=== PATIENT | male | born 1955 | race Caucasian/White ===

== ENCOUNTER 2017-10-31 06:10 | Observation (INO) | payer OTHER ==
[2017-10-31] MEDS ORDERED: Iopamidol 755 Mg/ML 100 ML Bottle IVPUSH ONE (07:26)
[2017-10-31] MEDS ORDERED: Iopamidol 755 MG/ML 50 ML Bottle IVPUSH ONE (07:26)
[2017-10-31] MEDS ORDERED: Sodium Chloride 0.9% 10 ML Syringe FLUSH PRN (07:26)
[2017-10-31] MEDS ORDERED: Sodium Chloride 0.9% 100 ML IV SCH (07:30)
--- NOTE | 2017-10-31 08:27 | CT ---
CT chest Technique: Multiple axial sections through the chest were obtained. Intravenous contrast was utilized. Study has been performed as a pulmonary angiogram protocol. Findings: Small bilateral pleural effusions are seen. Slightly prominent mediastinal lymph nodes are noted. Largest lymph node measures approximately 2.0 cm in size. Pulmonary arteries are well opacified. No filling defects are seen to indicate pulmonary embolism. Mild coronary artery calcification is seen. Increased lung markings are seen believed to represent mild pulmonary vascular congestion. Scattered emphysematous changes are seen within both lungs. Heart is mildly enlarged. Small portion of the visualized upper abdominal structures are within normal limits. Scattered degenerative spurring is noted within the spine. Impression: 1. No findings of pulmonary embolism. 2. Small bilateral pleural effusions with suggestion of pulmonary vascular congestion. Findings may represent CHF. 3. Emphysematous changes. 4. Slightly prominent lymph nodes within the mediastinum. No prior chest CT is available to confirm stability. Findings may relate to old inflammatory process. Recommend follow-up contrast-enhanced chest CT in 6 months to confirm stability. Diagnostic code #3
--- NOTE | 2017-10-31 08:35 | EDM.PDOC ---
ED HPI GENERAL MEDICAL PROBLEM - General Chief Complaint: Respiratory Problem Stated Complaint: SOB Time Seen by Provider: 10/31/17 07:07 Source of Information: Reports: Patient History Limitations: Reports: No Limitations - History of Present Illness INITIAL COMMENTS - FREE TEXT/NARRATIVE: The patient states that he has had dyspnea at rest, nasal congestion, and a cough occasionally productive of yellowish sputum for the past 2 days. He developed orthopnea last night. He denies recent chest pain or palpitations. No recent fever, nausea, vomiting, constipation, diarrhea, or urinary symptoms. No prior similar symptoms. The patient's PCP is Dr[facility] - Related Data Allergies Allergy/AdvReac Type Severity Reaction Status Date / Time No Known Allergies Allergy Verified 10/31/17 06:18 Home Meds: Home Meds Carvedilol 25 mg PO BID 10/17/14 [History] Ibuprofen 800 mg PO BID PRN 10/17/14 [History] Insulin Aspart [NovoLOG] 2 - 8 unit SUBCUT TIDMEALS 10/17/14 [History] Insulin Glargine,Hum.Rec.Anlog [Lantus Solostar] 50 units SUBCUT DAILY 10/17/14 [History] Lisinopril 10 mg PO DAILY 10/17/14 [History] amLODIPine Besylate [Amlodipine Besylate] 10 mg PO DAILY 10/17/14 [History] atorvaSTATin Calcium [Atorvastatin Calcium] 20 mg PO BEDTIME 10/17/14 [History] Cyclobenzaprine [Flexeril] 5 - 10 mg PO Q8H PRN 12/26/14 [History] Past Medical History Cardiovascular History: Reports: High Cholesterol, Hypertension Musculoskeletal History: Reports: Arthritis Endocrine/Metabolic History: Reports: Diabetes, Type II, Obesity/BMI 30+ Social & Family History - Tobacco Use Smoking Status *Q: Current Every Day Smoker Years of Tobacco use: 40 Packs/Tins Daily: 0.5 - Alcohol Use Alcohol Use History: Yes Date/Time of Last Drink Comment: Stopped drinking late - Recreational Drug Use Recreational Drug Use: No - Living Situation & Occupation Living situation: Reports: Single, Alone Occupation: Unemployed ED ROS GENERAL - Review of Systems Review Of Systems: ROS reveals no pertinent complaints other than HPI. ED EXAM, GENERAL - Physical Exam Exam: See Below Exam Limited By: No Limitations General Appearance: Alert, WD/WN, Mild Distress (Appears dyspneic, diaphoretic) Eye Exam: Bilateral Eye: Normal Inspection Ears: Normal External Exam, Hearing Grossly Normal Nose: Normal Inspection, No Blood Throat/Mouth: Normal Inspection, Normal Lips, Normal Voice, No Airway Compromise Head: Atraumatic, Normocephalic Neck: Normal Inspection, Full Range of Motion Respiratory/Chest: No Respiratory Distress, No Accessory Muscle Use, Crackles ( fine, bibasilar) Cardiovascular: Normal Peripheral Pulses, Regular Rate, Rhythm, No Gallop, No JVD, No Murmur, No Rub Peripheral Pulses: 3+: Radial (L), Radial (R) GI/Abdominal: Normal Bowel Sounds, Soft, Non-Tender, No Organomegaly, No Distention, No Abnormal Bruit, No Mass, Other (Obese) (Male) Exam: Deferred Rectal (Males) Exam: Deferred Back Exam: Normal Inspection, Full Range of Motion, Other (Lipoma) Extremities: Normal Inspection, Normal Range of Motion, No Pedal Edema, Normal Capillary Refill Neurological: Alert, Oriented, Normal Cognition, No Motor/Sensory Deficits Psychiatric: Normal Affect Skin Exam: Warm, Intact, Normal Color, No Rash, Diaphoretic EKG INTERPRETATION EKG Date: 10/31/17 Time: 06:22 Rhythm: Other (Sinus tachycardia) Rate (Beats/Min): 108 [place]: LAD-Left [place] Deviation P-Wave: Present QRS: RBBB ST-T: Normal QT: Normal Comparison: NA - No Prior EKG Course - Vital Signs Last Recorded V/S: Last Vital Signs Temp 36.6 C 10/31/17 06:19 Pulse 108 H 10/31/17 06:19 Resp 20 10/31/17 06:19 BP 154/101 H 10/31/17 06:19 Pulse Ox - Orders/Labs/Meds Orders: Active Orders 24 hr Category Date Time Status Admission Status [Patient Status] [ADT] Routine ADT 10/31/17 10:12 Active EKG Documentation Completion [RC] ASDIRECTED Care 10/31/17 06:28 Active Chest 1V Frontal [CR] Stat Exams 10/31/17 06:36 Taken Sodium Chloride 0.9% [Normal Saline] 100 ml Med 10/31/17 07:30 Active IV ASDIRECTED Sodium Chloride 0.9% [Saline Flush] Med 10/31/17 07:26 Active 10 ml FLUSH ONETIME PRN EKG 12 Lead [EK] Stat Ther 10/31/17 06:28 Ordered Medication Orders Sodium Chloride (Normal Saline) 100 mls @ 75 mls/hr IV ASDIRECTED RISHI Last Admin: 10/31/17 08:05 Dose: 75 mls/hr Sodium Chloride (Saline Flush) 10 ml FLUSH ONETIME PRN PRN Reason: IV FLUSH Last Admin: 10/31/17 08:05 Dose: 10 ml Labs: Laboratory Tests 10/31/17 10/31/17 10/31/17 Range/Units 06:25 06:25 06:25 WBC 8.56 (4.23-9.07) K/mm3 RBC 5.18 (4.63-6.08) M/mm3 Hgb 14.4 (13.7-17.5) gm/L Hct 44.3 (40.1-51.0) % MCV 85.5 (79.0-92.2) fl MCH 27.8 (25.7-32.2) pg MCHC 32.5 (32.2-35.5) g/dl RDW Std Deviation 42.0 (35.1-43.9) fL Plt Count 267 (163-337) K/mm3 MPV 11.1 (9.4-12.3) fl Neut % (Auto) 61.3 (34.0-67.9) % Lymph % (Auto) 25.5 (21.8-53.1) % [place] % (Auto) 9.1 (5.3-12.2) % Eos % (Auto) 3.5 (0.8-7.0) Baso % (Auto) 0.4 (0.1-1.2) % Neut # (Auto) 5.25 (1.78-5.38) K/mm3 Lymph # (Auto) 2.18 (1.32-3.57) K/mm3 [place] # (Auto) 0.78 (0.30-0.82) K/mm3 Eos # (Auto) 0.30 (0.04-0.54) K/mm3 Baso # (Auto) 0.03 (0.01-0.08) K/mm3 D-Dimer, Quantitative 2.48 H (0.19-0.50) mg/L Sodium 134 L (136-145) mEq/L Potassium 4.4 (3.5-5.1) mEq/L Chloride 102 (98-107) mEq/L Carbon Dioxide 26 (21-32) mEq/L Anion Gap 10.4 (5-15) BUN 11 (7-18) mg/dL Creatinine 1.0 (0.7-1.3) mg/dL Est Cr Clr Drug Dosing TNP Estimated GFR (MDRD) > 60 (>60) mL/min BUN/Creatinine Ratio 11.0 L (14-18) Glucose 287 H (74-106) mg/dL Calcium 9.5 (8.5-10.1) mg/dL Magnesium (1.8-2.4) mg/dl Total Bilirubin 0.5 (0.2-1.0) mg/dL AST 27 (15-37) U/L ALT 68 H (16-63) U/L Alkaline Phosphatase 112 (46-116) U/L Troponin I < 0.017 (0.00-0.056) ng/mL NT-Pro-B Natriuret Pep (0-125) pg/mL Total Protein 7.5 (6.4-8.2) g/dl Albumin 3.2 L (3.4-5.0) g/dl Globulin 4.3 gm/dL Albumin/Globulin Ratio 0.7 L (1-2) 18 10/31/17 Range/Units 06:25 06:25 WBC (4.23-9.07) K/mm3 RBC (4.63-6.08) M/mm3 Hgb (13.7-17.5) gm/L Hct (40.1-51.0) % MCV (79.0-92.2) fl MCH (25.7-32.2) pg MCHC (32.2-35.5) g/dl RDW Std Deviation (35.1-43.9) fL Plt Count (163-337) K/mm3 MPV (9.4-12.3) fl Neut % (Auto) (34.0-67.9) % Lymph % (Auto) (21.8-53.1) % [place] % (Auto) (5.3-12.2) % Eos % (Auto) (0.8-7.0) Baso % (Auto) (0.1-1.2) % Neut # (Auto) (1.78-5.38) K/mm3 Lymph # (Auto) (1.32-3.57) K/mm3 [place] # (Auto) (0.30-0.82) K/mm3 Eos # (Auto) (0.04-0.54) K/mm3 Baso # (Auto) (0.01-0.08) K/mm3 D-Dimer, Quantitative (0.19-0.50) mg/L Sodium (136-145) mEq/L Potassium (3.5-5.1) mEq/L Chloride (98-107) mEq/L Carbon Dioxide (21-32) mEq/L Anion Gap (5-15) BUN (7-18) mg/dL Creatinine (0.7-1.3) mg/dL Est Cr Clr Drug Dosing Estimated GFR (MDRD) (>60) mL/min BUN/Creatinine Ratio (14-18) Glucose (74-106) mg/dL Calcium (8.5-10.1) mg/dL Magnesium 1.9 (1.8-2.4) mg/dl Total Bilirubin (0.2-1.0) mg/dL AST (15-37) U/L ALT (16-63) U/L Alkaline Phosphatase (46-116) U/L Troponin I (0.00-0.056) ng/mL NT-Pro-B Natriuret Pep 1569 H (0-125) pg/mL Total Protein (6.4-8.2) g/dl Albumin (3.4-5.0) g/dl Globulin gm/dL Albumin/Globulin Ratio (1-2) Meds: Medications Generic Name Dose Route Start Last Admin Trade Name Freq PRN Reason Stop Dose Admin Sodium Chloride 100 mls @ 75 mls/hr 10/31/17 07:30 10/31/17 08:05 Normal Saline IV 75 mls/hr ASDIRECTED RISHI Administration Sodium Chloride 10 ml 10/31/17 07:26 10/31/17 08:05 Saline Flush FLUSH 10 ml ONETIME PRN Administration IV FLUSH Discontinued Medications Generic Name Dose Route Start Last Admin Trade Name Freq PRN Reason Stop Dose Admin Furosemide 40 mg 10/31/17 08:36 10/31/17 09:07 Lasix IVPUSH 10/31/17 08:37 40 mg NOW ONE Administration Iopamidol 50 ml 10/31/17 07:26 10/31/17 08:05 Isovue-370 (76%) IVPUSH 10/31/17 07:27 50 ml ONETIME ONE Administration Iopamidol 100 ml 10/31/17 07:26 10/31/17 08:05 Isovue-370 (76%) IVPUSH 10/31/17 07:27 100 ml ONETIME ONE Administration - Re-Assessments/Exams Free Text/Narrative Re-Assessment/Exam: 10/31/17 06:57 Portable chest radiograph reviewed. There is cardiomegaly and mild pulmonary vascular congestion, consistent with decompensated CHF. No pleural effusions seen. No focal infiltrate. No pneumothorax. Formal read per the Radiologist pending. 10/31/17 08:34 CT angiogram of the chest is read by Dr. Cross as: 1. No findings of pulmonary embolism. 2. Small bilateral pleural effusions with suggestion of pulmonary vascular congestion. Findings may represent CHF. 3. Emphysematous changes. 4. Slightly prominent lymph nodes within the mediastinum. No prior chest CT is available to confirm stability. Findings may relate to old inflammatory process. Recommend follow-up and contrast-enhanced chest CT in 6 months to confirm stability. 10/31/17 09:17 Test results discussed with the patient. I recommended admission to the hospital for an echocardiogram and medication modification. He agrees to admission. Case discussed with Dr. Rodriguez at 09:11. He agrees to admit the patient. 10/31/17 10:11 Notified that the patient only qualifies for observation at this time. Departure - Departure Time of Disposition: 09:15 Disposition: Refer to Observation Condition: Fair Clinical Impression: CHF (congestive heart failure), Hyperglycemia due to type 2 diabetes mellitus - Discharge Information Referrals: Hilaria Moreno DO [Primary Care Provider] - - My Orders Last 24 Hours: My Active Orders 10/31/17 06:28 EKG Documentation Completion [RC] ASDIRECTED EKG 12 Lead [EK] Stat 10/31/17 06:36 Chest 1V Frontal [CR] Stat 10/31/17 07:26 Sodium Chloride 0.9% [Saline Flush] 10 ml FLUSH ONETIME PRN 10/31/17 07:30 Sodium Chloride 0.9% [Normal Saline] 100 ml IV ASDIRECTED 10/31/17 10:12 Admission Status [Patient Status] [ADT] Routine - Assessment/Plan Last 24 Hours: My Active Orders 10/31/17 06:28 EKG Documentation Completion [RC] ASDIRECTED EKG 12 Lead [EK] Stat 10/31/17 06:36 Chest 1V Frontal [CR] Stat 10/31/17 07:26 Sodium Chloride 0.9% [Saline Flush] 10 ml FLUSH ONETIME PRN 10/31/17 07:30 Sodium Chloride 0.9% [Normal Saline] 100 ml IV ASDIRECTED 10/31/17 10:12 Admission Status [Patient Status] [ADT] Routine
[2017-10-31] MEDS ORDERED: Furosemide 40 MG/4 ML VIAL IVPUSH ONE (08:36)
--- NOTE | 2017-10-31 09:32 | PCM.HP ---
H&P History of Present Illness - General Date of Service: 10/31/17 Admit Problem/Dx: CHF Source of Information: Patient, Old Records, Provider, RN, RN Notes Reviewed History Limitations: Reports: No Limitations - History of Present Illness Initial Comments - Free Text/Narative: Noman Verduzco is a 62 yo male who presented to our ED today (10/31/17) with dyspnea at rest, nasal congestion, and a cough with occasional yellowish sputum production which has been present for the past 2 days. Reports of apnea which started last night. Denies any recent chest pain or palpitations. No recent fever, nausea, vomiting, constipation, diarrhea, urinary symptoms, or prior similar symptoms. In the ED temp was 36.6 Celsius. Pulse 108. Respirations 20. Blood pressure was elevated at 154/101. 12-lead EKG was obtained which shows sinus tachycardia at 108 bpm. A right bundle branch block is present. There is no prior EKG for comparison. No ST segment or T-wave abnormalities are noted. This is per the ED provider. Labs are obtained: There is no leukocytosis with a white count of 8.56. Hemoglobin 14.4. Hematocrit 44.3. He is normocytic. Platelets are good at 267,000. Neutrophils are good at 61.3%. D-dimer is high at 2.48. Sodium is just slightly low at 134. Potassium good at 4.4. Chloride 102. Carbon dioxide 26. Anion gap 10.4. BUN is 11. Creatinine 1.0. EGFR greater than 60. Glucose is high at 287. Calcium 9.5. Magnesium 1.9. Bilirubin 0.5. AST is 27, ALT 68, alkaline phosphatase 112. Troponin is negative at less than 0.017. Protein is 7.5. Albumin is slightly low at 3.2. ProBNP is 1569. He is given 40 mg IV push Lasix. Her chest x-ray is obtained and interpreted by Dr. Cross as having cardiomegaly with mild pulmonary vascular congestion. Chest CTA is obtained due to the elevated d-dimer. This is interpreted by Dr. Cross as "1. No findings of pulmonary embolism. 2. Small bilateral pleural effusions with suggestion of pulmonary vascular congestion area findings may represent CHF. 3. Emphysematous changes. 4. Slightly prominent lymph nodes within the mediastinum. No prior chest CTs available to confirm stability. Findings may relate to old inflammatory process. Recommend follow-up contrast enhanced chest CT in 6 months to confirm stability." He carries a history of: HLD, HTN, arthritis, type II DM. He is a current every day half pack a day smoker. He subsequently admitted to the medical floor observation status with telemetry. He is a full code. His primary care [facility] - Related Data Allergies/Adverse Reactions: Allergies Allergy/AdvReac Type Severity Reaction Status Date / Time No Known Allergies Allergy Verified 10/31/17 06:18 Home Medications: Home Meds Carvedilol 25 mg PO BID 10/17/14 [History] Ibuprofen 800 mg PO BID PRN 10/17/14 [History] Insulin Aspart [NovoLOG] 2 - 8 unit SUBCUT TIDMEALS 10/17/14 [History] Insulin Glargine,Hum.Rec.Anlog [Lantus Solostar] 50 units SUBCUT DAILY 10/17/14 [History] Lisinopril 10 mg PO DAILY 10/17/14 [History] amLODIPine Besylate [Amlodipine Besylate] 10 mg PO DAILY 10/17/14 [History] atorvaSTATin Calcium [Atorvastatin Calcium] 20 mg PO BEDTIME 10/17/14 [History] Cyclobenzaprine [Flexeril] 5 - 10 mg PO Q8H PRN 12/26/14 [History] Past Medical History Endocrine/Metabolic History: Reports: Diabetes, Type I - Past Surgical History Musculoskeletal Surgical History: Reports: Knee Replacement Social & Family History - Tobacco Use Smoking Status *Q: Current Every Day Smoker Years of Tobacco use: 50 Packs/Tins Daily: 0.5 - Recreational Drug Use Recreational Drug Use: No H&P Review of Systems - Review of Systems: Review Of Systems: See Below General: Reports: No Symptoms. Denies: Fever, Chills, Malaise, Weakness, Fatigue HEENT: Reports: Sinus Congestion. Denies: Ear Pain, Eye Pain, Rhinitis, Post Nasal Drip, Sore Throat, Visual Changes Pulmonary: Reports: Shortness of Breath, Cough. Denies: Wheezing, Pleuritic Chest Pain Cardiovascular: Reports: Dyspnea on Exertion, Orthopnea, Edema ("mild in both legs"), Blood Pressure Problem. Denies: Chest Pain, Palpitations, Lightheadedness Gastrointestinal: Reports: No Symptoms. Denies: Abdominal Pain, Constipation, Diarrhea, Nausea, Vomiting Genitourinary: Reports: No Symptoms. Denies: Dysuria, Burning Musculoskeletal: Reports: Other (leg cramping ) Skin: Reports: No Symptoms Psychiatric: Reports: No Symptoms Neurological: Reports: No Symptoms Hematologic/Lymphatic: Reports: No Symptoms Immunologic: Reports: No Symptoms Exam - Exam Exam: See Below - Vital Signs Vital Signs: Last Vital Signs Temp 97.9 F 10/31/17 06:19 Pulse 108 H 10/31/17 06:19 Resp 20 10/31/17 06:19 BP 154/101 H 10/31/17 06:19 Pulse Ox Weight: 215 lb - Exam Quality Assessment: DVT Prophylaxis General: Alert, Oriented, Cooperative, Other (Obese) HEENT: Conjunctiva Clear, EACs Clear, EOMI, Hearing Intact, Mucosa Moist & North , Nares Patent, PERRLA Neck: Supple, Trachea Midline Lungs: Clear to Auscultation, Normal Respiratory Effort Cardiovascular: Regular Rate, Regular Rhythm GI/Abdominal Exam: Normal Bowel Sounds, Soft, Non-Tender, No Distention (Male) Exam: Deferred Rectal (Males) Exam: Deferred Back Exam: Normal Inspection, Full Range of Motion Extremities: Normal Inspection, Normal Range of Motion, Non-Tender, No Pedal Edema, Normal Capillary Refill Peripheral Pulses: 2+: Posterior Tibial (L), Posterior Tibial (R), Dorsalis Pedis (L), Dorsalis Pedis (R), 3+: Radial (L), Radial (R) Skin: Warm, Dry, Intact Neurological: Cranial Nerves Intact (grossly) Neuro Extensive - Mental Status: Alert, Oriented x3, Normal Mood/Affect, Memory Intact Psychiatric: Alert, Normal Affect, Normal Mood - Patient Data Lab Results Last 24 hrs: Laboratory Results - last 24 hr 10/31/17 10/31/17 10/31/17 Range/Units 06:25 06:25 06:25 WBC 8.56 (4.23-9.07) K/mm3 RBC 5.18 (4.63-6.08) M/mm3 Hgb 14.4 (13.7-17.5) gm/L Hct 44.3 (40.1-51.0) % MCV 85.5 (79.0-92.2) fl MCH 27.8 (25.7-32.2) pg MCHC 32.5 (32.2-35.5) g/dl RDW Std Deviation 42.0 (35.1-43.9) fL Plt Count 267 (163-337) K/mm3 MPV 11.1 (9.4-12.3) fl Neut % (Auto) 61.3 (34.0-67.9) % Lymph % (Auto) 25.5 (21.8-53.1) % Walsh % (Auto) 9.1 (5.3-12.2) % Eos % (Auto) 3.5 (0.8-7.0) Baso % (Auto) 0.4 (0.1-1.2) % Neut # (Auto) 5.25 (1.78-5.38) K/mm3 Lymph # (Auto) 2.18 (1.32-3.57) K/mm3 Walsh # (Auto) 0.78 (0.30-0.82) K/mm3 Eos # (Auto) 0.30 (0.04-0.54) K/mm3 Baso # (Auto) 0.03 (0.01-0.08) K/mm3 D-Dimer, Quantitative 2.48 H (0.19-0.50) mg/L Sodium 134 L (136-145) mEq/L Potassium 4.4 (3.5-5.1) mEq/L Chloride 102 (98-107) mEq/L Carbon Dioxide 26 (21-32) mEq/L Anion Gap 10.4 (5-15) BUN 11 (7-18) mg/dL Creatinine 1.0 (0.7-1.3) mg/dL Est Cr Clr Drug Dosing TNP Estimated GFR (MDRD) > 60 (>60) mL/min BUN/Creatinine Ratio 11.0 L (14-18) Glucose 287 H (74-106) mg/dL Calcium 9.5 (8.5-10.1) mg/dL Magnesium (1.8-2.4) mg/dl Total Bilirubin 0.5 (0.2-1.0) mg/dL AST 27 (15-37) U/L ALT 68 H (16-63) U/L Alkaline Phosphatase 112 (46-116) U/L Troponin I < 0.017 (0.00-0.056) ng/mL NT-Pro-B Natriuret Pep (0-125) pg/mL Total Protein 7.5 (6.4-8.2) g/dl Albumin 3.2 L (3.4-5.0) g/dl Globulin 4.3 gm/dL Albumin/Globulin Ratio 0.7 L (1-2) 10/31/17 10/31/17 Range/Units 06:25 06:25 WBC (4.23-9.07) K/mm3 RBC (4.63-6.08) M/mm3 Hgb (13.7-17.5) gm/L Hct (40.1-51.0) % MCV (79.0-92.2) fl MCH (25.7-32.2) pg MCHC (32.2-35.5) g/dl RDW Std Deviation (35.1-43.9) fL Plt Count (163-337) K/mm3 MPV (9.4-12.3) fl Neut % (Auto) (34.0-67.9) % Lymph % (Auto) (21.8-53.1) % Walsh % (Auto) (5.3-12.2) % Eos % (Auto) (0.8-7.0) Baso % (Auto) (0.1-1.2) % Neut # (Auto) (1.78-5.38) K/mm3 Lymph # (Auto) (1.32-3.57) K/mm3 Walsh # (Auto) (0.30-0.82) K/mm3 Eos # (Auto) (0.04-0.54) K/mm3 Baso # (Auto) (0.01-0.08) K/mm3 D-Dimer, Quantitative (0.19-0.50) mg/L Sodium (136-145) mEq/L Potassium (3.5-5.1) mEq/L Chloride (98-107) mEq/L Carbon Dioxide (21-32) mEq/L Anion Gap (5-15) BUN (7-18) mg/dL Creatinine (0.7-1.3) mg/dL Est Cr Clr Drug Dosing Estimated GFR (MDRD) (>60) mL/min BUN/Creatinine Ratio (14-18) Glucose (74-106) mg/dL Calcium (8.5-10.1) mg/dL Magnesium 1.9 (1.8-2.4) mg/dl Total Bilirubin (0.2-1.0) mg/dL AST (15-37) U/L ALT (16-63) U/L Alkaline Phosphatase (46-116) U/L Troponin I (0.00-0.056) ng/mL NT-Pro-B Natriuret Pep 1569 H (0-125) pg/mL Total Protein (6.4-8.2) g/dl Albumin (3.4-5.0) g/dl Globulin gm/dL Albumin/Globulin Ratio (1-2) Result Diagrams: 10/31/17 06:25 18 06:25 - Problem List (1) CHF (congestive heart failure) SNOMED Code(s): 64249311 ICD Code: I50.9 - HEART FAILURE, UNSPECIFIED Status: Suspected Priority: Medium Current Visit: Yes Qualifiers: Heart failure type: unspecified Heart failure chronicity: unspecified Qualified Code(s): I50.9 - Heart failure, unspecified (2) HLD (hyperlipidemia) SNOMED Code(s): 30999935 ICD Code: E78.5 - HYPERLIPIDEMIA, UNSPECIFIED Status: Chronic Priority: Medium Current Visit: No Qualifiers: Hyperlipidemia type: unspecified Qualified Code(s): E78.5 - Hyperlipidemia , unspecified (3) HTN (hypertension) SNOMED Code(s): 72873156 ICD Code: I10 - ESSENTIAL (PRIMARY) HYPERTENSION Status: Chronic Priority : Medium Current Visit: Yes Qualifiers: Hypertension type: unspecified Qualified Code(s): I10 - Essential (primary ) hypertension (4) Arthritis SNOMED Code(s): 5147335 ICD Code: M19.90 - UNSPECIFIED OSTEOARTHRITIS, UNSPECIFIED SITE Status: Chronic Priority: Medium Current Visit: No (5) Tobacco use disorder SNOMED Code(s): 322389099 ICD Code: F17.200 - NICOTINE DEPENDENCE, UNSPECIFIED, UNCOMPLICATED Status : Chronic Priority: Medium Current Visit: Yes (6) Hyperglycemia due to type 2 diabetes mellitus SNOMED Code(s): 303027168621283, 195029797683945 ICD Code: E11.65 - TYPE 2 DIABETES MELLITUS WITH HYPERGLYCEMIA Status: Acute Priority: High Current Visit: Yes Qualifiers: Diabetes mellitus senior living insulin use: with senior living use Qualified Code( s): E11.65 - Type 2 diabetes mellitus with hyperglycemia; Z79.4 - 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 (7) Elevated brain natriuretic peptide (BNP) level SNOMED Code(s): 800110686, 589606283 ICD Code: R79.89 - OTHER SPECIFIED ABNORMAL FINDINGS OF BLOOD CHEMISTRY Status: Acute Priority: High Current Visit: Yes (8) Elevated d-dimer SNOMED Code(s): 251432309 ICD Code: R79.89 - OTHER SPECIFIED ABNORMAL FINDINGS OF BLOOD CHEMISTRY Status: Acute Priority: High Current Visit: Yes Problem List Initiated/Reviewed/Updated: Yes Orders Last 24hrs: Active Orders 24 hr Category Date Time Status EKG Documentation Completion [RC] ASDIRECTED Care 10/31/17 06:28 Active Chest 1V Frontal [CR] Stat Exams 10/31/17 06:36 Taken Sodium Chloride 0.9% [Normal Saline] 100 ml Med 10/31/17 07:30 Active IV ASDIRECTED Sodium Chloride 0.9% [Saline Flush] Med 10/31/17 07:26 Active 10 ml FLUSH ONETIME PRN EKG 12 Lead [EK] Stat Ther 10/31/17 06:28 Ordered Medication Orders Sodium Chloride (Normal Saline) 100 mls @ 75 mls/hr IV ASDIRECTED RISHI Last Admin: 10/31/17 08:05 Dose: 75 mls/hr Sodium Chloride (Saline Flush) 10 ml FLUSH ONETIME PRN PRN Reason: IV FLUSH Last Admin: 10/31/17 08:05 Dose: 10 ml Assessment/Plan Comment:: I/P: Acute: Suspected CHF -No history of CHF per patient and prior charts -Reports dyspnea at rest, productive cough, orthopnea, mild leg swelling over past few days -Pro BNP 1569 in ED -40mg IVP lasix given in ED with good urine return -CXR in ED (10/31/17) notes cardiomegaly and mild pulmonary congestion -Chest CTA (10/31/17): -No findings of PE -Small bilateral pleural effusions suggesting pulmonary vascular congestion. Findings may represent CHF -Emphysematous changes -Slightly prominent lymph nodes within mediastinum. No prior chest CT available to confirm stability. Findings may be related to old inflammatory process. Recommend follow-up contrast enhanced chest CT in 6 months to confirm stability. -Start Lasix 20mg daily IVP -Echo obtained 10/31/17 - results pending -Monitor I&O along with daily weight Hyperglycemia -Type II DM -On home long acting and sliding scale insulin -Reports he takes blood sugar at every meal with sugars usually 150-160 range -Home long acting and sliding scale per protocol here -Blood sugar check QID AC and Bedtime -Diabetic Ed consult - reports he sees [place] life skills educator but it has been awhile -A1C ordered -Recommend Jardiance or Victoza for cardiac benefit Tobacco use disorder -Reportedly smokes 0.5 pack per day -40 year smoking history -Has "cut down quite a bit" over past few months -Tobacco patch while here -Smoking cessation counseling Elevated D-Dimer -D-dimer 2.48 -Negative CTA for PE Enlarged lymph nodes within mediastinum -Largest is 2 cm in size -No prior CTA for comparison -May be due to old inflammatory process -Dr. 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
--- NOTE | 2017-10-31 10:39 | CR ---
Chest: Frontal view of the chest was obtained. Comparison: No prior chest x-ray. Heart is enlarged. Pulmonary vessels are congested. Lungs otherwise are clear. Bony structures are grossly intact. Impression: 1. Cardiomegaly with mild pulmonary vascular congestion. Diagnostic code #3
[2017-10-31] MEDS ORDERED: Ondansetron 4 MG/2 ML SDV IV PRN (11:53)
[2017-10-31] MEDS ORDERED: Polyethylene Glycol 3350 Powder 17 GM Packet PO PRN (11:53)
[2017-10-31] MEDS ORDERED: Ondansetron 4 MG Tab.DIS PO PRN (11:53)
[2017-10-31] MEDS ORDERED: Bisacodyl 5 MG Tab PO PRN (11:53)
[2017-10-31] MEDS ORDERED: Acetaminophen 325 MG Tab PO PRN (11:53)
[2017-10-31] MEDS ORDERED: Docusate Sodium 100 MG Cap PO PRN (11:53)
[2017-10-31] MEDS ORDERED: Metoprolol Tartrate 5 MG/5 ML SDV IVPUSH PRN (11:57)
[2017-10-31] MEDS ORDERED: hydrALAZINE 20 MG/ML SDV IVPUSH PRN (11:57)
[2017-10-31] MEDS ORDERED: 50% Dextrose in Water 50 ML Syringe IVPUSH PRN (11:59)
[2017-10-31] MEDS ORDERED: Cyclobenzaprine 10 MG Tab PO PRN (13:11)
[2017-10-31] MEDS ORDERED: Magnesium Oxide 400 MG Tab PO ONE (14:03)
[2017-10-31] MEDS: Insulin Aspart 100 Units/ML 3 ML Pen SUBCUT SCH ×3 (16:57→21:31)
[2017-10-31] MEDS ORDERED: Nicotine 21 MG/24 Hr Patch TRDERM ONE ×2 (17:16→18:00)
[2017-10-31] MEDS: Carvedilol 12.5 MG Tab PO SCH (20:41)
[2017-10-31] MEDS ORDERED: Simvastatin 20 MG Tab PO SCH (21:00)
[2017-11-01] MEDS: Albuterol/Ipratropium 3.0-0.5 MG/3 ML Neb Soln NEB PRN ×2 (01:21→12:15)
[2017-11-01] MEDS ORDERED: Furosemide 40 MG/4 ML VIAL IVPUSH ONE (02:21)
[2017-11-01] MEDS ORDERED: Morphine 2 MG/ML Syringe IVPUSH PRN (02:23)
[2017-11-01] MEDS: Acetaminophen/HYDROcodone 325-5 MG Tab PO PRN ×3 (02:44→13:14)
[2017-11-01] MEDS: Insulin Aspart 100 Units/ML 3 ML Pen SUBCUT SCH (08:23)
[2017-11-01] MEDS: Carvedilol 12.5 MG Tab PO SCH (08:25)
[2017-11-01] MEDS ORDERED: amLODIPine 10 MG Tab PO SCH (09:00)
[2017-11-01] MEDS ORDERED: Furosemide 20 MG/2 ML VIAL IVPUSH SCH (09:00)
[2017-11-01] MEDS ORDERED: Insulin Detemir 100 Units/ML 3 ML Pen SUBCUT SCH ×2 (09:00→21:00)
[2017-11-01] MEDS ORDERED: Aspirin 81 MG Tab.Chew PO SCH (09:00)
[2017-11-01] MEDS ORDERED: Nicotine 21 MG/24 Hr Patch TRDERM SCH (09:00)
[2017-11-01] MEDS ORDERED: Magnesium Oxide 400 MG Tab PO ONE (09:00)
--- NOTE | 2017-11-01 09:31 | PCM.PN ---
- General Info Date of Service: 11/01/17 Admission Dx/Problem (Free Text): CHF - Patient Data Vitals - Most Recent: Last Vital Signs Temp 98.1 F 10/31/17 14:54 Pulse 97 11/01/17 08:25 Resp 20 10/31/17 20:38 BP 129/64 11/01/17 08:25 Pulse Ox 96 10/31/17 20:38 Weight - Most Recent: 215 lb I&O - Last 24 Hours: Intake & Output 10/31/17 11/01/17 11/01/17 22:59 06:59 14:59 Intake Total 680 500 Balance 680 500 Lab Results Last 24 Hours: Laboratory Results - last 24 hr 10/31/17 10/31/17 10/31/17 Range/Units 06:25 06:25 16:56 WBC (4.23-9.07) K/mm3 RBC (4.63-6.08) M/mm3 Hgb (13.7-17.5) gm/L Hct (40.1-51.0) % MCV (79.0-92.2) fl MCH (25.7-32.2) pg MCHC (32.2-35.5) g/dl RDW Std Deviation (35.1-43.9) fL Plt Count (163-337) K/mm3 MPV (9.4-12.3) fl Neut % (Auto) (34.0-67.9) % Lymph % (Auto) (21.8-53.1) % [place] % (Auto) (5.3-12.2) % Eos % (Auto) (0.8-7.0) Baso % (Auto) (0.1-1.2) % Neut # (Auto) (1.78-5.38) K/mm3 Lymph # (Auto) (1.32-3.57) K/mm3 [place] # (Auto) (0.30-0.82) K/mm3 Eos # (Auto) (0.04-0.54) K/mm3 Baso # (Auto) (0.01-0.08) K/mm3 Sodium (136-145) mEq/L Potassium (3.5-5.1) mEq/L Chloride (98-107) mEq/L Carbon Dioxide (21-32) mEq/L Anion Gap (5-15) BUN (7-18) mg/dL Creatinine (0.7-1.3) mg/dL Est Cr Clr Drug Dosing mL/min Estimated GFR (MDRD) (>60) mL/min BUN/Creatinine Ratio (14-18) Glucose (74-106) mg/dL POC Glucose 205 H (70-105) mg/dL Hemoglobin A1c 8.90 H (4.50-6.20) % Calcium (8.5-10.1) mg/dL Magnesium 1.9 (1.8-2.4) mg/dl Troponin I (0.00-0.056) ng/mL C-Reactive Protein (<1.0) mg/dL NT-Pro-B Natriuret Pep (0-125) pg/mL Triglycerides (<150) mg/dL Cholesterol (<200) mg/dL LDL Cholesterol Direct (<100) mg/dL HDL Cholesterol (40-59) mg/dL Ur Random Microalbumin (1.3-20.0) mg/L 10/31/17 11/01/17 11/01/17 Range/Units 20:35 02:20 03:00 WBC (4.23-9.07) K/mm3 RBC (4.63-6.08) M/mm3 Hgb (13.7-17.5) gm/L Hct (40.1-51.0) % MCV (79.0-92.2) fl MCH (25.7-32.2) pg MCHC (32.2-35.5) g/dl RDW Std Deviation (35.1-43.9) fL Plt Count (163-337) K/mm3 MPV (9.4-12.3) fl Neut % (Auto) (34.0-67.9) % Lymph % (Auto) (21.8-53.1) % [place] % (Auto) (5.3-12.2) % Eos % (Auto) (0.8-7.0) Baso % (Auto) (0.1-1.2) % Neut # (Auto) (1.78-5.38) K/mm3 Lymph # (Auto) (1.32-3.57) K/mm3 [place] # (Auto) (0.30-0.82) K/mm3 Eos # (Auto) (0.04-0.54) K/mm3 Baso # (Auto) (0.01-0.08) K/mm3 Sodium (136-145) mEq/L Potassium (3.5-5.1) mEq/L Chloride (98-107) mEq/L Carbon Dioxide (21-32) mEq/L Anion Gap (5-15) BUN (7-18) mg/dL Creatinine (0.7-1.3) mg/dL Est Cr Clr Drug Dosing mL/min Estimated GFR (MDRD) (>60) mL/min BUN/Creatinine Ratio (14-18) Glucose (74-106) mg/dL POC Glucose 213 H (70-105) mg/dL Hemoglobin A1c (4.50-6.20) % Calcium (8.5-10.1) mg/dL Magnesium (1.8-2.4) mg/dl Troponin I < 0.017 (0.00-0.056) ng/mL C-Reactive Protein (<1.0) mg/dL NT-Pro-B Natriuret Pep (0-125) pg/mL Triglycerides (<150) mg/dL Cholesterol (<200) mg/dL LDL Cholesterol Direct (<100) mg/dL HDL Cholesterol (40-59) mg/dL Ur Random Microalbumin 41.1 H (1.3-20.0) mg/L 11/01/1718 11/01/17 Range/Units 06:14 06:21 06:21 WBC 6.76 (4.23-9.07) K/mm3 RBC 4.94 (4.63-6.08) M/mm3 Hgb 13.7 (13.7-17.5) gm/L Hct 42.2 (40.1-51.0) % MCV 85.4 (79.0-92.2) fl MCH 27.7 (25.7-32.2) pg MCHC 32.5 (32.2-35.5) g/dl RDW Std Deviation 42.3 (35.1-43.9) fL Plt Count 280 (163-337) K/mm3 MPV 11.2 (9.4-12.3) fl Neut % (Auto) 53.8 (34.0-67.9) % Lymph % (Auto) 31.5 (21.8-53.1) % [place] % (Auto) 8.6 (5.3-12.2) % Eos % (Auto) 5.5 (0.8-7.0) Baso % (Auto) 0.3 (0.1-1.2) % Neut # (Auto) 3.64 (1.78-5.38) K/mm3 Lymph # (Auto) 2.13 (1.32-3.57) K/mm3 [place] # (Auto) 0.58 (0.30-0.82) K/mm3 Eos # (Auto) 0.37 (0.04-0.54) K/mm3 Baso # (Auto) 0.02 (0.01-0.08) K/mm3 Sodium 136 (136-145) mEq/L Potassium 3.9 (3.5-5.1) mEq/L Chloride 102 (98-107) mEq/L Carbon Dioxide 27 (21-32) mEq/L Anion Gap 10.9 (5-15) BUN 17 (7-18) mg/dL Creatinine 0.9 (0.7-1.3) mg/dL Est Cr Clr Drug Dosing 92.96 mL/min Estimated GFR (MDRD) > 60 (>60) mL/min BUN/Creatinine Ratio 18.9 H (14-18) Glucose 184 H (74-106) mg/dL POC Glucose 203 H (70-105) mg/dL Hemoglobin A1c (4.50-6.20) % Calcium 8.9 (8.5-10.1) mg/dL Magnesium 1.6 L (1.8-2.4) mg/dl Troponin I (0.00-0.056) ng/mL C-Reactive Protein 2.2 H* (<1.0) mg/dL NT-Pro-B Natriuret Pep (0-125) pg/mL Triglycerides 148 (<150) mg/dL Cholesterol 160 (<200) mg/dL LDL Cholesterol Direct 117 H* (<100) mg/dL HDL Cholesterol 28.0 L (40-59) mg/dL Ur Random Microalbumin (1.3-20.0) mg/L 11/01/17 Range/Units 06:21 WBC (4.23-9.07) K/mm3 RBC (4.63-6.08) M/mm3 Hgb (13.7-17.5) gm/L Hct (40.1-51.0) % MCV (79.0-92.2) fl MCH (25.7-32.2) pg MCHC (32.2-35.5) g/dl RDW Std Deviation (35.1-43.9) fL Plt Count (163-337) K/mm3 MPV (9.4-12.3) fl Neut % (Auto) (34.0-67.9) % Lymph % (Auto) (21.8-53.1) % [place] % (Auto) (5.3-12.2) % Eos % (Auto) (0.8-7.0) Baso % (Auto) (0.1-1.2) % Neut # (Auto) (1.78-5.38) K/mm3 Lymph # (Auto) (1.32-3.57) K/mm3 [place] # (Auto) (0.30-0.82) K/mm3 Eos # (Auto) (0.04-0.54) K/mm3 Baso # (Auto) (0.01-0.08) K/mm3 Sodium (136-145) mEq/L Potassium (3.5-5.1) mEq/L Chloride (98-107) mEq/L Carbon Dioxide (21-32) mEq/L Anion Gap (5-15) BUN (7-18) mg/dL Creatinine (0.7-1.3) mg/dL Est Cr Clr Drug Dosing mL/min Estimated GFR (MDRD) (>60) mL/min BUN/Creatinine Ratio (14-18) Glucose (74-106) mg/dL POC Glucose (70-105) mg/dL Hemoglobin A1c (4.50-6.20) % Calcium (8.5-10.1) mg/dL Magnesium (1.8-2.4) mg/dl Troponin I (0.00-0.056) ng/mL C-Reactive Protein (<1.0) mg/dL NT-Pro-B Natriuret Pep 1292 H (0-125) pg/mL Triglycerides (<150) mg/dL Cholesterol (<200) mg/dL LDL Cholesterol Direct (<100) mg/dL HDL Cholesterol (40-59) mg/dL Ur Random Microalbumin (1.3-20.0) mg/L Med Orders - Current: Current Medications Acetaminophen (Tylenol) 650 mg PO Q4H PRN PRN Reason: Pain (Mild 1-3)/fever Hydrocodone Bitart/Acetaminophen ([place] 325-5 Mg) 1 tab PO Q4H PRN PRN Reason: Pain (moderate 4-6) Last Admin: 11/01/17 08:26 Dose: 1 tab Albuterol/Ipratropium (Duoneb 3.0-0.5 Mg/3 Ml) 3 ml NEB Q4H PRN PRN Reason: Shortness Of Breath/wheezing Last Admin: 11/01/17 01:21 Dose: 3 ml Amlodipine Besylate (Norvasc) 10 mg PO DAILY [facility] Last Admin: 11/01/17 08:24 Dose: 10 mg Aspirin (Aspirin) 81 mg PO DAILY [facility] Last Admin: 11/01/17 08:26 Dose: 81 mg Bisacodyl (Dulcolax) 5 mg PO DAILY PRN PRN Reason: Constipation Carvedilol (Coreg) 25 mg PO BID [facility] Last Admin: 11/01/17 08:25 Dose: 25 mg Cyclobenzaprine HCl (Flexeril) 5 mg PO Q8H PRN PRN Reason: Pain Dextrose/Water (Dextrose 50% In Water) 50 ml IVPUSH ASDIRECTED PRN PRN Reason: Hypoglycemia Docusate Sodium (Colace) 100 mg PO BID PRN PRN Reason: Constipation Furosemide (Lasix) 20 mg IVPUSH DAILY [facility] Last Admin: 11/01/17 08:26 Dose: 20 mg Hydralazine HCl (Apresoline) 20 mg IVPUSH Q6H PRN PRN Reason: Hypertension Insulin Aspart (Novolog) 0 unit SUBCUT QIDACANDBED [facility]; Protocol Insulin Detemir (Levemir) 28 unit SUBCUT BID [facility] Magnesium Sulfate (Pharmacy To Dose - Magnesium Replacement) 1 dose .XX ASDIRECTED [facility] Metoprolol Tartrate (Lopressor) 5 mg IVPUSH Q4H PRN PRN Reason: Tachycardia Miscellaneous Information (Remove Patch) 1 ea TRDERM DAILY [facility] Last Admin: 11/01/17 08:27 Dose: 1 ea Morphine Sulfate (Morphine) 1 mg IVPUSH Q4H PRN PRN Reason: Shortness of Breath Nicotine (Habitrol) 21 mg TRDERM DAILY [facility] Last Admin: 11/01/17 08:26 Dose: 21 mg Ondansetron HCl (Zofran Odt) 4 mg PO Q6H PRN PRN Reason: nausea, able to take PO Ondansetron HCl (Zofran) 4 mg IV Q6H PRN PRN Reason: Nausea/Vomiting Polyethylene Glycol (Miralax) 17 gm PO DAILY PRN PRN Reason: Constipation Potassium Chloride (Pharmacy To Dose - Potassium Replacement) 1 dose .XX ASDIRECTED [facility] Senna/Docusate Sodium (Senna Plus) 1 tab PO BID PRN PRN Reason: Constipation Simvastatin (Zocor) 20 mg PO BEDTIME [facility] Last Admin: 10/31/17 20:42 Dose: 20 mg Sodium Chloride (Saline Flush) 10 ml FLUSH ONETIME PRN PRN Reason: IV FLUSH Last Admin: 10/31/17 08:05 Dose: 10 ml Discontinued Medications Furosemide (Lasix) 40 mg IVPUSH NOW ONE Stop: 10/31/17 08:37 Last Admin: 10/31/17 09:07 Dose: 40 mg Furosemide (Lasix) 40 mg IVPUSH NOW ONE Stop: 11/01/17 02:22 Last Admin: 11/01/17 02:38 Dose: 40 mg Sodium Chloride (Normal Saline) 100 mls @ 75 mls/hr IV ASDIRECTED [facility] Last Admin: 10/31/17 08:05 Dose: 75 mls/hr Insulin Aspart (Novolog) 0 unit SUBCUT QIDACANDBED [facility]; Protocol Last Admin: 11/01/17 08:23 Dose: 2 units Insulin Detemir (Levemir) 25 unit SUBCUT BID [facility] Last Admin: 11/01/17 08:27 Dose: 25 units Iopamidol (Isovue-370 (76%)) 50 ml IVPUSH ONETIME ONE Stop: 10/31/17 07:27 Last Admin: 10/31/17 08:05 Dose: 50 ml Iopamidol (Isovue-370 (76%)) 100 ml IVPUSH ONETIME ONE Stop: 10/31/17 07:27 Last Admin: 10/31/17 08:05 Dose: 100 ml Magnesium Oxide (Magnesium Oxide) 400 mg PO ONETIME ONE Stop: 10/31/17 14:04 Last Admin: 10/31/17 14:24 Dose: 400 mg Magnesium Oxide (Magnesium Oxide) 800 mg PO ONETIME ONE Stop: 11/01/17 09:01 Last Admin: 11/01/17 08:25 Dose: 800 mg Nicotine (Habitrol) 21 mg TRDERM ONETIME ONE Stop: 10/31/17 18:01 Last Admin: 10/31/17 18:05 Dose: 21 mg - Problem List & Annotations (1) CHF (congestive heart failure) SNOMED Code(s): 99682781 Code(s): I50.9 - HEART FAILURE, UNSPECIFIED Status: Suspected Priority: Medium Current Visit: Yes Qualifiers: Heart failure type: unspecified Heart failure chronicity: unspecified Qualified Code(s): I50.9 - Heart failure, unspecified (2) HLD (hyperlipidemia) SNOMED Code(s): 57566783 Code(s): E78.5 - HYPERLIPIDEMIA, UNSPECIFIED Status: Chronic Priority: Medium Current Visit: No Qualifiers: Hyperlipidemia type: unspecified Qualified Code(s): E78.5 - Hyperlipidemia , unspecified (3) HTN (hypertension) SNOMED Code(s): 63445459 Code(s): I10 - ESSENTIAL (PRIMARY) HYPERTENSION Status: Chronic Priority : Medium Current Visit: Yes Qualifiers: Hypertension type: unspecified Qualified Code(s): I10 - Essential (primary ) hypertension (4) Arthritis SNOMED Code(s): 5761894 Code(s): M19.90 - UNSPECIFIED OSTEOARTHRITIS, UNSPECIFIED SITE Status: Chronic Priority: Medium Current Visit: No (5) Tobacco use disorder SNOMED Code(s): 204726377 Code(s): F17.200 - NICOTINE DEPENDENCE, UNSPECIFIED, UNCOMPLICATED Status: Chronic Priority: Medium Current Visit: Yes (6) Hyperglycemia due to type 2 diabetes mellitus SNOMED Code(s): 149863137861994, 710105210841291 Code(s): E11.65 - TYPE 2 DIABETES MELLITUS WITH HYPERGLYCEMIA Status: Acute Priority: High Current Visit: Yes Qualifiers: Diabetes mellitus prison insulin 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 Qualified Code( s): E11.65 - Type 2 diabetes mellitus with hyperglycemia; Z79.4 - certified 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 assistant ( 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 (7) Elevated brain natriuretic peptide (BNP) level SNOMED Code(s): 668475071, 991663546 Code(s): R79.89 - OTHER SPECIFIED ABNORMAL FINDINGS OF BLOOD CHEMISTRY Status: Acute Priority: High Current Visit: Yes (8) Elevated d-dimer SNOMED Code(s): 629936160 Code(s): R79.89 - OTHER SPECIFIED ABNORMAL FINDINGS OF BLOOD CHEMISTRY Status: Acute Priority: High Current Visit: Yes - Problem List Review Problem List Initiated/Reviewed/Updated: Yes - My Orders Last 24 Hours: My Active Orders 10/31/17 11:53 Ambulate [RC] ASDIRECTED Blood Glucose Check, Bedside [RC] QIDACANDBED Height and Weight [RC] 04 Oxygen Therapy [RC] PRN Up With Assistance [RC] ASDIRECTED Up ad [place] [RC] ASDIRECTED VTE/DVT Education [RC] DAILY Vital Signs [RC] Q4H Consult to Diabetic Nurse Specialist [CONS] Routine Consult to Tile Picker [CONS] Routine Acetaminophen [Tylenol] 650 mg PO Q4H PRN Acetaminophen/HYDROcodone [[place] 325-5 MG] 1 tab PO Q4H PRN Albuterol/Ipratropium [DuoNeb 3.0-0.5 MG/3 ML] 3 ml NEB Q4H PRN Bisacodyl [Dulcolax] 5 mg PO DAILY PRN Docusate Sodium [Colace] 100 mg PO BID PRN Docusate Sodium/Sennosides [Senna Plus] 1 tab PO BID PRN Ondansetron [Zofran ODT] 4 mg PO Q6H PRN Ondansetron [Zofran] 4 mg IV Q6H PRN Polyethylene Glycol 3350 [MiraLAX] 17 gm PO DAILY PRN Resuscitation Status Routine 10/31/17 11:54 Intake and Output [RC] 04,16 Antiembolic Hose [OM.PC] Per Unit Routine 10/31/17 11:56 RT Aerosol Therapy [RC] ASDIRECTED 10/31/17 11:57 Metoprolol Tartrate [Lopressor] 5 mg IVPUSH Q4H PRN hydrALAZINE [Apresoline] 20 mg IVPUSH Q6H PRN 10/31/17 11:59 Dextrose 50% in Water 50 ml IVPUSH ASDIRECTED PRN 10/31/17 12:00 Magnesium Rep Pharmacy to Dose [Pharmacy to Dose - Magnesium Replacement] 1 dose .XX ASDIRECTED Potassium Rep Pharmacy to Dose [Pharmacy to Dose - Potassium Replacement] 1 dose .XX ASDIRECTED 10/31/17 21:00 Carvedilol [Coreg] 25 mg PO BID Simvastatin [Zocor] 20 mg PO BEDTIME 10/31/17 Lunch 2 Gram Sodium Diet [DIET] 11/01/17 09:00 Furosemide [Lasix] 20 mg IVPUSH DAILY Nicotine [Habitrol] 21 mg TRDERM DAILY amLODIPine [Norvasc] 10 mg PO DAILY 11/01/17 11:00 Insulin Aspart [NovoLOG] See Protocol SUBCUT QIDACANDBED 11/01/17 21:00 Insulin Detemir [Levemir] 28 unit SUBCUT BID 11/02/17 05:11 BASIC METABOLIC PANEL,BMP [CHEM] AM CBC WITH AUTO DIFF [HEME] AM CRP [C-REACTIVE PROTEIN] [CHEM] AM MAGNESIUM [CHEM] AM PRO B-TYPE NATRIUR PEPT,BNPPRO [CHEM] DAILY 11/02/17 08:00 Chest 2V [CR] Routine 11/03/17 05:11 BASIC METABOLIC PANEL,BMP [CHEM] AM CBC WITH AUTO DIFF [HEME] AM CRP [C-REACTIVE PROTEIN] [CHEM] AM MAGNESIUM [CHEM] AM PRO B-TYPE NATRIUR PEPT,BNPPRO [CHEM] DAILY 11/04/17 05:11 BASIC METABOLIC PANEL,BMP [CHEM] AM CBC WITH AUTO DIFF [HEME] AM CRP [C-REACTIVE PROTEIN] [CHEM] AM MAGNESIUM [CHEM] AM PRO B-TYPE NATRIUR PEPT,BNPPRO [CHEM] DAILY - Plan Plan:: I/P: Acute: Suspected CHF -No history of CHF per patient and prior charts -Reports dyspnea at rest, productive cough, orthopnea, mild leg swelling over past few days -Pro BNP 1569 in ED -40mg IVP lasix given in ED with good urine return -CXR in ED (10/31/17) notes cardiomegaly and mild pulmonary congestion -Chest CTA (10/31/17): -No findings of PE -Small bilateral pleural effusions suggesting pulmonary vascular congestion. Findings may represent CHF -Emphysematous changes -Slightly prominent lymph nodes within mediastinum. No prior chest CT available to confirm stability. Findings may be related to old inflammatory process. Recommend follow-up contrast enhanced chest CT in 6 months to confirm stability. -Start Lasix 20mg daily IVP -Echo obtained 10/31/17 - results pending -Monitor I&O along with daily weight -Repeat CXR tomorrow Hyperglycemia -Type II DM -On home long acting and sliding scale insulin -Reports he takes blood sugar at every meal with sugars usually 150-160 range -Home long acting and sliding scale per protocol here -Blood sugar check QID AC and Bedtime -Diabetic Ed consult - reports he sees ID night club manager but it has been awhile -Suggests increasing both long and short acting insulin -Recommending outpatient follow-up with ID night club manager after discharge -A1C 8.9 -Recommend Jardiance or Victoza for cardiac benefit Tobacco use disorder -Reportedly smokes 0.5 pack per day -40 year smoking history -Has "cut down quite a bit" over past few months -Tobacco patch while here -Smoking cessation counseling Elevated D-Dimer -D-dimer 2.48 -Negative CTA for PE Enlarged lymph nodes within mediastinum -Largest is 2 cm in size -No prior CTA for comparison -May be due to old inflammatory process -Dr. Cross recommends follow-up contrast-enhanced chest CT in 6 months to confirm stability Chronic: Arthritis HLD - lipid panel ordered HTN - PRN and home meds Type II DM - as above Obesity - Tile Picker consult Hx/o septic joint - knee Plan: Admit to medical floor observation status with telemetry Home medications as ordered Start daily ASA Routine AM labs Other orders as indicated above PT/OT consult Diabetic ed consult Tile Picker consult DVT/PE prophylaxis: TYRESE hose and ambulation
[2017-11-01] MEDS ORDERED: Insulin Aspart 100 Units/ML 3 ML Pen SUBCUT SCH (11:00)
[2017-11-01] MEDS ORDERED: Furosemide 20 MG/2 ML VIAL IVPUSH ONE (11:26)
--- NOTE | 2017-11-01 12:09 | PCM.DCSUM1 ---
Discharge Summary - Hospital Course HPI Initial Comments: Catina Verduzco is a 62 yo male who presented to our ED today (10/31/17) with dyspnea at rest, nasal congestion, and a cough with occasional yellowish sputum production which has been present for the past 2 days. Reports of apnea which started last night. Denies any recent chest pain or palpitations. No recent fever, nausea, vomiting, constipation, diarrhea, urinary symptoms, or prior similar symptoms. In the ED temp was 36.6 Celsius. Pulse 108. Respirations 20. Blood pressure was elevated at 154/101. 12-lead EKG was obtained which shows sinus tachycardia at 108 bpm. A right bundle branch block is present. There is no prior EKG for comparison. No ST segment or T-wave abnormalities are noted. This is per the ED provider. Labs are obtained: There is no leukocytosis with a white count of 8.56. Hemoglobin 14.4. Hematocrit 44.3. He is normocytic. Platelets are good at 267,000. Neutrophils are good at 61.3%. D-dimer is high at 2.48. Sodium is just slightly low at 134. Potassium good at 4.4. Chloride 102. Carbon dioxide 26. Anion gap 10.4. BUN is 11. Creatinine 1.0. EGFR greater than 60. Glucose is high at 287. Calcium 9.5. Magnesium 1.9. Bilirubin 0.5. AST is 27, ALT 68, alkaline phosphatase 112. Troponin is negative at less than 0.017. Protein is 7.5. Albumin is slightly low at 3.2. ProBNP is 1569. He is given 40 mg IV push Lasix. Her chest x-ray is obtained and interpreted by Dr. Cross as having cardiomegaly with mild pulmonary vascular congestion. Chest CTA is obtained due to the elevated d-dimer. This is interpreted by Dr. Cross as "1. No findings of pulmonary embolism. 2. Small bilateral pleural effusions with suggestion of pulmonary vascular congestion area findings may represent CHF. 3. Emphysematous changes. 4. Slightly prominent lymph nodes within the mediastinum. No prior chest CTs available to confirm stability. Findings may relate to old inflammatory process. Recommend follow-up contrast enhanced chest CT in 6 months to confirm stability." He carries a history of: HLD, HTN, arthritis, type II DM. He is a current every day half pack a day smoker. He subsequently admitted to the medical floor observation status with telemetry. He is a full code. His primary care provider is Dr. Moreno with the [facility] - Discharge Data Discharge Date: 11/01/17 (Admit date: 10/31/17) Discharge Disposition: Home, W Home Health Agency 06 Condition: Fair - Discharge Diagnosis/Problem(s) (1) CHF (congestive heart failure) SNOMED Code(s): 72540493 ICD Code: I50.9 - HEART FAILURE, UNSPECIFIED Status: Acute Priority: High Current Visit: Yes Qualifiers: Heart failure type: unspecified Heart failure chronicity: unspecified Qualified Code(s): I50.9 - Heart failure, unspecified (2) HLD (hyperlipidemia) SNOMED Code(s): 08684807 ICD Code: E78.5 - HYPERLIPIDEMIA, UNSPECIFIED Status: Chronic Priority: High Current Visit: Yes Qualifiers: Hyperlipidemia type: unspecified Qualified Code(s): E78.5 - Hyperlipidemia , unspecified (3) HTN (hypertension) SNOMED Code(s): 95165434 ICD Code: I10 - ESSENTIAL (PRIMARY) HYPERTENSION Status: Chronic Priority : Medium Current Visit: Yes Qualifiers: Hypertension type: unspecified Qualified Code(s): I10 - Essential (primary ) hypertension (4) Arthritis SNOMED Code(s): 1848224 ICD Code: M19.90 - UNSPECIFIED OSTEOARTHRITIS, UNSPECIFIED SITE Status: Chronic Priority: Medium Current Visit: No (5) Tobacco use disorder SNOMED Code(s): 348044553 ICD Code: F17.200 - NICOTINE DEPENDENCE, UNSPECIFIED, UNCOMPLICATED Status : Chronic Priority: Medium Current Visit: Yes (6) Hyperglycemia due to type 2 diabetes mellitus SNOMED Code(s): 160694001054447, 829564143826273 ICD Code: E11.65 - TYPE 2 DIABETES MELLITUS WITH HYPERGLYCEMIA Status: Acute Priority: High Current Visit: Yes Qualifiers: Diabetes mellitus [facility] insulin use: with parts counterman use Qualified Code( s): E11.65 - Type 2 diabetes mellitus with hyperglycemia; Z79.4 - half-way ( 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 (7) Elevated brain natriuretic peptide (BNP) level SNOMED Code(s): 734570417, 833339070 ICD Code: R79.89 - OTHER SPECIFIED ABNORMAL FINDINGS OF BLOOD CHEMISTRY Status: Acute Priority: High Current Visit: Yes (8) Elevated d-dimer SNOMED Code(s): 100058392 ICD Code: R79.89 - OTHER SPECIFIED ABNORMAL FINDINGS OF BLOOD CHEMISTRY Status: Acute Priority: High Current Visit: Yes - Patient Summary/Data Consults: Consultations 10/31/17 11:53 Consult to Diabetic Nurse Specialist [CONS] Routine Consult to Lottery Office Manager [CONS] Routine 10/31/17 13:11 Consult to Occupational Therapy [OT Evaluation and Treatment] [CONS] Routine PT Evaluation and Treatment [CONS] Routine 11/01/17 10:53 Consult to Case Management [CONS] Routine Labs Pending at D/C: None Recommended Follow-up Testing/Procedures: Follow-up with PCP within 7-10 days. Recommend re-check potassium at that time. Hospital Course: I/P: Acute: CHF -No history of CHF per patient and prior charts, however old echo from shows CHF -Reports dyspnea at rest, productive cough, orthopnea, mild leg swelling over past few days -Pro BNP 1569 in ED-->1292 -40mg IVP lasix given in ED with good urine return -CXR in ED (10/31/17) notes cardiomegaly and mild pulmonary congestion -Chest CTA (10/31/17): -No findings of PE -Small bilateral pleural effusions suggesting pulmonary vascular congestion. Findings may represent CHF -Emphysematous changes -Slightly prominent lymph nodes within mediastinum. No prior chest CT available to confirm stability. Findings may be related to old inflammatory process. Recommend follow-up contrast enhanced chest CT in 6 months to confirm stability. -Start Lasix 20mg daily IVP-> switch to 40mg daily PO, supplement potassium daily -Echo obtained 10/31/17: 1. LVEF, by visual estimation is 20-25% 2. Global and severely decreased left ventricular systolic function 3. Elevated left atrial and left ventricular end-diastolic pressures 4. Restrictive (Grade 3) pattern of LV diastolic filling 5. Low normal right ventricular systolic function 6. Moderately dilated left atrium 7. Mild to moderate mitral valve regurgitation 8. The right ventricular systolic pressure is moderately elevated at 42.5mmHg 9. The inferior vena cava is dilated with respiratory size variation greater than 50% 10. No significant change compared to 01/20/13 -Monitor I&O along with daily weight Hyperglycemia -Type II DM -On home long acting and sliding scale insulin -Reports he takes blood sugar at every meal with sugars usually 150-160 range -Home long acting and sliding scale per protocol here -Blood sugar check QID AC and Bedtime -Diabetic Ed consult - reports he sees [facility] but it has been awhile -Suggests increasing both long and short acting insulin -Recommending outpatient follow-up with [facility] educ[facility] after discharge -A1C 8.9 -Recommend Jardiance or Victoza for cardiac benefit Tobacco use disorder -Reportedly smokes 0.5 pack per day -40 year smoking history -Has "cut down quite a bit" over past few months -Tobacco patch while here -Smoking cessation counseling preformed -Will discharge on nicotine patch - patient requesting Elevated D-Dimer -D-dimer 2.48 -Negative CTA for PE Enlarged lymph nodes within mediastinum -Largest is 2 cm in size -No prior CTA for comparison -May be due to old inflammatory process -Dr. Cross recommends follow-up contrast-enhanced chest CT in 6 months to confirm stability Chronic: Arthritis HLD - lipid panel: Triglycerides 148, total cholesterol 160, LDL 117, HDL 28 -> increase statin HTN - PRN and home meds Type II DM - as above Obesity - Lottery Office Manager consult Hx/o septic joint - knee Plan: Admit to medical floor observation status with telemetry Home medications as ordered Start daily ASA Routine AM labs Other orders as indicated above PT/OT consult Diabetic ed consult Lottery Office Manager consult DVT/PE prophylaxis: TYRESE hose and ambulation Code Status: Full Code; PCP: Dr. Moreno with the [facility] Overall catina responded rapidly to treatment and did quite well. He was given lasix in the ED, which continued on the floor and had good urine output. He was down 4 lbs at discharge. His SOB resolved with lasix administration. Echo was obtained as above. CTA was negative for PE however enlarged lymph nodes were noted as above and follow-up CT with contrast is recommended in 6 months. His lipid panel was found to have elevated LDL and low HDL so his statin was increased as above. He was also started on a daily ASA. He is already on an ACEI. Our cosmetology educator did visit with Catina and recommended increasing both his long and short acting insulin. He may benefit from an oral medication such as Jardiance or Victoza and this can be explored with his PCP. His A1C was quite high at 8.9. Suggest close follow-up with [facility]metology educator outpatient as well. PT and OT evaluated the patient and recommended return home with no further PT/OT services needed while here. He will be discharged home on 40mg daily PO lasix as well as potassium supplementation. He was instructed to take a second lasix pill and contact a healthcare provider if he notes increased SOB or swelling. Recommending follow-up with PCP within 7-10 days of discharge, sooner if need. He should have his potassium checked at that time. He was instructed to weigh himself daily, take his BP twice a day, and check blood sugars 3 times a day, recording all this and bring it with to all medical appointments. He was instructed to reduce sodium, having a 2 gram limit. He should also monitor fluid intake and limit himself to 2L. He will have home health as well. He will be discharged today home with home health. I contacted Dr. Moreno to discuss Catina with her as well. I personally met with Catina [id number] to discuss his homebound status. He has difficulty getting around due to a prior knee problem and utilizes crutches. He also lives alone. We discussed his plan of care. Due to the above listed diseases I feel he would benefit from home health - alf, PT, and diabetic education. She can be monitored for this by her PCP, Dr. Moreno who can adjust services as needed. We discussed Catina's tobacco usage. He reports 0.5 pack a day smoking for 40 years. He has been trying to cut down and reports this is the least he has ever smoked before. He had a nicotine patch here and would like to continue this at home. Prescription given. We discussed importance for overall health as well as specific risk with his diabetes and heart disease. We also discussed practical resources for quitting such as his PCP and the [place] quitline. He was given information for this by case management. - Patient Instructions Diet: Low Sodium Fluid Restriction: 2000 mL Activity: As Tolerated Driving: Do Not Drive (today ) Notify Provider of: Fever, Increased Pain, Swelling and Redness, Nausea and/or Vomiting - Discharge Plan Prescriptions/Med Rec: Aspirin 81 mg PO DAILY #30 tab.chew atorvaSTATin [Lipitor] 40 mg PO BEDTIME #30 tab Furosemide [Lasix] 40 mg PO DAILY #30 tablet Insulin Aspart [NovoLOG] See Protocol SUBCUT QIDACANDBED #10 pen Insulin Glarg,Human.Rec.Analog [Lantus Solostar] 56 unit SUBCUT DAILY #10 pen Nicotine [Nicotine Patch] 21 mg TD DAILY #14 patch Potassium Chloride 20 meq PO DAILY #30 tablet.er Home Medications: Home Meds Carvedilol 25 mg PO BID 10/17/14 [History] Ibuprofen 800 mg PO BID PRN 10/17/14 [History] Lisinopril 10 mg PO DAILY 10/17/14 [History] amLODIPine Besylate [Amlodipine Besylate] 10 mg PO DAILY 10/17/14 [History] Cyclobenzaprine [Flexeril] 5 - 10 mg PO Q8H PRN 12/26/14 [History] Aspirin 81 mg PO DAILY #30 tab.chew 11/01/17 [Rx] Furosemide [Lasix] 40 mg PO DAILY #30 tablet 11/01/17 [Rx] Insulin Aspart [NovoLOG] See Protocol SUBCUT QIDACANDBED #10 pen 11/01/17 [Rx] Insulin Glarg,Human.Rec.Analog [Lantus Solostar] 56 unit SUBCUT DAILY #10 pen [Rx] Nicotine [Nicotine Patch] 21 mg TD DAILY #14 patch 11/01/17 [Rx] Potassium Chloride 20 meq PO DAILY #30 tablet.er 11/01/17 [Rx] atorvaSTATin [Lipitor] 40 mg PO BEDTIME #30 tab 11/01/17 [Rx] Patient Handouts: Fluid Restriction, Low-Sodium Eating Plan, Heart Failure, Ncha-rx-Imns, Blood Glucose Monitoring, Adult, Steps to Quit Smoking Referrals: Hilaria Moreno DO [Primary Care Provider] - 11/09/17 9:30 am (Please follow-up with your primary care doctor, Dr. Moreno, on SundayNovember 09 at 0930.) - Discharge Summary/Plan Comment DC Time >30 min.: Yes (40 mins) - General Info Date of Service: 11/01/17 Admission Dx/Problem (Free Text: CHF Subjective Update: In to see Catina. He is lying in bed resting. He had an episode of SOB last night. No chest pain or palpitations. 12-lead EKG was obtained and was essentially unchanged from prior. Troponin was <0.017 in ED and repeat last night was still <0.017. Lasix 40mg IVP was given and symptoms resolved rapidly. He otherwise had an ok night. His labs today look good. Pro-BNP has lowered. Echo results are back and show some rather severe heart failure. The echo notes a prior echo from 2012 which the patient does not remember having. We discussed plan of care and follow-up after discharge and he voiced understanding. He will be discharged home today. Functional Status: Reports: Pain Controlled, Tolerating Diet, Ambulating, Urinating. Denies: New Symptoms - Review of Systems General: Reports: No Symptoms. Denies: Fever, Weakness, Fatigue, Malaise HEENT: Reports: No Symptoms. Denies: Dysphasia, Eye Pain, Sinus Congestion Pulmonary: Reports: No Symptoms. Denies: Shortness of Breath, Cough, Sputum, Wheezing Cardiovascular: Reports: Dyspnea on Exertion. Denies: Chest Pain, Palpitations , Edema, Lightheadedness Gastrointestinal: Reports: No Symptoms. Denies: Abdominal Pain, Constipation, Diarrhea, Nausea, Vomiting Genitourinary: Reports: No Symptoms Musculoskeletal: Reports: No Symptoms Skin: Reports: No Symptoms Neurological: Reports: No Symptoms Psychiatric: Reports: No Symptoms - Patient Data Vitals - Most Recent: Last Vital Signs Temp 97.9 F 11/01/17 08:19 Pulse 97 11/01/17 08:25 Resp 16 11/01/17 08:19 BP 129/64 11/01/17 08:25 Pulse Ox 93 L 11/01/17 08:19 Weight - Most Recent: 215 lb I&O - Last 24 hours: Intake & Output 10/31/17 11/01/17 11/01/17 22:59 06:59 14:59 Intake Total 680 500 720 Balance 680 500 720 Lab Results - Last 24 hrs: Laboratory Results - last 24 hr 10/31/17 10/31/17 10/31/17 Range/Units 06:25 06:25 16:56 WBC (4.23-9.07) K/mm3 RBC (4.63-6.08) M/mm3 Hgb (13.7-17.5) gm/L Hct (40.1-51.0) % MCV (79.0-92.2) fl MCH (25.7-32.2) pg MCHC (32.2-35.5) g/dl RDW Std Deviation (35.1-43.9) fL Plt Count (163-337) K/mm3 MPV (9.4-12.3) fl Neut % (Auto) (34.0-67.9) % Lymph % (Auto) (21.8-53.1) % [place] % (Auto) (5.3-12.2) % Eos % (Auto) (0.8-7.0) Baso % (Auto) (0.1-1.2) % Neut # (Auto) (1.78-5.38) K/mm3 Lymph # (Auto) (1.32-3.57) K/mm3 [place] # (Auto) (0.30-0.82) K/mm3 Eos # (Auto) (0.04-0.54) K/mm3 Baso # (Auto) (0.01-0.08) K/mm3 Sodium (136-145) mEq/L Potassium (3.5-5.1) mEq/L Chloride (98-107) mEq/L Carbon Dioxide (21-32) mEq/L Anion Gap (5-15) BUN (7-18) mg/dL Creatinine (0.7-1.3) mg/dL Est Cr Clr Drug Dosing mL/min Estimated GFR (MDRD) (>60) mL/min BUN/Creatinine Ratio (14-18) Glucose (74-106) mg/dL POC Glucose 205 H (70-105) mg/dL Hemoglobin A1c 8.90 H (4.50-6.20) % Calcium (8.5-10.1) mg/dL Magnesium 1.9 (1.8-2.4) mg/dl Troponin I (0.00-0.056) ng/mL C-Reactive Protein (<1.0) mg/dL NT-Pro-B Natriuret Pep (0-125) pg/mL Triglycerides (<150) mg/dL Cholesterol (<200) mg/dL LDL Cholesterol Direct (<100) mg/dL HDL Cholesterol (40-59) mg/dL Ur Random Microalbumin (1.3-20.0) mg/L 10/31/17 11/01/17 11/01/17 Range/Units 20:35 02:20 03:00 WBC (4.23-9.07) K/mm3 RBC (4.63-6.08) M/mm3 Hgb (13.7-17.5) gm/L Hct (40.1-51.0) % MCV (79.0-92.2) fl MCH (25.7-32.2) pg MCHC (32.2-35.5) g/dl RDW Std Deviation (35.1-43.9) fL Plt Count (163-337) K/mm3 MPV (9.4-12.3) fl Neut % (Auto) (34.0-67.9) % Lymph % (Auto) (21.8-53.1) % [place] % (Auto) (5.3-12.2) % Eos % (Auto) (0.8-7.0) Baso % (Auto) (0.1-1.2) % Neut # (Auto) (1.78-5.38) K/mm3 Lymph # (Auto) (1.32-3.57) K/mm3 [place] # (Auto) (0.30-0.82) K/mm3 Eos # (Auto) (0.04-0.54) K/mm3 Baso # (Auto) (0.01-0.08) K/mm3 Sodium (136-145) mEq/L Potassium (3.5-5.1) mEq/L Chloride (98-107) mEq/L Carbon Dioxide (21-32) mEq/L Anion Gap (5-15) BUN (7-18) mg/dL Creatinine (0.7-1.3) mg/dL Est Cr Clr Drug Dosing mL/min Estimated GFR (MDRD) (>60) mL/min BUN/Creatinine Ratio (14-18) Glucose (74-106) mg/dL POC Glucose 213 H (70-105) mg/dL Hemoglobin A1c (4.50-6.20) % Calcium (8.5-10.1) mg/dL Magnesium (1.8-2.4) mg/dl Troponin I < 0.017 (0.00-0.056) ng/mL C-Reactive Protein (<1.0) mg/dL NT-Pro-B Natriuret Pep (0-125) pg/mL Triglycerides (<150) mg/dL Cholesterol (<200) mg/dL LDL Cholesterol Direct (<100) mg/dL HDL Cholesterol (40-59) mg/dL Ur Random Microalbumin 41.1 H (1.3-20.0) mg/L 11/01/17 11/01/17 11/01/17 Range/Units 06:14 06:21 06:21 WBC 6.76 (4.23-9.07) K/mm3 RBC 4.94 (4.63-6.08) M/mm3 Hgb 13.7 (13.7-17.5) gm/L Hct 42.2 (40.1-51.0) % MCV 85.4 (79.0-92.2) fl MCH 27.7 (25.7-32.2) pg MCHC 32.5 (32.2-35.5) g/dl RDW Std Deviation 42.3 (35.1-43.9) fL Plt Count 280 (163-337) K/mm3 MPV 11.2 (9.4-12.3) fl Neut % (Auto) 53.8 (34.0-67.9) % Lymph % (Auto) 31.5 (21.8-53.1) % [place] % (Auto) 8.6 (5.3-12.2) % Eos % (Auto) 5.5 (0.8-7.0) Baso % (Auto) 0.3 (0.1-1.2) % Neut # (Auto) 3.64 (1.78-5.38) K/mm3 Lymph # (Auto) 2.13 (1.32-3.57) K/mm3 [place] # (Auto) 0.58 (0.30-0.82) K/mm3 Eos # (Auto) 0.37 (0.04-0.54) K/mm3 Baso # (Auto) 0.02 (0.01-0.08) K/mm3 Sodium 136 (136-145) mEq/L Potassium 3.9 (3.5-5.1) mEq/L Chloride 102 (98-107) mEq/L Carbon Dioxide 27 (21-32) mEq/L Anion Gap 10.9 (5-15) BUN 17 (7-18) mg/dL Creatinine 0.9 (0.7-1.3) mg/dL Est Cr Clr Drug Dosing 92.96 mL/min Estimated GFR (MDRD) > 60 (>60) mL/min BUN/Creatinine Ratio 18.9 H (14-18) Glucose 184 H (74-106) mg/dL POC Glucose 203 H (70-105) mg/dL Hemoglobin A1c (4.50-6.20) % Calcium 8.9 (8.5-10.1) mg/dL Magnesium 1.6 L (1.8-2.4) mg/dl Troponin I (0.00-0.056) ng/mL C-Reactive Protein 2.2 H* (<1.0) mg/dL NT-Pro-B Natriuret Pep (0-125) pg/mL Triglycerides 148 (<150) mg/dL Cholesterol 160 (<200) mg/dL LDL Cholesterol Direct 117 H* (<100) mg/dL HDL Cholesterol 28.0 L (40-59) mg/dL Ur Random Microalbumin (1.3-20.0) mg/L 11/01/17 Range/Units 06:21 WBC (4.23-9.07) K/mm3 RBC (4.63-6.08) M/mm3 Hgb (13.7-17.5) gm/L Hct (40.1-51.0) % MCV (79.0-92.2) fl MCH (25.7-32.2) pg MCHC (32.2-35.5) g/dl RDW Std Deviation (35.1-43.9) fL Plt Count (163-337) K/mm3 MPV (9.4-12.3) fl Neut % (Auto) (34.0-67.9) % Lymph % (Auto) (21.8-53.1) % [place] % (Auto) (5.3-12.2) % Eos % (Auto) (0.8-7.0) Baso % (Auto) (0.1-1.2) % Neut # (Auto) (1.78-5.38) K/mm3 Lymph # (Auto) (1.32-3.57) K/mm3 [place] # (Auto) (0.30-0.82) K/mm3 Eos # (Auto) (0.04-0.54) K/mm3 Baso # (Auto) (0.01-0.08) K/mm3 Sodium (136-145) mEq/L Potassium (3.5-5.1) mEq/L Chloride (98-107) mEq/L Carbon Dioxide (21-32) mEq/L Anion Gap (5-15) BUN (7-18) mg/dL Creatinine (0.7-1.3) mg/dL Est Cr Clr Drug Dosing mL/min Estimated GFR (MDRD) (>60) mL/min BUN/Creatinine Ratio (14-18) Glucose (74-106) mg/dL POC Glucose (70-105) mg/dL Hemoglobin A1c (4.50-6.20) % Calcium (8.5-10.1) mg/dL Magnesium (1.8-2.4) mg/dl Troponin I (0.00-0.056) ng/mL C-Reactive Protein (<1.0) mg/dL NT-Pro-B Natriuret Pep 1292 H (0-125) pg/mL Triglycerides (<150) mg/dL Cholesterol (<200) mg/dL LDL Cholesterol Direct (<100) mg/dL HDL Cholesterol (40-59) mg/dL Ur Random Microalbumin (1.3-20.0) mg/L Med Orders - Current: Current Medications Acetaminophen (Tylenol) 650 mg PO Q4H PRN PRN Reason: Pain (Mild 1-3)/fever Hydrocodone Bitart/Acetaminophen ([place] 325-5 Mg) 1 tab PO Q4H PRN PRN Reason: Pain (moderate 4-6) Last Admin: 11/01/17 08:26 Dose: 1 tab Albuterol/Ipratropium (Duoneb 3.0-0.5 Mg/3 Ml) 3 ml NEB Q4H PRN PRN Reason: Shortness Of Breath/wheezing Last Admin: 11/01/17 01:21 Dose: 3 ml Amlodipine Besylate (Norvasc) 10 mg PO DAILY [facility] Last Admin: 11/01/17 08:24 Dose: 10 mg Aspirin (Aspirin) 81 mg PO DAILY [facility] Last Admin: 11/01/17 08:26 Dose: 81 mg Bisacodyl (Dulcolax) 5 mg PO DAILY PRN PRN Reason: Constipation Carvedilol (Coreg) 25 mg PO BID [facility] Last Admin: 11/01/17 08:25 Dose: 25 mg Cyclobenzaprine HCl (Flexeril) 5 mg PO Q8H PRN PRN Reason: Pain Dextrose/Water (Dextrose 50% In Water) 50 ml IVPUSH ASDIRECTED PRN PRN Reason: Hypoglycemia Docusate Sodium (Colace) 100 mg PO BID PRN PRN Reason: Constipation Furosemide (Lasix) 20 mg IVPUSH DAILY [facility] Last Admin: 11/01/17 08:26 Dose: 20 mg Hydralazine HCl (Apresoline) 20 mg IVPUSH Q6H PRN PRN Reason: Hypertension Insulin Aspart (Novolog) 0 unit SUBCUT QIDACANDBED [facility]; Protocol Insulin Detemir (Levemir) 28 unit SUBCUT BID [facility] Magnesium Sulfate (Pharmacy To Dose - Magnesium Replacement) 1 dose .XX ASDIRECTED [facility] Metoprolol Tartrate (Lopressor) 5 mg IVPUSH Q4H PRN PRN Reason: Tachycardia Miscellaneous Information (Remove Patch) 1 ea TRDERM DAILY [facility] Last Admin: 11/01/17 08:27 Dose: 1 ea Morphine Sulfate (Morphine) 1 mg IVPUSH Q4H PRN PRN Reason: Shortness of Breath Nicotine (Habitrol) 21 mg TRDERM DAILY [facility] Last Admin: 11/01/17 08:26 Dose: 21 mg Ondansetron HCl (Zofran Odt) 4 mg PO Q6H PRN PRN Reason: nausea, able to take PO Ondansetron HCl (Zofran) 4 mg IV Q6H PRN PRN Reason: Nausea/Vomiting Polyethylene Glycol (Miralax) 17 gm PO DAILY PRN PRN Reason: Constipation Potassium Chloride (Pharmacy To Dose - Potassium Replacement) 1 dose .XX ASDIRECTED [facility] Senna/Docusate Sodium (Senna Plus) 1 tab PO BID PRN PRN Reason: Constipation Simvastatin (Zocor) 40 mg PO BEDTIME [facility] Sodium Chloride (Saline Flush) 10 ml FLUSH ONETIME PRN PRN Reason: IV FLUSH Last Admin: 10/31/17 08:05 Dose: 10 ml Discontinued Medications Furosemide (Lasix) 40 mg IVPUSH NOW ONE Stop: 10/31/17 08:37 Last Admin: 10/31/17 09:07 Dose: 40 mg Furosemide (Lasix) 40 mg IVPUSH NOW ONE Stop: 11/01/17 02:22 Last Admin: 11/01/17 02:38 Dose: 40 mg Furosemide (Lasix) 20 mg IVPUSH NOW ONE Stop: 11/01/17 11:27 Sodium Chloride (Normal Saline) 100 mls @ 75 mls/hr IV ASDIRECTED [facility] Last Admin: 10/31/17 08:05 Dose: 75 mls/hr Insulin Aspart (Novolog) 0 unit SUBCUT QIDACANDBED [facility]; Protocol Last Admin: 11/01/17 08:23 Dose: 2 units Insulin Detemir (Levemir) 25 unit SUBCUT BID [facility] Last Admin: 11/01/17 08:27 Dose: 25 units Iopamidol (Isovue-370 (76%)) 50 ml IVPUSH ONETIME ONE Stop: 10/31/17 07:27 Last Admin: 10/31/17 08:05 Dose: 50 ml Iopamidol (Isovue-370 (76%)) 100 ml IVPUSH ONETIME ONE Stop: 10/31/17 07:27 Last Admin: 10/31/17 08:05 Dose: 100 ml Magnesium Oxide (Magnesium Oxide) 400 mg PO ONETIME ONE Stop: 10/31/17 14:04 Last Admin: 10/31/17 14:24 Dose: 400 mg Magnesium Oxide (Magnesium Oxide) 800 mg PO ONETIME ONE Stop: 11/01/17 09:01 Last Admin: 11/01/17 08:25 Dose: 800 mg Nicotine (Habitrol) 21 mg TRDERM ONETIME ONE Stop: 10/31/17 18:01 Last Admin: 10/31/17 18:05 Dose: 21 mg Simvastatin (Zocor) 20 mg PO BEDTIME [facility] Last Admin: 10/31/17 20:42 Dose: 20 mg - Exam Quality Assessment: Reports: DVT Prophylaxis General: Reports: Alert, Oriented, Cooperative, No Acute Distress HEENT: Reports: Pupils Equal, Pupils Reactive, EOMI, Mucous Membr. Moist/[place] Neck: Reports: Supple, Trachea Midline, No JVD Lungs: Reports: Normal Respiratory Effort, Decreased Breath Sounds, Wheezing Cardiovascular: Reports: Regular Rate, Regular Rhythm GI/Abdominal Exam: Normal Bowel Sounds, Soft, Non-Tender, No Distention (Male) Exam: Deferred Rectal (Males) Exam: Deferred Back Exam: Reports: Normal Inspection, Full Range of Motion Extremities: Normal Inspection, Normal Range of Motion, Non-Tender, No Pedal Edema, Normal Capillary Refill, Other (on crutches due to prior knee surgery ) Skin: Reports: Warm, Dry, Intact Neurological: Reports: No New Focal Deficit Psy/Mental Status: Reports: Alert, Normal Affect
[2017-11-01 13:14] VITALS: BP 109/65
[2017-11-01] MEDS ORDERED: Simvastatin 40 MG Tab PO SCH (21:00)
== END 2017-11-01 15:40 | disposition home health service (06) ==
LOC: JD.ED 06:10 → JD.MS 10:12
PROVIDERS: ADMIT Internal Medicine; ATTEND Internal Medicine
DX: I11.0 Hypertensive heart disease with heart failure (principal); I50.9 Heart failure, unspecified; I45.10 Unspecified right bundle-branch block; E78.5 Hyperlipidemia, unspecified; I10 Essential (primary) hypertension; M19.90 Unspecified osteoarthritis, unspecified site; F17.210 Nicotine dependence, cigarettes, uncomplicated; E11.65 Type 2 diabetes mellitus with hyperglycemia; R79.89 Other specified abnormal findings of blood chemistry; I34.0 Nonrheumatic mitral (valve) insufficiency; R59.0 Localized enlarged lymph nodes; E66.9 Obesity, unspecified; Z79.899 Other long term (current) drug therapy; Z79.4 Long term (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; Z79.82 Long term (current) use of aspirin
CPT/HCPCS: 36415; 71045; 71275; 80048; 80053; 80061; 82044; 82962; 83036; 83735; 83880; 84484; 85025; 85379; 86140; 93005; 93306; 94640; 94760; 96374; 97161; 97165; 99285; A9270; J1815; J1940; J7030; J7050; Q9967

== ENCOUNTER 2018-06-24 09:54 | Emergency (ER) | payer OTHER ==
[2018-06-24 10:03] VITALS: BP 147/76
[2018-06-24] MEDS ORDERED: Sodium Chloride 0.9% 10 ML Syringe FLUSH PRN (10:05)
[2018-06-24] MEDS ORDERED: methylPREDNISolone Sodium Succinate 125 MG/2 ML SDV IVPUSH ONE (10:34)
[2018-06-24] MEDS ORDERED: Albuterol/Ipratropium 3.0-0.5 MG/3 ML Neb Soln NEB ONE (10:34)
[2018-06-24] MEDS ORDERED: Doxycycline 100 MG Cap PO ONE (10:34)
[2018-06-24] MEDS ORDERED: Furosemide 40 MG/4 ML VIAL IVPUSH ONE (10:34)
--- NOTE | 2018-06-24 10:39 | EDM.PDOC ---
ED HPI GENERAL MEDICAL PROBLEM - General Chief Complaint: Respiratory Problem Stated Complaint: SOB Time Seen by Provider: 06/24/18 10:06 Source of Information: Reports: Patient History Limitations: Reports: No Limitations - History of Present Illness INITIAL COMMENTS - FREE TEXT/NARRATIVE: 63-year-old male with a history of long-standing tobacco abuse, admission about 6 months ago for pulmonary edema/heart failure, comes in with shortness of breath for one to 2 days. He has a chronic cough, it's been a little bit worse for the last couple of days. No fever. He's felt increasingly short of breath at rest and with exertion. He is unable to lay flat due to shortness of breath. Feels like he just can't catch his breath. He is not on home oxygen and does not have home inhaled medications. He is not currently on a diuretic. He has not seen a doctor since his admission 7 months ago. He has been noncompliant to some degree with his blood pressure medication, states he takes it when he remembers. Continues to smoke cigarettes, down to 3 or 4 per day. No fever. He does feel like he's had increased swelling in his bilateral lower extremities as well. No chest pain. Right Knee Pain Score (Numeric/FACES): 8 - Related Data Allergies Allergy/AdvReac Type Severity Reaction Status Date / Time No Known Allergies Allergy Verified 06/24/18 10:04 Home Meds: Home Meds Carvedilol 25 mg PO BID 10/17/14 [History] Lisinopril 10 mg PO DAILY 10/17/14 [History] amLODIPine Besylate [Amlodipine Besylate] 10 mg PO DAILY 10/17/14 [History] Cyclobenzaprine [Flexeril] 5 - 10 mg PO Q8H PRN 12/26/14 [History] Aspirin 81 mg PO DAILY #30 tab.chew 11/01/17 [Rx] Albuterol [Proventil HFA] 1 puff INH QID PRN #1 inhaler 06/24/18 [Rx] Doxycycline [Vibramycin] 100 mg PO BID #20 cap 06/24/18 [Rx] Furosemide [Lasix] 20 mg PO DAILY #30 tab 06/24/18 [Rx] Insulin Aspart [NovoLOG] See Protocol SUBCUT TID 06/24/18 [History] Insulin Glarg,Human.Rec.Analog [Lantus Solostar] 50 unit SUBCUT DAILY 06/24/18 [ History] atorvaSTATin [Lipitor] 20 mg PO BEDTIME 06/24/18 [History] predniSONE [Prednisone] 50 mg PO DAILY #4 tablet 06/24/18 [Rx] Past Medical History HEENT History: Reports: Impaired Vision Cardiovascular History: Reports: High Cholesterol, Hypertension, Other (See Below) Other Cardiovascular History: congenital heart disease Respiratory History: Reports: Pneumonia, Recurrent Musculoskeletal History: Reports: Arthritis Psychiatric History: Reports: None Endocrine/Metabolic History: Reports: Diabetes, Type II - Infectious Disease History Infectious Disease History: Reports: Chicken Pox, Measles, Mumps - Past Surgical History HEENT Surgical History: Reports: Oral Surgery Other Endocrine Surgeries/Procedures: Insulin dependent. Musculoskeletal Surgical History: Reports: Knee Replacement Social & Family History - Family History Family Medical History: Noncontributory Cardiac: Reports: CAD, Hypertension Endocrine/Metabolic: Reports: Diabetes, type II Oncologic: Reports: Liver, Other (See Below) Other Oncologic Family History: stomach - Tobacco Use Smoking Status *Q: Current Every Day Smoker Years of Tobacco use: 40 Packs/Tins Daily: 1 - Caffeine Use Caffeine Use: Reports: None Caffeine Use Comment: occassionally - Recreational Drug Use Recreational Drug Use: No - Living Situation & Occupation Living situation: Reports: Single, Alone Occupation: Unemployed ED ROS GENERAL - Review of Systems Review Of Systems: See Below Constitutional: Reports: Malaise. Denies: Fever HEENT: Reports: No Symptoms Respiratory: Reports: Shortness of Breath, Cough Cardiovascular: Reports: Dyspnea on Exertion, Edema. Denies: Chest Pain Endocrine: Reports: Fatigue GI/Abdominal: Denies: Abdominal Pain : Reports: No Symptoms Musculoskeletal: Reports: No Symptoms Skin: Reports: No Symptoms Neurological: Reports: No Symptoms Psychiatric: Reports: No Symptoms ED EXAM, GENERAL - Physical Exam Exam: See Below Exam Limited By: No Limitations General Appearance: Alert, WD/WN, No Apparent Distress Eye Exam: Bilateral Eye: Normal Inspection Ears: Normal External Exam Nose: Normal Inspection Throat/Mouth: Normal Inspection, Normal Oropharynx, Normal Voice, No Airway Compromise Head: Atraumatic, Normocephalic Neck: Normal Inspection, Supple, Non-Tender, Full Range of Motion Respiratory/Chest: Prolonged Expiration, Other (Bilateral rales and wheezes, mild tachypnea, no accessory muscle use) Cardiovascular: Regular Rate, Rhythm, Tachycardia, Other (One plus bilateral lower extremity pitting edema up to the knees) GI/Abdominal: Soft, Non-Tender, No Distention. No: Rebound Back Exam: Normal Inspection Extremities: Pedal Edema Neurological: Alert, Oriented, Normal Cognition, No Motor/Sensory Deficits Psychiatric: Normal Affect, Normal Mood Skin Exam: Warm, Dry, Intact, Normal Color, No Rash Course - Vital Signs Last Recorded V/S: Last Vital Signs Temp 36.1 C 06/24/18 10:00 Pulse 107 H 06/24/18 10:00 Resp 22 H 06/24/18 10:00 BP 147/76 H 06/24/18 10:00 Pulse Ox 93 L 06/24/18 10:34 - Orders/Labs/Meds Orders: Active Orders 24 hr Category Date Time Status EKG 12 Lead [EKG Documentation Completion] [RC] STAT Care 06/24/18 10:05 Active Peripheral IV Care [RC] . DIRECTED Care 06/24/18 10:05 Active Peripheral IV Care [RC] . DIRECTED Care 06/24/18 10:05 Active RT Aerosol Therapy [RC] ASDIRECTED Care 06/24/18 10:34 Active Sodium Chloride 0.9% [Saline Flush] Med 06/24/18 10:05 Active 10 ml FLUSH ASDIRECTED PRN Peripheral IV Insertion Adult [OM.PC] Routine Oth 06/24/18 10:05 Ordered Medication Orders Sodium Chloride (Saline Flush) 10 ml FLUSH ASDIRECTED PRN PRN Reason: Keep Vein Open Last Admin: 06/24/18 10:17 Dose: 10 ml Labs: Laboratory Tests 06/24/18 06/24/18 06/24/18 Range/Units 10:00 10:00 10:00 WBC 8.16 (4.23-9.07) K/mm3 RBC 5.25 (4.63-6.08) M/mm3 Hgb 14.5 (13.7-17.5) gm/L Hct 45.5 (40.1-51.0) % MCV 86.7 (79.0-92.2) fl MCH 27.6 (25.7-32.2) pg MCHC 31.9 L (32.2-35.5) g/dl RDW Std Deviation 44.5 H (35.1-43.9) fL Plt Count 275 (163-337) K/mm3 MPV 11.4 (9.4-12.3) fl Neut % (Auto) 65.2 (34.0-67.9) % Lymph % (Auto) 21.6 L (21.8-53.1) % [place] % (Auto) 10.0 (5.3-12.2) % Eos % (Auto) 2.9 (0.8-7.0) Baso % (Auto) 0.1 (0.1-1.2) % Neut # (Auto) 5.31 (1.78-5.38) K/mm3 Lymph # (Auto) 1.76 (1.32-3.57) K/mm3 [place] # (Auto) 0.82 (0.30-0.82) K/mm3 Eos # (Auto) 0.24 (0.04-0.54) K/mm3 Baso # (Auto) 0.01 (0.01-0.08) K/mm3 Sodium 138 (136-145) mEq/L Potassium 4.6 (3.5-5.1) mEq/L Chloride 104 (98-107) mEq/L Carbon Dioxide 25 (21-32) mEq/L Anion Gap 13.6 (5-15) BUN 17 (7-18) mg/dL Creatinine 1.0 (0.7-1.3) mg/dL Est Cr Clr Drug Dosing 80.10 mL/min Estimated GFR (MDRD) > 60 (>60) mL/min BUN/Creatinine Ratio 17.0 (14-18) Glucose 291 H (80-115) mg/dL Calcium 8.9 (8.5-10.1) mg/dL Magnesium 1.9 (1.8-2.4) mg/dl Total Bilirubin 0.4 (0.2-1.0) mg/dL AST 41 H (15-37) U/L ALT 76 H (16-63) U/L Alkaline Phosphatase 114 (46-116) U/L Troponin I 0.039 (0.00-0.056) ng/mL NT-Pro-B Natriuret Pep 909 H (0-125) pg/mL Total Protein 7.4 (6.4-8.2) g/dl Albumin 3.1 L (3.4-5.0) g/dl Globulin 4.3 gm/dL Albumin/Globulin Ratio 0.7 L (1-2) Meds: Medications Generic Name Dose Route Start Last Admin Trade Name Suad PRN Reason Stop Dose Admin Sodium Chloride 10 ml 06/24/18 10:05 06/24/18 10:17 Saline Flush FLUSH 10 ml ASDIRECTED PRN Administration Keep Vein Open Discontinued Medications Generic Name Dose Route Start Last Admin Trade Name Suad PRN Reason Stop Dose Admin Albuterol/Ipratropium 3 ml 06/24/18 10:34 06/24/18 10:45 Duoneb 3.0-0.5 Mg/3 Ml NEB 06/24/18 10:35 3 ml ONETIME ONE Administration Doxycycline Hyclate 100 mg 06/24/18 10:34 06/24/18 10:41 Vibramycin PO 06/24/18 10:35 100 mg ONETIME ONE Administration Furosemide 40 mg 06/24/18 10:34 06/24/18 10:41 Lasix IVPUSH 06/24/18 10:35 40 mg NOW ONE Administration Methylprednisolone Sodium Succinate 125 mg 06/24/18 10:34 06/24/18 10:41 Solu-Medrol IVPUSH 06/24/18 10:35 125 mg ONETIME ONE Administration - Re-Assessments/Exams Free Text/Narrative Re-Assessment/Exam: 06/24/18 10:39 EKG shows sinus tachycardia, RBBB present, which was present on prior EKG. 06/24/18 11:28 Feeling better after neb and other ED meds. Not hypoxic. Breathing more comfortably. Has few scattered rales but wheezing gone. Prefers to be discharged. I suspect COPD exacerbation + component of CHF. He needs a PCP. [facility] Will rx albuterol, steroid, doxy for COPD exacerbation and restart lasix. Discussed ED return precautions. Labs show normal cbc/chem significant for hyperglycemia (he's on insulin) and neg trop. Departure - Departure Time of Disposition: 11:29 Disposition: Home, Self-Care 01 Clinical Impression: COPD exacerbation CHF exacerbation Qualifiers: Heart failure type: unspecified Qualified Code(s): I50.9 - Heart failure, unspecified - Discharge Information Prescriptions: Albuterol [Proventil HFA] 1 puff INH QID PRN #1 inhaler PRN Reason: shortness of breath/wheezing Doxycycline [Vibramycin] 100 mg PO BID #20 cap Furosemide [Lasix] 20 mg PO DAILY #30 tab predniSONE [Prednisone] 50 mg PO DAILY #4 tablet Referrals: PCP,None [Primary Care Provider] - Forms: ED Department Discharge Additional Instructions: 1. Take prednisone as prescribed to decrease lung inflammation. First dose tomorrow. 2. Take doxycycline as prescribed for bronchitis. First dose this evening. 3. Use albuterol inhaler as needed for wheezing or shortness of breath 4. Take furosemide (lasix) as prescribed to reduce fluid on the lungs. First dose tomorrow. 5. [facility] 6. Return to the ED as needed for difficulty breathing, chest pain, fever, severe pain, or any other concerning symptoms - My Orders Last 24 Hours: My Active Orders 06/24/18 10:05 EKG 12 Lead [EKG Documentation Completion] [RC] STAT Peripheral IV Care [RC] . DIRECTED Peripheral IV Care [RC] . DIRECTED Sodium Chloride 0.9% [Saline Flush] 10 ml FLUSH ASDIRECTED PRN Peripheral IV Insertion Adult [OM.PC] Routine 06/24/18 10:34 RT Aerosol Therapy [RC] ASDIRECTED - Assessment/Plan Last 24 Hours: My Active Orders 06/24/18 10:05 EKG 12 Lead [EKG Documentation Completion] [RC] STAT Peripheral IV Care [RC] . DIRECTED Peripheral IV Care [RC] . DIRECTED Sodium Chloride 0.9% [Saline Flush] 10 ml FLUSH ASDIRECTED PRN Peripheral IV Insertion Adult [OM.PC] Routine 06/24/18 10:34 RT Aerosol Therapy [RC] ASDIRECTED
--- NOTE | 2018-06-24 11:13 | CR ---
Chest: Portable view of the chest was obtained. Comparison: Prior chest CT of 10/31/17 and chest x-ray of 10/31/17. Heart is enlarged. Pulmonary vessels are increased which appear fairly stable from previous exam. No acute parenchymal change is otherwise seen. Bony structures are unremarkable. Impression: 1. Cardiomegaly and mild stable pulmonary vascular congestion. Diagnostic code #3
== END 2018-06-24 11:45 | disposition home or self-care (01) ==
LOC: JD.ED 09:54
DX: J44.1 Chronic obstructive pulmonary disease with (acute) exacerbation (principal); I11.0 Hypertensive heart disease with heart failure; I50.9 Heart failure, unspecified; E78.00 Pure hypercholesterolemia, unspecified; Z79.82 Long term (current) use of aspirin; Z79.4 Long term (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; Z79.899 Other long term (current) drug therapy
CPT/HCPCS: 36415; 71045; 80053; 83735; 83880; 84484; 85025; 93005; 94640; 96374; 96375; 99285; A9270; J1940; J2930; 93010; 99284; J7620-GY

== ENCOUNTER 2018-07-01 10:46 | Emergency (ER) | payer MEDICAID, OTHER ==
[2018-07-01] MEDS ORDERED: Albuterol/Ipratropium 3.0-0.5 MG/3 ML Neb Soln NEB ONE (11:19)
[2018-07-01] MEDS ORDERED: methylPREDNISolone Sodium Succinate 125 MG/2 ML SDV IVPUSH ONE (11:19)
--- NOTE | 2018-07-01 11:19 | EDM.PDOC ---
ED HPI GENERAL MEDICAL PROBLEM - General Chief Complaint: Respiratory Problem Stated Complaint: TROUBLE BREATHING Time Seen by Provider: 07/01/18 11:10 - History of Present Illness INITIAL COMMENTS - FREE TEXT/NARRATIVE: 63-year-old male returns emergency room with worsening shortness of breath. patient was seen here week ago diagnosed with bronchitis and treated for reactive airway disease. He received a 5 day course of her steroids was started on an inhaler and was treated with doxycycline which he is still taking. He stopped the steroids on Sunday. He states he really never had good breathing after leaving but things certainly did worsen over the weekend. She denies fevers or chills. The patient has a long history of noncompliance apparently he' s been taking his medications as directed since his last visit. He is rehabilitating from a knee surgery that went bad complicated with infections he' s had 3 surgeries with this. He also has some intermittent abdominal discomfort related to an umbilical hernia that he's had for a while. He is not exactly sure he's been aware of it for the last several months. - Related Data Allergies Allergy/AdvReac Type Severity Reaction Status Date / Time No Known Allergies Allergy Verified 07/01/18 11:10 Home Meds: Home Meds Carvedilol 25 mg PO BID 10/17/14 [History] Lisinopril 10 mg PO DAILY 10/17/14 [History] amLODIPine Besylate [Amlodipine Besylate] 10 mg PO DAILY 10/17/14 [History] Cyclobenzaprine [Flexeril] 5 - 10 mg PO Q8H PRN 12/26/14 [History] Aspirin 81 mg PO DAILY #30 tab.chew 11/01/17 [Rx] Albuterol [Proventil HFA] 1 puff INH QID PRN #1 inhaler 06/24/18 [Rx] Doxycycline [Vibramycin] 100 mg PO BID #20 cap 06/24/18 [Rx] Furosemide [Lasix] 20 mg PO DAILY #30 tab 06/24/18 [Rx] Insulin Aspart [NovoLOG] See Protocol SUBCUT TID 06/24/18 [History] Insulin Glarg,Human.Rec.Analog [Lantus Solostar] 50 unit SUBCUT DAILY 06/24/18 [ History] atorvaSTATin [Lipitor] 20 mg PO BEDTIME 06/24/18 [History] Albuterol [Ventolin HFA] 2 puff INH Q4H PRN #1 puff 07/01/18 [Rx] Fluticasone Propionate [Flovent HFA 110 MCG] 1 puff INH BID #1 puff 07/01/18 [Rx ] Furosemide [Lasix] 20 mg PO DAILY #30 tab 07/01/18 [Rx] predniSONE 20 mg PO WITHBREAKFAST #28 tab 07/01/18 [Rx] Past Medical History HEENT History: Reports: Impaired Vision Cardiovascular History: Reports: High Cholesterol, Hypertension, Other (See Below) Other Cardiovascular History: congenital heart disease Respiratory History: Reports: Pneumonia, Recurrent Musculoskeletal History: Reports: Arthritis Psychiatric History: Reports: None Endocrine/Metabolic History: Reports: Diabetes, Type II - Infectious Disease History Infectious Disease History: Reports: Chicken Pox, Measles, Mumps - Past Surgical History HEENT Surgical History: Reports: Oral Surgery Other Endocrine Surgeries/Procedures: Insulin dependent. Musculoskeletal Surgical History: Reports: Knee Replacement Social & Family History - Family History Family Medical History: Noncontributory Cardiac: Reports: CAD, Hypertension Endocrine/Metabolic: Reports: Diabetes, type II Oncologic: Reports: Liver, Other (See Below) Other Oncologic Family History: stomach - Caffeine Use Caffeine Use: Reports: None Caffeine Use Comment: occassionally - Living Situation & Occupation Living situation: Reports: Single, Alone Occupation: Unemployed ED ROS GENERAL - Review of Systems Review Of Systems: See Below Constitutional: Reports: No Symptoms HEENT: Reports: No Symptoms Respiratory: Reports: Shortness of Breath, Wheezing, Cough, Sputum. Denies: Pleuritic Chest Pain, Hemoptysis Cardiovascular: Reports: No Symptoms GI/Abdominal: Reports: Abdominal Pain (In the area of the umbilicus). Denies: Constipation, Diarrhea, Nausea, Vomiting : Reports: No Symptoms Musculoskeletal: Reports: Leg Pain Skin: Reports: No Symptoms Neurological: Denies: Confusion, Dizziness, Headache ED EXAM, GENERAL - Physical Exam Exam: See Below Exam Limited By: No Limitations General Appearance: Alert, No Apparent Distress, Other (O2 saturations 94% on supplemental oxygen, initial examination he was 83% on room air when he was first brought back before the oxygen therapy) Eye Exam: Bilateral Eye: Normal Inspection Ears: Normal External Exam, Normal Canal, Hearing Grossly Normal, Normal TMs Nose: Normal Inspection, Normal Mucosa, No Blood Throat/Mouth: Normal Inspection, Normal Lips, Normal Gums, Normal Oropharynx, Normal Voice, No Airway Compromise Head: Atraumatic, Normocephalic Neck: Normal Inspection, Supple, Non-Tender, Full Range of Motion. No: Lymphadenopathy (L), Lymphadenopathy (R) Respiratory/Chest: No Accessory Muscle Use, Decreased Breath Sounds, Wheezing. No: Crackles, Rales, Rhonchi Cardiovascular: Regular Rate, Rhythm, No Edema, No Murmur GI/Abdominal: Normal Bowel Sounds, Soft, Non-Tender, Tender (Only around the area of the umbilical hernia), Other (Obese has a umbilical hernia that is reducible). No: Distended, Guarding, Rigid, Rebound Neurological: Alert, Normal Cognition Skin Exam: Warm, Dry, Intact EKG INTERPRETATION EKG Date: 07/01/18 Rhythm: NSR Rate (Beats/Min): 82 [place]: LAD-Left [place] Deviation P-Wave: Present QRS: RBBB ST-T: Other QT: Prolonged (Borderline prolonged QTC) Comparison: No Change (No change from 06-24-18) EKG Interpretation Comments: Abnormal Course - Vital Signs Last Recorded V/S: Last Vital Signs Temp 36.8 C 07/01/18 11:05 Pulse 88 07/01/18 11:05 Resp 18 07/01/18 11:05 BP 106/46 L 07/01/18 11:05 Pulse Ox 91 L 07/01/18 11:42 - Orders/Labs/Meds Orders: Active Orders 24 hr Category Date Time Status EKG Documentation Completion [RC] STAT Care 07/01/18 11:21 Active RT Aerosol Therapy [RC] ASDIRECTED Care 07/01/18 11:20 Active Labs: Laboratory Tests 07/01/18 07/01/18 07/01/18 Range/Units 11:35 11:35 11:35 WBC 7.74 (4.23-9.07) K/mm3 RBC 5.12 (4.63-6.08) M/mm3 Hgb 14.2 (13.7-17.5) gm/L Hct 43.8 (40.1-51.0) % MCV 85.5 (79.0-92.2) fl MCH 27.7 (25.7-32.2) pg MCHC 32.4 (32.2-35.5) g/dl RDW Std Deviation 42.9 (35.1-43.9) fL Plt Count 205 (163-337) K/mm3 MPV 11.7 (9.4-12.3) fl Neutrophils % (Manual) 63 H (40-60) % Band Neutrophils % 3 (0-10) % Lymphocytes % (Manual) 21 (20-40) % Atypical Lymphs % 0 % Monocytes % (Manual) 12 H (2-10) % Eosinophils % (Manual) 1 (0.8-7.0) % Basophils % (Manual) 0 L (0.2-1.2) Platelet Estimate Adequate RBC Morph Comment Normal Puncture Site ABG pH (7.35-7.45) ABG pCO2 (35.0-45.0) mmHg ABG pO2 (80.0-100.0) mmHg ABG HCO3 (22.0-26.0) meq/L ABG O2 Saturation (96.0-97.0) % ABG Base Excess (-2-2.0) [place] Test A-a Gradient mmHg O2 Delivery Device Oxygen Flow Rate FiO2 (21.00-100.00) % Sodium 135 L (136-145) mEq/L Potassium 4.0 (3.5-5.1) mEq/L Chloride 100 (98-107) mEq/L Carbon Dioxide 26 (21-32) mEq/L Anion Gap 13.0 (5-15) BUN 19 H (7-18) mg/dL Creatinine 0.9 (0.7-1.3) mg/dL Est Cr Clr Drug Dosing 91.80 mL/min Estimated GFR (MDRD) > 60 (>60) mL/min BUN/Creatinine Ratio 21.1 H (14-18) Glucose 295 H (80-115) mg/dL Calcium 8.3 L (8.5-10.1) mg/dL Total Bilirubin 0.5 (0.2-1.0) mg/dL AST 45 H (15-37) U/L ALT 86 H (16-63) U/L Alkaline Phosphatase 101 (46-116) U/L Troponin I < 0.017 (0.00-0.056) ng/mL NT-Pro-B Natriuret Pep 1253 H (0-125) pg/mL Total Protein 6.8 (6.4-8.2) g/dl Albumin 2.7 L (3.4-5.0) g/dl Globulin 4.1 gm/dL Albumin/Globulin Ratio 0.7 L (1-2) 07/01/18 07/01/18 Range/Units 11:47 15:26 WBC (4.23-9.07) K/mm3 RBC (4.63-6.08) M/mm3 Hgb (13.7-17.5) gm/L Hct (40.1-51.0) % MCV (79.0-92.2) fl MCH (25.7-32.2) pg MCHC (32.2-35.5) g/dl RDW Std Deviation (35.1-43.9) fL Plt Count (163-337) K/mm3 MPV (9.4-12.3) fl Neutrophils % (Manual) (40-60) % Band Neutrophils % (0-10) % Lymphocytes % (Manual) (20-40) % Atypical Lymphs % % Monocytes % (Manual) (2-10) % Eosinophils % (Manual) (0.8-7.0) % Basophils % (Manual) (0.2-1.2) Platelet Estimate RBC Morph Comment Puncture Site Lt radial ABG pH 7.41 (7.35-7.45) ABG pCO2 42.0 (35.0-45.0) mmHg ABG pO2 56.0 L (80.0-100.0) mmHg ABG HCO3 26.1 H (22.0-26.0) meq/L ABG O2 Saturation 91.7 L (96.0-97.0) % ABG Base Excess 1.7 (-2-2.0) [place] Test Positive A-a Gradient 71 mmHg O2 Delivery Device Nasal cannula Oxygen Flow Rate 2.0 FiO2 28.00 (21.00-100.00) % Sodium (136-145) mEq/L Potassium (3.5-5.1) mEq/L Chloride (98-107) mEq/L Carbon Dioxide (21-32) mEq/L Anion Gap (5-15) BUN (7-18) mg/dL Creatinine (0.7-1.3) mg/dL Est Cr Clr Drug Dosing mL/min Estimated GFR (MDRD) (>60) mL/min BUN/Creatinine Ratio (14-18) Glucose 496 H (80-115) mg/dL Calcium (8.5-10.1) mg/dL Total Bilirubin (0.2-1.0) mg/dL AST (15-37) U/L ALT (16-63) U/L Alkaline Phosphatase (46-116) U/L Troponin I (0.00-0.056) ng/mL NT-Pro-B Natriuret Pep (0-125) pg/mL Total Protein (6.4-8.2) g/dl Albumin (3.4-5.0) g/dl Globulin gm/dL Albumin/Globulin Ratio (1-2) Meds: Medications Discontinued Medications Generic Name Dose Route Start Last Admin Trade Name Freq PRN Reason Stop Dose Admin Albuterol/Ipratropium 3 ml 07/01/18 11:19 07/01/18 11:42 Duoneb 3.0-0.5 Mg/3 Ml NEB 07/01/18 11:20 3 ml ONETIME ONE Administration Furosemide 40 mg 07/01/18 12:36 07/01/18 12:57 Lasix IVPUSH 07/01/18 12:37 40 mg ONETIME ONE Administration Insulin Human Lispro 5 unit 07/01/18 12:44 07/01/18 13:21 Humalog SUBCUT 07/01/18 12:45 5 units ONETIME ONE Administration Insulin Human Regular 5 unit 07/01/18 16:00 Humulin R SUBCUT BIDAC RISHI Methylprednisolone Sodium Succinate 125 mg 07/01/18 11:19 07/01/18 11:54 Solu-Medrol IVPUSH 07/01/18 11:20 125 mg ONETIME ONE Administration Potassium Chloride 20 meq 07/01/18 12:36 07/01/18 12:57 Klor-Con M20 PO 07/01/18 12:37 20 meq ONETIME ONE Administration - Re-Assessments/Exams Free Text/Narrative Re-Assessment/Exam: 07/01/18 13:18 A significant improvement from that breathing treatment did review his chest x- ray which to me looks like it has slightly increased vascular congestion will give an extra dose of Lasix and see if this helps him as well. Awaiting official read on the chest x-ray. 07/01/18 16:14 The patient is doing much better he's had a good diuretic response nebulizer treatment has helped. He still remains mildly hypoxic on room air 88-90% patient declines admission but agrees to follow-up in the clinic soon as he can. The patient will take 40 mg of Lasix daily increased from his usual dose of 20 mg daily I've stressed the importance of him having close clinical follow- up at the end of this week or the first part of next week to monitor his potassium. The patient will be given a refill of his albuterol MDI he'll be started on Atrovent inhaler 2 puffs 4 times a day a Flovent inhaler 55 g 2 puffs twice a day and he'll be on prednisone taper. He is advised to finish his doxycycline. Blood sugars quite elevated here in the emergency room he declines is given him another shot he will dose himself when he gets home from his sliding scale. Departure - Departure Time of Disposition: 16:16 Disposition: Home, Self-Care 01 Clinical Impression: COPD exacerbation, Hypoxia Congestive heart failure (CHF) Qualifiers: Heart failure type: unspecified Heart failure chronicity: unspecified Qualified Code(s): I50.9 - Heart failure, unspecified - Discharge Information Prescriptions: Albuterol [Ventolin HFA] 2 puff INH Q4H PRN #1 puff PRN Reason: Dyspnea Fluticasone Propionate [Flovent HFA 110 MCG] 1 puff INH BID #1 puff Furosemide [Lasix] 20 mg PO DAILY #30 tab predniSONE 20 mg PO WITHBREAKFAST #28 tab Referrals: PCP,Unknown [Ordering Only Provider] - Forms: ED Department Discharge Additional Instructions: Return to the emergency room with any questions problems worsening symptoms. Follow-up with your doctor at the end of this week or first part of next week. It is essential that you have follow-up for your change in diuretic therapy a potassium level needs to be monitored closely. You have been started on Atrovent to help your breathing use this 2 puffs 4 times daily. I've given you a new refill of your albuterol 2 puffs every 4 hours as needed. You have be started on Flovent this is a topical steroid that you breathing and 1 puff twice a day I've given you a prescription for Lasix 20 mg as you'll be taking to appear Lasix a day. You have been given prednisone take this as a taper. Finish your doxycycline - My Orders Last 24 Hours: My Active Orders 07/01/18 11:20 RT Aerosol Therapy [RC] ASDIRECTED 07/01/18 11:21 EKG Documentation Completion [RC] STAT - Assessment/Plan Last 24 Hours: My Active Orders 07/01/18 11:20 RT Aerosol Therapy [RC] ASDIRECTED 07/01/18 11:21 EKG Documentation Completion [RC] STAT
[2018-07-01] MEDS ORDERED: Furosemide 20 MG/2 ML VIAL IVPUSH ONE (12:36)
[2018-07-01] MEDS ORDERED: Potassium Chloride 20 MEQ Tab.ER PO ONE (12:36)
[2018-07-01] MEDS ORDERED: Insulin Lispro 100 UNIT/ML 10 ML VIAL SUBCUT ONE (12:44)
--- NOTE | 2018-07-01 14:05 | CR ---
Chest: Two views of the chest were obtained. Comparison: Prior chest x-ray of 06/24/18. Increasing lung markings are seen from prior study most likely due to pulmonary vascular congestion. Heart is slightly enlarged. Bony structures show slight degenerative change within the spine. Mild compression deformities are seen which appear to be old. Impression: 1. Findings as noted above most likely due to CHF. Diagnostic code #3
[2018-07-01] MEDS ORDERED: Insulin Regular, Human 100 Units/ML 3 ML Vial SUBCUT SCH (16:00)
[2018-07-01 16:56] VITALS: BP 126/86
== END 2018-07-01 16:45 | disposition home or self-care (01) ==
LOC: JD.ED 10:46
DX: J44.1 Chronic obstructive pulmonary disease with (acute) exacerbation (principal); I11.0 Hypertensive heart disease with heart failure; I50.9 Heart failure, unspecified; R09.02 Hypoxemia; E78.00 Pure hypercholesterolemia, unspecified; F17.210 Nicotine dependence, cigarettes, uncomplicated; E11.9 Type 2 diabetes mellitus without complications; Z79.899 Other long term (current) drug therapy; Z79.4 Long term (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; Z79.82 Long term (current) use of aspirin
CPT/HCPCS: 36415; 36600; 71046; 80053; 82803; 82947; 83880; 84484; 85007; 85027; 93005; 94640; 96372; 96374; 96375; 99285; A9270; J2930; J7620-GY

== ENCOUNTER 2019-01-05 17:42 | Inpatient (IN) | payer MEDICAID, OTHER ==
--- NOTE | 2019-01-05 18:48 | EDM.PDOC ---
ED HPI GENERAL MEDICAL PROBLEM - General Chief Complaint: Respiratory Problem Stated Complaint: SOB Time Seen by Provider: 01/05/19 18:48 Source of Information: Reports: Patient History Limitations: Reports: No Limitations - History of Present Illness INITIAL COMMENTS - FREE TEXT/NARRATIVE: 63-year-old male presents to the ED with gradually worsening dyspnea. He's been markedly worse over the last 3 days. He's been gradually deteriorating as far as respiratory function for about a year. Is undergoing pulmonology investigations this time. Currently using a hand-held albuterol nebulizer without any relief. He is on home oxygen therapy usually at 3 L/m but hadn't as high as 5 L/m today but did not get any relief. Continues to have air hunger. No audible wheezing. No cough or sputum production no fever or chills. He is down to 3 cigarettes a day. Has been smoking for at least 45 pack years. Denies any chest pain. Onset: Gradual (Gradually worsening dyspnea over the last year.), Other (Worse dyspnea over the last 3-4 days.) Duration: Chronic, Getting Worse, Waxing/Waning Location: Reports: Chest (Severe dyspnea.) Quality: Reports: Other Severity: Severe Improves with: Reports: None (Nebulizer treatments don't seem to help.) Worsens with: Reports: Movement (Activity.). Denies: None Context: Reports: Other (Gradually worsening dyspnea over the last year. These currently disabled because of this disease.). Denies: Activity, Exercise, Lifting, Sick Contact, Trauma Associated Symptoms: Reports: Loss of Appetite, Malaise, Shortness of Breath, Weakness (Diffuse lower abdominal pain), Other. Denies: Confusion, Chest Pain, Cough, cough w sputum, Diaphoresis, Fever/Chills, Headaches, Nausea/Vomiting, Rash, Seizure, Syncope - Related Data Allergies Allergy/AdvReac Type Severity Reaction Status Date / Time No Known Allergies Allergy Verified 07/01/18 11:10 Home Meds: Home Meds Carvedilol 25 mg PO BID 10/17/14 [History] Lisinopril 10 mg PO DAILY 10/17/14 [History] amLODIPine Besylate [Amlodipine Besylate] 10 mg PO DAILY 10/17/14 [History] Cyclobenzaprine [Flexeril] 5 - 10 mg PO Q8H PRN 12/26/14 [History] Aspirin 81 mg PO DAILY #30 tab.chew 11/01/17 [Rx] Albuterol [Proventil HFA] 1 puff INH QID PRN #1 inhaler 06/24/18 [Rx] Insulin Aspart [NovoLOG] See Protocol SUBCUT TID 06/24/18 [History] Insulin Glarg,Human.Rec.Analog [Lantus Solostar] 50 unit SUBCUT DAILY 06/24/18 [ History] atorvaSTATin [Lipitor] 20 mg PO BEDTIME 06/24/18 [History] Albuterol [Ventolin HFA] 2 puff INH Q4H PRN #1 puff 07/01/18 [Rx] Fluticasone Propionate [Flovent HFA 110 MCG] 1 puff INH BID #1 puff 07/01/18 [Rx ] Hydrocodone/Acetaminophen [Hydrocodon-Acetaminophn 10-325] 10 - 325 tab .ROUTE Q4HR PRN 01/05/19 [History] metFORMIN [Glucophage] 500 mg PO BID 01/05/19 [History] Past Medical History HEENT History: Reports: Impaired Vision Cardiovascular History: Reports: High Cholesterol, Hypertension, Other (See Below) Other Cardiovascular History: congenital heart disease Respiratory History: Reports: COPD, Pneumonia, Recurrent Musculoskeletal History: Reports: Arthritis Psychiatric History: Reports: None Endocrine/Metabolic History: Reports: Diabetes, Type II (Controlled with both insulin and metformin and diet.) - Infectious Disease History Infectious Disease History: Reports: Chicken Pox, Measles, Mumps - Past Surgical History HEENT Surgical History: Reports: Oral Surgery Other Endocrine Surgeries/Procedures: Insulin dependent. Musculoskeletal Surgical History: Reports: Knee Replacement Social & Family History - Family History Family Medical History: Noncontributory Cardiac: Reports: CAD, Hypertension Endocrine/Metabolic: Reports: Diabetes, type II Oncologic: Reports: Liver, Other (See Below) Other Oncologic Family History: stomach - Tobacco Use Smoking Status *Q: Current Every Day Smoker Years of Tobacco use: 40 Packs/Tins Daily: 0.2 - Caffeine Use Caffeine Use: Reports: None Caffeine Use Comment: occassionally - Recreational Drug Use Recreational Drug Use: No - Living Situation & Occupation Living situation: Reports: Single, Alone Occupation: Unemployed ED ROS GENERAL - Review of Systems Review Of Systems: See Below Constitutional: Reports: Malaise, Weakness, Fatigue, Decreased Appetite. Denies : Fever, Chills HEENT: Reports: No Symptoms Respiratory: Reports: Shortness of Breath, Wheezing. Denies: Pleuritic Chest Pain (Occasional wheezing), Cough, Sputum, Hemoptysis, Other Cardiovascular: Reports: Blood Pressure Problem, Dyspnea on Exertion. Denies: Claudication, Edema, Lightheadedness, Orthopnea (Chronic hypertension), Palpitations Endocrine: Reports: Fatigue GI/Abdominal: Reports: Abdominal Pain (Diffuse intermittent lower abdominal pain.) : Reports: No Symptoms Musculoskeletal: Reports: Back Pain, Joint Pain Skin: Reports: No Symptoms (Knees hips neck at times) Neurological: Reports: No Symptoms Psychiatric: Reports: No Symptoms Hematologic/Lymphatic: Reports: No Symptoms Immunologic: Reports: No Symptoms ED EXAM, GENERAL - Physical Exam Exam: See Below Exam Limited By: No Limitations General Appearance: Alert, WD/WN, Moderate Distress (Moderate respiratory distress. His tachypnea At rest at rest with respiratory 30. Sats are 90% on room air. Tachycardic at rest 1 12/m.) Eye Exam: Bilateral Eye: Normal Inspection Throat/Mouth: Other Head: Atraumatic, Normocephalic (Tongue is mildly dry and coated) Neck: Normal Inspection, Supple, Non-Tender, Full Range of Motion. No: Lymphadenopathy (L), Lymphadenopathy (R) Respiratory/Chest: Lungs Clear (Marked tachypnea 30/m at rest.), Respiratory Distress, Decreased Breath Sounds. No: Rales, Rhonchi, Wheezing (Decreased breath sounds the lower 40% of lungs posteriorly.) Cardiovascular: Regular Rate, Rhythm, No Gallop, No Murmur, Tachycardia ( Resting tachycardia 1 10/m) Peripheral Pulses: 1+: Posterior Tibial (L) (Clinically has a component of peripheral vascular disease.), Posterior Tibial (R), Dorsalis Pedis (L), Dorsalis Pedis (R) GI/Abdominal: Normal Bowel Sounds, Soft, Non-Tender, No Organomegaly, Distended (Mildly distended upper abdomen with mild tympany suggesting mild aerophagia.), Other (Has an umbilical hernia that is somewhat tender to touch. It is easily reducible.) Back Exam: Normal Inspection, Full Range of Motion. No: CVA Tenderness (L), CVA Tenderness (R) Extremities: Normal Range of Motion, Non-Tender, Pedal Edema Neurological: Alert (Trace pedal edema over ankles.), Oriented, CN II-XII Intact , Normal Cognition Psychiatric: Normal Mood, Other (Marked respiratory distress.) Skin Exam: Warm, Dry, Intact, Normal Color, No Rash (Afebrile.) EKG INTERPRETATION EKG Date: 01/06/19 Time: 04:00 Rhythm: NSR Rate (Beats/Min): 76 [place]: Other (Patient also has a right bundle branch block pattern.) P-Wave: Enlarged (Left atrial hypertrophy pattern) QRS: Other ST-T: Other (Diffuse repolarization abnormality noted V2 to V6 leads 1 and aVL. T-wave inversion in leads II, III, and F aVF nonspecific finding cannot rule out ischemia.) QT: Prolonged (Moderately prolonged.) EKG Interpretation Comments: Abnormal ECG Course - Vital Signs Last Recorded V/S: Last Vital Signs Temp 36.0 C 01/06/19 03:25 Pulse 77 01/06/19 03:25 Resp 18 01/06/19 03:25 BP 100/60 01/06/19 03:25 Pulse Ox 95 01/06/19 03:25 - Orders/Labs/Meds Orders: Active Orders 24 hr Category Date Time Status Oxygen Therapy [RC] ASDIRECTED Care 01/05/19 19:01 Active Chest 1V Frontal [CR] Stat Exams 01/05/19 19:00 Taken Sodium Chloride 0.9% [Saline Flush] Med 01/05/19 19:01 Active 10 ml FLUSH ASDIRECTED PRN cefTRIAXone [Rocephin] 2 gm Med 01/05/19 20:00 Active Sodium Chloride 0.9% [Normal Saline] 100 ml IV Q24H Peripheral IV Insertion Adult [OM.PC] Stat Oth 01/05/19 19:01 Ordered Medication Orders Hydrocodone Bitart/Acetaminophen ([place] 325-5 Mg) 2 tab PO Q4H PRN PRN Reason: Pain (moderate 4-6) Last Admin: 01/05/19 22:49 Dose: 2 tab Albuterol (Proventil Neb Soln) 2.5 mg NEB Q2H PRN PRN Reason: Shortness of Breath Albuterol/Ipratropium (Duoneb 3.0-0.5 Mg/3 Ml) 3 ml NEB Q6HRRT RISHI Last Admin: 01/06/19 03:12 Dose: 3 ml Amlodipine Besylate (Norvasc) 10 mg PO DAILY [facility] Aspirin (Halfprin) 81 mg PO DAILY [facility] Carvedilol (Coreg) 25 mg PO BIDMEALS [facility] Enoxaparin Sodium (Lovenox) 40 mg SUBCUT DAILY [facility] Furosemide (Lasix) 40 mg IVPUSH DAILY [facility] Ceftriaxone Sodium 2 gm/ (Sodium Chloride) 100 mls @ 200 mls/hr IV Q24H RISHI Last Admin: 01/05/19 20:21 Dose: 200 mls/hr Azithromycin 500 mg/ Sodium (Chloride) 250 mls @ 250 mls/hr IV Q24H RISHI Stop: 01/09/19 23:59 Insulin Glargine (Lantus) 40 unit SUBCUT DAILY [facility] Insulin Human Lispro (Humalog) 0 unit SUBCUT QIDACANDBED [facility]; Protocol Lisinopril (Prinivil) 10 mg PO DAILY [facility] Miscellaneous Information (Remove Patch) 1 ea TRDERM DAILY [facility] Mometasone Furoate (Asmanex Hfa 100mcg) 0 gm INH BID [facility] Nicotine (Habitrol) 7 mg TRDERM DAILY [facility] Ondansetron HCl (Zofran Odt) 4 mg PO Q4H PRN PRN Reason: nausea, able to take PO Simvastatin (Zocor) 20 mg PO BEDTIME [facility] Sodium Chloride (Saline Flush) 10 ml FLUSH ASDIRECTED PRN PRN Reason: Keep Vein Open Last Admin: 01/05/19 19:23 Dose: 10 ml Labs: Laboratory Tests 01/05/19 01/05/19 01/05/19 Range/Units 18:00 18:00 18:00 WBC 10.24 H (4.23-9.07) K/mm3 RBC 5.21 (4.63-6.08) M/mm3 Hgb 14.1 (13.7-17.5) gm/L Hct 44.2 (40.1-51.0) % MCV 84.8 (79.0-92.2) fl MCH 27.1 (25.7-32.2) pg MCHC 31.9 L (32.2-35.5) g/dl RDW Std Deviation 46.9 H (35.1-43.9) fL Plt Count 287 (163-337) K/mm3 MPV 12.0 (9.4-12.3) fl Neut % (Auto) 70.5 H (34.0-67.9) % Lymph % (Auto) 17.5 L (21.8-53.1) % [place] % (Auto) 9.4 (5.3-12.2) % Eos % (Auto) 2.2 (0.8-7.0) Baso % (Auto) 0.2 (0.1-1.2) % Neut # (Auto) 7.22 H (1.78-5.38) K/mm3 Lymph # (Auto) 1.79 (1.32-3.57) K/mm3 [place] # (Auto) 0.96 H (0.30-0.82) K/mm3 Eos # (Auto) 0.23 (0.04-0.54) K/mm3 Baso # (Auto) 0.02 (0.01-0.08) K/mm3 Manual Slide Review Normal smear ESR 31 H (0-15) mm/hr D-Dimer, Quantitative (0.19-0.50) mg/L Puncture Site ABG pH (7.35-7.45) ABG pCO2 (35.0-45.0) mmHg ABG pO2 (80.0-100.0) mmHg ABG HCO3 (22.0-26.0) meq/L ABG O2 Saturation (96.0-97.0) % ABG Base Excess (-2-2.0) [place] Test A-a Gradient mmHg O2 Delivery Device FiO2 (21.00-100.00) % Sodium 138 (136-145) mEq/L Potassium 4.3 (3.5-5.1) mEq/L Chloride 101 (98-107) mEq/L Carbon Dioxide 29 (21-32) mEq/L Anion Gap 12.3 (5-15) BUN 6 L (7-18) mg/dL Creatinine 0.9 (0.7-1.3) mg/dL Est Cr Clr Drug Dosing 89.00 mL/min Estimated GFR (MDRD) > 60 (>60) mL/min BUN/Creatinine Ratio 6.7 L (14-18) Glucose 305 H (80-115) mg/dL Hemoglobin A1c (4.50-6.20) % Calcium 9.9 (8.5-10.1) mg/dL Magnesium 1.9 (1.8-2.4) mg/dl Total Bilirubin 0.7 (0.2-1.0) mg/dL AST 25 (15-37) U/L ALT 62 (16-63) U/L Alkaline Phosphatase 129 H (46-116) U/L Troponin I (0.00-0.056) ng/mL C-Reactive Protein 2.7 H* (<1.0) mg/dL NT-Pro-B Natriuret Pep (0-125) pg/mL Total Protein 8.0 (6.4-8.2) g/dl Albumin 3.6 (3.4-5.0) g/dl Globulin 4.4 gm/dL Albumin/Globulin Ratio 0.8 L (1-2) 01/05/19 01/05/19 01/05/19 Range/Units 18:00 18:00 18:00 WBC (4.23-9.07) K/mm3 RBC (4.63-6.08) M/mm3 Hgb (13.7-17.5) gm/L Hct (40.1-51.0) % MCV (79.0-92.2) fl MCH (25.7-32.2) pg MCHC (32.2-35.5) g/dl RDW Std Deviation (35.1-43.9) fL Plt Count (163-337) K/mm3 MPV (9.4-12.3) fl Neut % (Auto) (34.0-67.9) % Lymph % (Auto) (21.8-53.1) % [place] % (Auto) (5.3-12.2) % Eos % (Auto) (0.8-7.0) Baso % (Auto) (0.1-1.2) % Neut # (Auto) (1.78-5.38) K/mm3 Lymph # (Auto) (1.32-3.57) K/mm3 [place] # (Auto) (0.30-0.82) K/mm3 Eos # (Auto) (0.04-0.54) K/mm3 Baso # (Auto) (0.01-0.08) K/mm3 Manual Slide Review ESR (0-15) mm/hr D-Dimer, Quantitative 2.00 H (0.19-0.50) mg/L Puncture Site ABG pH (7.35-7.45) ABG pCO2 (35.0-45.0) mmHg ABG pO2 (80.0-100.0) mmHg ABG HCO3 (22.0-26.0) meq/L ABG O2 Saturation (96.0-97.0) % ABG Base Excess (-2-2.0) Kong Test A-a Gradient mmHg O2 Delivery Device FiO2 (21.00-100.00) % Sodium (136-145) mEq/L Potassium (3.5-5.1) mEq/L Chloride (98-107) mEq/L Carbon Dioxide (21-32) mEq/L Anion Gap (5-15) BUN (7-18) mg/dL Creatinine (0.7-1.3) mg/dL Est Cr Clr Drug Dosing mL/min Estimated GFR (MDRD) (>60) mL/min BUN/Creatinine Ratio (14-18) Glucose (80-115) mg/dL Hemoglobin A1c 9.40 H (4.50-6.20) % Calcium (8.5-10.1) mg/dL Magnesium (1.8-2.4) mg/dl Total Bilirubin (0.2-1.0) mg/dL AST (15-37) U/L ALT (16-63) U/L Alkaline Phosphatase (46-116) U/L Troponin I (0.00-0.056) ng/mL C-Reactive Protein (<1.0) mg/dL NT-Pro-B Natriuret Pep 3423 H (0-125) pg/mL Total Protein (6.4-8.2) g/dl Albumin (3.4-5.0) g/dl Globulin gm/dL Albumin/Globulin Ratio (1-2) 01/05/19 Range/Units 19:40 WBC (4.23-9.07) K/mm3 RBC (4.63-6.08) M/mm3 Hgb (13.7-17.5) gm/L Hct (40.1-51.0) % MCV (79.0-92.2) fl MCH (25.7-32.2) pg MCHC (32.2-35.5) g/dl RDW Std Deviation (35.1-43.9) fL Plt Count (163-337) K/mm3 MPV (9.4-12.3) fl Neut % (Auto) (34.0-67.9) % Lymph % (Auto) (21.8-53.1) % [place] % (Auto) (5.3-12.2) % Eos % (Auto) (0.8-7.0) Baso % (Auto) (0.1-1.2) % Neut # (Auto) (1.78-5.38) K/mm3 Lymph # (Auto) (1.32-3.57) K/mm3 [place] # (Auto) (0.30-0.82) K/mm3 Eos # (Auto) (0.04-0.54) K/mm3 Baso # (Auto) (0.01-0.08) K/mm3 Manual Slide Review ESR (0-15) mm/hr D-Dimer, Quantitative (0.19-0.50) mg/L Puncture Site Rt radial ABG pH 7.48 H (7.35-7.45) ABG pCO2 32.3 L (35.0-45.0) mmHg ABG pO2 57.0 L (80.0-100.0) mmHg ABG HCO3 24.0 (22.0-26.0) meq/L ABG O2 Saturation 91.0 L (96.0-97.0) % ABG Base Excess 1.5 (-2-2.0) [place] Test Positive A-a Gradient 53 mmHg O2 Delivery Device Room air FiO2 21.00 (21.00-100.00) % Sodium (136-145) mEq/L Potassium (3.5-5.1) mEq/L Chloride (98-107) mEq/L Carbon Dioxide (21-32) mEq/L Anion Gap (5-15) BUN (7-18) mg/dL Creatinine (0.7-1.3) mg/dL Est Cr Clr Drug Dosing mL/min Estimated GFR (MDRD) (>60) mL/min BUN/Creatinine Ratio (14-18) Glucose (80-115) mg/dL Hemoglobin A1c (4.50-6.20) % Calcium (8.5-10.1) mg/dL Magnesium (1.8-2.4) mg/dl Total Bilirubin (0.2-1.0) mg/dL AST (15-37) U/L ALT (16-63) U/L Alkaline Phosphatase (46-116) U/L Troponin I (0.00-0.056) ng/mL C-Reactive Protein (<1.0) mg/dL NT-Pro-B Natriuret Pep (0-125) pg/mL Total Protein (6.4-8.2) g/dl Albumin (3.4-5.0) g/dl Globulin gm/dL Albumin/Globulin Ratio (1-2) Meds: Medications Generic Name Dose Route Start Last Admin Trade Name Freq PRN Reason Stop Dose Admin Hydrocodone Bitart/Acetaminophen 2 tab 01/05/19 22:27 01/05/19 22:49 [place] 325-5 Mg PO 2 tab Q4H PRN Administration Pain (moderate 4-6) Albuterol 2.5 mg 01/05/19 22:48 Proventil Neb Soln NEB Q2H PRN Shortness of Breath Albuterol/Ipratropium 3 ml 01/06/19 03:00 01/06/19 03:12 Duoneb 3.0-0.5 Mg/3 Ml NEB 3 ml Q6HRRT RISHI Administration Amlodipine Besylate 10 mg 01/06/19 09:00 Norvasc PO DAILY [facility] Aspirin 81 mg 01/06/19 09:00 Halfprin PO DAILY [facility] Carvedilol 25 mg 01/06/19 07:00 Coreg PO BIDMEALS [facility] Enoxaparin Sodium 40 mg 01/06/19 09:00 Lovenox SUBCUT DAILY [facility] Furosemide 40 mg 01/06/19 09:00 Lasix IVPUSH DAILY [facility] Ceftriaxone Sodium 2 gm/ 100 mls @ 200 mls/hr 01/05/19 20:00 01/05/19 20:21 Sodium Chloride IV 200 mls/hr Q24H RISHI Administration Azithromycin 500 mg/ Sodium 250 mls @ 250 mls/hr 01/06/19 23:00 Chloride IV 01/09/19 23:59 Q24H [facility] Insulin Glargine 40 unit 01/06/19 09:00 Lantus SUBCUT DAILY [facility] Insulin Human Lispro 0 unit 01/06/19 07:00 Humalog SUBCUT QIDACANDBED [facility] Protocol Lisinopril 10 mg 01/06/19 09:00 Prinivil PO DAILY [facility] Miscellaneous Information 1 ea 01/07/19 09:00 Remove Patch TRDERM DAILY [facility] Mometasone Furoate 0 gm 01/06/19 09:00 Asmanex Hfa 100mcg INH BID RISHI Nicotine 7 mg 01/06/19 09:00 Habitrol TRDERM DAILY [facility] Ondansetron HCl 4 mg 01/05/19 22:27 Zofran Odt PO Q4H PRN nausea, able to take PO Simvastatin 20 mg 01/06/19 21:00 Zocor PO BEDTIME [facility] Sodium Chloride 10 ml 01/05/19 19:01 01/05/19 19:23 Saline Flush FLUSH 10 ml ASDIRECTED PRN Administration Keep Vein Open Discontinued Medications Generic Name Dose Route Start Last Admin Trade Name Freq PRN Reason Stop Dose Admin Albuterol/Ipratropium 3 ml 01/05/19 19:00 01/05/19 19:09 Duoneb 3.0-0.5 Mg/3 Ml NEB 01/05/19 19:01 3 ml ONETIME ONE Administration Carvedilol 25 mg 01/05/19 23:44 01/06/19 00:14 Coreg PO 01/05/19 23:45 25 mg ONETIME ONE Administration Furosemide 40 mg 01/05/19 19:55 01/05/19 20:17 Lasix IVPUSH 01/05/19 19:56 40 mg NOW ONE Administration Azithromycin 500 mg/ Sodium 250 mls @ 250 mls/hr 01/05/19 22:52 01/05/19 23: 33 Chloride IV 01/05/19 23:51 250 mls/hr ONETIME ONE Administration Insulin Human Regular 8 unit 01/05/19 20:07 01/05/19 20:19 Humulin R SUBCUT 01/05/19 20:08 8 units ONETIME ONE Administration Mometasone Furoate 0 gm 01/06/19 06:00 Asmanex Hfa 100mcg INH BIDRT [facility] - Radiology Interpretation Free Text/Narrative:: 63-year-old male presents to the ED with worsening dyspnea over the last 3 days. Sounds like he's developed severe COPD symptoms over the last year. Reports recent testing with respiratory function poor pulmonary function studies suggest no benefit with albuterol suggesting nonobstructive disease. However he is a [id number] history of smoking which strongly suggest that he has COPD. He is not wheezing at present. He is tachypneic breathing 30/m with O2 sats of 90% on room air. Since comorbidities are that of uncontrolled hypertension and type 2 diabetes controlled with insulin and metformin. Lungs are clear to auscultation percussion at this time. Jugular venous pulsations are not elevated. Will try a DuoNeb neb treatment to see if it makes any difference. We'll hold off on steroids until I see his chest x-ray. ABGs will be done. He'll be started on oxygen 3 L/m by nasal cannula. At this time saline lock only. Lab work to include cardiac function and troponin levels. - Re-Assessments/Exams Free Text/Narrative Re-Assessment/Exam: 01/05/19 19:52 portable chest x-ray reveals a lot of scar tissue throughout both lower lungs. Mild vascular congestion. Suspect early pneumonia right middle lobe. D-dimer reported to be elevated at 2.0. 01/05/19 19:54 Total white count is elevated at 10.24 with 70% neutrophils on the auto differential. Hemoglobin is 14.1 with hematocrit of 44.2. Platelet count 287,000. PH is 7.48 with a PCO2 of 32.3. PO2 is 57.0 bicarbonate is 24. Sats are 91%. Sodium is 138 with potassium of 4.3. Chloride 11 with a bicarbonate 29. Anion gap is 12.3. BUN is 6 with a creatinine of 0.9. Estimated GFR is greater than 60. Glucose is elevated at 305. Calcium is 9.9 with a magnesium of 1.9. Bilirubin and liver function is normal other than slightly elevated alk phosphatase of 129. C-reactive protein is 2.7. BNP is elevated at 3423. Total protein is 8.0 with an albumin fraction of 3.6. D-dimer is felt to be elevated due to congestive heart failure. Possible pneumonia right middle lobe. Will start him on Rocephin 2 g IV. He will also be given Lasix 40 mg IV for elevated BNP. He will require admission to the hospital. 01/05/19 20:[address] Garvey and he will attend the patient in the ED. He has accepted care of the patient and he could be transferred to med surgery floor at this time. 02 sats remain around 90% on 3 L. Since he is not a retainer I will increase him to 4 L/min. the patient appears to experience an acute exacerbation of congestive heart failure. Reason for this is unclear. Apparently has COPD which may be causing secondary heart failure. He is going to require an echocardiogram as part of his workup and cardiology consultation. He has voided approximately 1200 mils of fluid since receiving Lasix 40 mg IV. It appears no urine has been sent for analysis. 01/06/19 04:00: As I was doing his chart I realize that his ECG water had been omitted. She was collected and I did read it. It shows a left axis deviation due to left anterior fascicular block and a right bundle branch block is well. Diffuse early repolarization abnormalities. T-wave inversion II, III, and F aVF and one cannot rule out ischemia. He has left atrial hypertrophy pattern. Definitely abnormal ECG. Departure - Departure Time of Disposition: 20:09 Disposition: Admitted As Inpatient 68 Condition: Fair Clinical Impression: Acute exacerbation of CHF (congestive heart failure) Qualifiers: Heart failure type: unspecified Qualified Code(s): I50.9 - Heart failure, unspecified COPD (chronic obstructive pulmonary disease) Qualifiers: COPD type: emphysema Emphysema type: panlobular Qualified Code(s): J43.1 - Panlobular emphysema - Discharge Information *PRESCRIPTION DRUG MONITORING PROGRAM REVIEWED*: Not Applicable *COPY OF PRESCRIPTION DRUG MONITORING REPORT IN PATIENT CHANCE: Not Applicable - My Orders Last 24 Hours: My Active Orders 01/05/19 19:00 Chest 1V Frontal [CR] Stat 01/05/19 19:01 Oxygen Therapy [RC] ASDIRECTED Sodium Chloride 0.9% [Saline Flush] 10 ml FLUSH ASDIRECTED PRN Peripheral IV Insertion Adult [OM.PC] Stat 01/05/19 20:00 cefTRIAXone [Rocephin] 2 gm Sodium Chloride 0.9% [Normal Saline] 100 ml IV Q24H - Assessment/Plan Last 24 Hours: My Active Orders 01/05/19 19:00 Chest 1V Frontal [CR] Stat 01/05/19 19:01 Oxygen Therapy [RC] ASDIRECTED Sodium Chloride 0.9% [Saline Flush] 10 ml FLUSH ASDIRECTED PRN Peripheral IV Insertion Adult [OM.PC] Stat 01/05/19 20:00 cefTRIAXone [Rocephin] 2 gm Sodium Chloride 0.9% [Normal Saline] 100 ml IV Q24H
[2019-01-05] MEDS ORDERED: Albuterol/Ipratropium 3.0-0.5 MG/3 ML Neb Soln NEB ONE (19:00)
[2019-01-05] MEDS ORDERED: Sodium Chloride 0.9% 10 ML Syringe FLUSH PRN (19:01)
[2019-01-05] MEDS ORDERED: Furosemide 40 MG/4 ML VIAL IVPUSH ONE (19:55)
[2019-01-05] MEDS ORDERED: cefTRIAXone 2 GM in Sodium Chloride 0.9% 100 ML IV SCH (20:00)
[2019-01-05] MEDS ORDERED: Insulin Regular, Human 100 Units/ML 3 ML Vial SUBCUT ONE (20:07)
[2019-01-05 20:18] LABS: HEMOGLOBIN A1C 9.4 % (4.50-6.20)
[2019-01-05] MEDS ORDERED: Acetaminophen/HYDROcodone 325-5 MG Tab PO PRN (22:27)
[2019-01-05] MEDS ORDERED: Ondansetron 4 MG Tab.DIS PO PRN (22:27)
--- NOTE | 2019-01-05 22:46 | PCM.HP ---
H&P History of Present Illness - General Date of Service: 01/05/19 Admit Problem/Dx: Admission Diagnosis/Problem Admission Diagnosis/Problem CHF, Congestive heart failure - History of Present Illness Initial Comments - Free Text/Narative: Chest 3-year-old male presents to the emergency room with 2 day history of increasing shortness of breath. Today he crescendoed and brought the patient into the hospital. Patient states she's had worsening orthopnea and PND. He states he sleeps on 4 pillows. He doesn't usually wake up in the middle night but over the last couple days he has been. He denies any chest pain and only minimal lower extremity edema. He is a diabetic on insulin and has been trying to stop smoking. He is down to 3 cigarettes a day. He states he is not getting any rest and is having difficulty breathing. He has been using a hand-held nebulizer without any relief. Patient was seen here last year with CHF exacerbation and sent home on furosemide. Patient currently is not taking furosemide, because he states no one has prescribed for him. Patient also complains of right knee pain. Apparently he had a knee replacement 2 years ago and had postoperative complications including septic joint. He now takes hydrocodone 10 mg for the pain. Patient denies any EtOH. Other HPI/Comments: Review of old records show the patient had a CT scan. -Chest CTA (10/31/17): -No findings of PE -Small bilateral pleural effusions suggesting pulmonary vascular congestion. Findings may represent CHF -Emphysematous changes -Slightly prominent lymph nodes within mediastinum. No prior chest CT available to confirm stability. Findings may be related to old inflammatory process. Recommend follow-up contrast enhanced chest CT in 6 months to confirm stability. Also echocardiogram done on last admission (11/12): -Echo obtained 10/31/17: 1. LVEF, by visual estimation is 20-25% 2. Global and severely decreased left ventricular systolic function 3. Elevated left atrial and left ventricular end-diastolic pressures 4. Restrictive (Grade 3) pattern of LV diastolic filling 5. Low normal right ventricular systolic function 6. Moderately dilated left atrium 7. Mild to moderate mitral valve regurgitation 8. The right ventricular systolic pressure is moderately elevated at 42.5mmHg 9. The inferior vena cava is dilated with respiratory size variation greater than 50% 10. No significant change compared to 01/20/13 - Related Data Allergies/Adverse Reactions: Allergies Allergy/AdvReac Type Severity Reaction Status Date / Time No Known Allergies Allergy Verified 07/01/18 11:10 Home Medications: Home Meds Carvedilol 25 mg PO BID 10/17/14 [History] Lisinopril 10 mg PO DAILY 10/17/14 [History] amLODIPine Besylate [Amlodipine Besylate] 10 mg PO DAILY 10/17/14 [History] Cyclobenzaprine [Flexeril] 5 - 10 mg PO Q8H PRN 12/26/14 [History] Aspirin 81 mg PO DAILY #30 tab.chew 11/01/17 [Rx] Albuterol [Proventil HFA] 1 puff INH QID PRN #1 inhaler 06/24/18 [Rx] Insulin Aspart [NovoLOG] See Protocol SUBCUT TID 06/24/18 [History] Insulin Glarg,Human.Rec.Analog [Lantus Solostar] 50 unit SUBCUT DAILY 06/24/18 [ History] atorvaSTATin [Lipitor] 20 mg PO BEDTIME 06/24/18 [History] Albuterol [Ventolin HFA] 2 puff INH Q4H PRN #1 puff 07/01/18 [Rx] Fluticasone Propionate [Flovent HFA 110 MCG] 1 puff INH BID #1 puff 07/01/18 [Rx ] Hydrocodone/Acetaminophen [Hydrocodon-Acetaminophn 10-325] 10 - 325 tab .ROUTE Q4HR PRN 01/05/19 [History] metFORMIN [Glucophage] 500 mg PO BID 01/05/19 [History] Past Medical History HEENT History: Reports: Impaired Vision Cardiovascular History: Reports: High Cholesterol, Hypertension, Other (See Below) Other Cardiovascular History: congenital heart disease Respiratory History: Reports: COPD, Pneumonia, Recurrent Musculoskeletal History: Reports: Arthritis Psychiatric History: Reports: None Endocrine/Metabolic History: Reports: Diabetes, Type II - Infectious Disease History Infectious Disease History: Reports: Chicken Pox, Measles, Mumps - Past Surgical History HEENT Surgical History: Reports: Oral Surgery Other Endocrine Surgeries/Procedures: Insulin dependent. Musculoskeletal Surgical History: Reports: Knee Replacement Social & Family History - Family History Family Medical History: Noncontributory Cardiac: Reports: CAD, Hypertension Endocrine/Metabolic: Reports: Diabetes, type II Oncologic: Reports: Liver, Other (See Below) Other Oncologic Family History: stomach - Tobacco Use Smoking Status *Q: Current Every Day Smoker Years of Tobacco use: 50 Packs/Tins Daily: 1 Used Tobacco, but Quit: No Second Hand Smoke Exposure: No - Caffeine Use Caffeine Use: Reports: Coffee, Soda Caffeine Use Comment: occassionally - Recreational Drug Use Recreational Drug Use: No - Living Situation & Occupation Living situation: Reports: Single, Alone Occupation: Unemployed H&P Review of Systems - Review of Systems: Review Of Systems: ROS reveals no pertinent complaints other than HPI. Exam - Exam Exam: See Below - Vital Signs Vital Signs: Last Vital Signs Temp 98.1 F 01/05/19 17:49 Pulse 112 H 01/05/19 17:49 Resp 30 H 01/05/19 17:49 BP 167/106 H 01/05/19 17:49 Pulse Ox 91 L 01/05/19 19:00 Weight: 225 lb 1.6 oz - Exam Quality Assessment: No: Supplemental Oxygen General: Alert, Oriented, 4 HEENT: PERRLA, Hearing Intact, Mucosa Moist & [place], Nares Patent, Normal Nasal Septum, Posterior Pharynx Clear, Conjunctiva Clear, EOMI, EACs Clear, TMs Clear Neck: Supple, Trachea Midline, 2 Lungs: Clear to Auscultation, Normal Respiratory Effort Cardiovascular: Regular Rate, Regular Rhythm GI/Abdominal Exam: Normal Bowel Sounds, Soft, Non-Tender, No Organomegaly, No Distention, No Abnormal Bruit, No Mass, Pelvis Stable Back Exam: Normal Inspection, Full Range of Motion, NT Extremities: Normal Inspection, Normal Range of Motion, Non-Tender, Normal Capillary Refill, Pedal Edema (2+ pedal edema to upper calf) Neurological: Cranial Nerves Intact Neuro Extensive - Mental Status: Alert, Oriented x3, Normal Mood/Affect, Normal Cognition Psychiatric: Alert, Normal Affect, Normal Mood - Patient Data Lab Results Last 24 hrs: Laboratory Results - last 24 hr 01/05/19 01/05/19 01/05/19 Range/Units 18:00 18:00 18:00 WBC 10.24 H (4.23-9.07) K/mm3 RBC 5.21 (4.63-6.08) M/mm3 Hgb 14.1 (13.7-17.5) gm/L Hct 44.2 (40.1-51.0) % MCV 84.8 (79.0-92.2) fl MCH 27.1 (25.7-32.2) pg MCHC 31.9 L (32.2-35.5) g/dl RDW Std Deviation 46.9 H (35.1-43.9) fL Plt Count 287 (163-337) K/mm3 MPV 12.0 (9.4-12.3) fl Neut % (Auto) 70.5 H (34.0-67.9) % Lymph % (Auto) 17.5 L (21.8-53.1) % [place] % (Auto) 9.4 (5.3-12.2) % Eos % (Auto) 2.2 (0.8-7.0) Baso % (Auto) 0.2 (0.1-1.2) % Neut # (Auto) 7.22 H (1.78-5.38) K/mm3 Lymph # (Auto) 1.79 (1.32-3.57) K/mm3 [place] # (Auto) 0.96 H (0.30-0.82) K/mm3 Eos # (Auto) 0.23 (0.04-0.54) K/mm3 Baso # (Auto) 0.02 (0.01-0.08) K/mm3 Manual Slide Review Normal smear ESR 31 H (0-15) mm/hr D-Dimer, Quantitative (0.19-0.50) mg/L Puncture Site ABG pH (7.35-7.45) ABG pCO2 (35.0-45.0) mmHg ABG pO2 (80.0-100.0) mmHg ABG HCO3 (22.0-26.0) meq/L ABG O2 Saturation (96.0-97.0) % ABG Base Excess (-2-2.0) Kong Test A-a Gradient mmHg O2 Delivery Device FiO2 (21.00-100.00) % Sodium 138 (136-145) mEq/L Potassium 4.3 (3.5-5.1) mEq/L Chloride 101 (98-107) mEq/L Carbon Dioxide 29 (21-32) mEq/L Anion Gap 12.3 (5-15) BUN 6 L (7-18) mg/dL Creatinine 0.9 (0.7-1.3) mg/dL Est Cr Clr Drug Dosing 89.00 mL/min Estimated GFR (MDRD) > 60 (>60) mL/min BUN/Creatinine Ratio 6.7 L (14-18) Glucose 305 H (80-115) mg/dL POC Glucose (80-115) mg/dL Hemoglobin A1c (4.50-6.20) % Calcium 9.9 (8.5-10.1) mg/dL Magnesium 1.9 (1.8-2.4) mg/dl Total Bilirubin 0.7 (0.2-1.0) mg/dL AST 25 (15-37) U/L ALT 62 (16-63) U/L Alkaline Phosphatase 129 H (46-116) U/L Troponin I (0.00-0.056) ng/mL C-Reactive Protein 2.7 H* (<1.0) mg/dL NT-Pro-B Natriuret Pep (0-125) pg/mL Total Protein 8.0 (6.4-8.2) g/dl Albumin 3.6 (3.4-5.0) g/dl Globulin 4.4 gm/dL Albumin/Globulin Ratio 0.8 L (1-2) 01/05/19 01/05/19 01/05/19 Range/Units 18:00 18:00 18:00 WBC (4.23-9.07) K/mm3 RBC (4.63-6.08) M/mm3 Hgb (13.7-17.5) gm/L Hct (40.1-51.0) % MCV (79.0-92.2) fl MCH (25.7-32.2) pg MCHC (32.2-35.5) g/dl RDW Std Deviation (35.1-43.9) fL Plt Count (163-337) K/mm3 MPV (9.4-12.3) fl Neut % (Auto) (34.0-67.9) % Lymph % (Auto) (21.8-53.1) % [place] % (Auto) (5.3-12.2) % Eos % (Auto) (0.8-7.0) Baso % (Auto) (0.1-1.2) % Neut # (Auto) (1.78-5.38) K/mm3 Lymph # (Auto) (1.32-3.57) K/mm3 [place] # (Auto) (0.30-0.82) K/mm3 Eos # (Auto) (0.04-0.54) K/mm3 Baso # (Auto) (0.01-0.08) K/mm3 Manual Slide Review ESR (0-15) mm/hr D-Dimer, Quantitative 2.00 H (0.19-0.50) mg/L Puncture Site ABG pH (7.35-7.45) ABG pCO2 (35.0-45.0) mmHg ABG pO2 (80.0-100.0) mmHg ABG HCO3 (22.0-26.0) meq/L ABG O2 Saturation (96.0-97.0) % ABG Base Excess (-2-2.0) Kong Test A-a Gradient mmHg O2 Delivery Device FiO2 (21.00-100.00) % Sodium (136-145) mEq/L Potassium (3.5-5.1) mEq/L Chloride (98-107) mEq/L Carbon Dioxide (21-32) mEq/L Anion Gap (5-15) BUN (7-18) mg/dL Creatinine (0.7-1.3) mg/dL Est Cr Clr Drug Dosing mL/min Estimated GFR (MDRD) (>60) mL/min BUN/Creatinine Ratio (14-18) Glucose (80-115) mg/dL POC Glucose (80-115) mg/dL Hemoglobin A1c 9.40 H (4.50-6.20) % Calcium (8.5-10.1) mg/dL Magnesium (1.8-2.4) mg/dl Total Bilirubin (0.2-1.0) mg/dL AST (15-37) U/L ALT (16-63) U/L Alkaline Phosphatase (46-116) U/L Troponin I (0.00-0.056) ng/mL C-Reactive Protein (<1.0) mg/dL NT-Pro-B Natriuret Pep 3423 H (0-125) pg/mL Total Protein (6.4-8.2) g/dl Albumin (3.4-5.0) g/dl Globulin gm/dL Albumin/Globulin Ratio (1-2) 01/05/19 01/05/19 Range/Units 19:40 21:29 WBC (4.23-9.07) K/mm3 RBC (4.63-6.08) M/mm3 Hgb (13.7-17.5) gm/L Hct (40.1-51.0) % MCV (79.0-92.2) fl MCH (25.7-32.2) pg MCHC (32.2-35.5) g/dl RDW Std Deviation (35.1-43.9) fL Plt Count (163-337) K/mm3 MPV (9.4-12.3) fl Neut % (Auto) (34.0-67.9) % Lymph % (Auto) (21.8-53.1) % [place] % (Auto) (5.3-12.2) % Eos % (Auto) (0.8-7.0) Baso % (Auto) (0.1-1.2) % Neut # (Auto) (1.78-5.38) K/mm3 Lymph # (Auto) (1.32-3.57) K/mm3 [place] # (Auto) (0.30-0.82) K/mm3 Eos # (Auto) (0.04-0.54) K/mm3 Baso # (Auto) (0.01-0.08) K/mm3 Manual Slide Review ESR (0-15) mm/hr D-Dimer, Quantitative (0.19-0.50) mg/L Puncture Site Rt radial ABG pH 7.48 H (7.35-7.45) ABG pCO2 32.3 L (35.0-45.0) mmHg ABG pO2 57.0 L (80.0-100.0) mmHg ABG HCO3 24.0 (22.0-26.0) meq/L ABG O2 Saturation 91.0 L (96.0-97.0) % ABG Base Excess 1.5 (-2-2.0) Kong Test Positive A-a Gradient 53 mmHg O2 Delivery Device Room air FiO2 21.00 (21.00-100.00) % Sodium (136-145) mEq/L Potassium (3.5-5.1) mEq/L Chloride (98-107) mEq/L Carbon Dioxide (21-32) mEq/L Anion Gap (5-15) BUN (7-18) mg/dL Creatinine (0.7-1.3) mg/dL Est Cr Clr Drug Dosing mL/min Estimated GFR (MDRD) (>60) mL/min BUN/Creatinine Ratio (14-18) Glucose (80-115) mg/dL POC Glucose 172 H (80-115) mg/dL Hemoglobin A1c (4.50-6.20) % Calcium (8.5-10.1) mg/dL Magnesium (1.8-2.4) mg/dl Total Bilirubin (0.2-1.0) mg/dL AST (15-37) U/L ALT (16-63) U/L Alkaline Phosphatase (46-116) U/L Troponin I (0.00-0.056) ng/mL C-Reactive Protein (<1.0) mg/dL NT-Pro-B Natriuret Pep (0-125) pg/mL Total Protein (6.4-8.2) g/dl Albumin (3.4-5.0) g/dl Globulin gm/dL Albumin/Globulin Ratio (1-2) Result Diagrams: 01/05/19 18:00 01/05/19 18:00 Imaging Impressions Last 24 hrs: Chest x-ray: Bilateral pulmonary vascular congestion with difficulty determining infiltrating the right lung. - Problem List (1) Pneumonia SNOMED Code(s): 036823530 ICD Code: J18.9 - PNEUMONIA, UNSPECIFIED ORGANISM Status: Acute Current Visit: Yes (2) CHF exacerbation SNOMED Code(s): 185733944, 86037187404166 ICD Code: I50.9 - HEART FAILURE, UNSPECIFIED Status: Acute Current Visit : Yes Qualifiers: Heart failure type: unspecified Qualified Code(s): I50.9 - Heart failure, unspecified (3) COPD (chronic obstructive pulmonary disease) SNOMED Code(s): 95676559 ICD Code: J44.9 - CHRONIC OBSTRUCTIVE PULMONARY DISEASE, UNSPECIFIED Status : Acute Current Visit: Yes Qualifiers: COPD type: emphysema Emphysema type: panlobular Qualified Code(s): J43.1 - Panlobular emphysema Problem List Initiated/Reviewed/Updated: Yes Orders Last 24hrs: Active Orders 24 hr Category Date Time Status Admission Status [Patient Status] [ADT] Routine ADT 01/05/19 20:07 Active Blood Glucose Check, Bedside [RC] WITHMEALSANDBED Care 01/05/19 22:35 Ordered Intake and Output Strict [RC] ASDIRECTED Care 01/05/19 22:27 Ordered Oxygen Therapy [RC] ASDIRECTED Care 01/05/19 19:01 Active Oxygen Therapy [RC] PRN Care 01/05/19 22:27 Ordered Up ad [place] [RC] ASDIRECTED Care 01/05/19 22:27 Ordered VTE/DVT Education [RC] PER UNIT ROUTINE Care 01/05/19 22:27 Ordered Vital Signs [RC] Q4H Care 01/05/19 22:27 Ordered [employer] Diet [DIET] Diet 01/06/19 Breakfast Ordered Chest 1V Frontal [CR] Stat Exams 01/05/19 19:00 Taken Echo Comp wo Cont [US] Routine Exams 01/06/19 00:01 Ordered C-REACTIVE PROTEIN [CHEM] AM Lab 01/06/19 05:11 Ordered C-REACTIVE PROTEIN [CHEM] AM Lab 01/07/19 05:11 Ordered C-REACTIVE PROTEIN [CHEM] AM Lab 01/08/19 05:11 Ordered C-REACTIVE PROTEIN [CHEM] AM Lab 01/09/19 05:11 Ordered C-REACTIVE PROTEIN [CHEM] AM Lab 01/10/19 05:11 Ordered CBC WITH AUTO DIFF [HEME] AM Lab 01/06/19 05:11 Ordered CBC WITH AUTO DIFF [HEME] AM Lab 01/07/19 05:11 Ordered CBC WITH AUTO DIFF [HEME] AM Lab 01/08/19 05:11 Ordered CBC WITH AUTO DIFF [HEME] AM Lab 01/09/19 05:11 Ordered CBC WITH AUTO DIFF [HEME] AM Lab 01/10/19 05:11 Ordered COMPREHENSIVE METABOLIC PN,CMP [CHEM] AM Lab 01/06/19 05:11 Ordered COMPREHENSIVE METABOLIC PN,CMP [CHEM] AM Lab 01/07/19 05:11 Ordered COMPREHENSIVE METABOLIC PN,CMP [CHEM] AM Lab 01/08/19 05:11 Ordered COMPREHENSIVE METABOLIC PN,CMP [CHEM] AM Lab 01/09/19 05:11 Ordered COMPREHENSIVE METABOLIC PN,CMP [CHEM] AM Lab 01/10/19 05:11 Ordered CULTURE BLOOD [BC] Stat Lab 01/05/19 20:16 Ordered CULTURE BLOOD [BC] Stat Lab 01/05/19 20:16 Ordered MAGNESIUM [CHEM] AM Lab 01/06/19 05:11 Ordered MAGNESIUM [CHEM] AM Lab 01/07/19 05:11 Ordered MAGNESIUM [CHEM] AM Lab 01/08/19 05:11 Ordered MAGNESIUM [CHEM] AM Lab 01/09/19 05:11 Ordered MAGNESIUM [CHEM] AM Lab 01/10/19 05:11 Ordered PRO B-TYPE NATRIUR PEPT,BNPPRO [CHEM] DAILY Lab 01/06/19 05:10 Ordered PRO B-TYPE NATRIUR PEPT,BNPPRO [CHEM] DAILY Lab 01/07/19 05:10 Ordered PRO B-TYPE NATRIUR PEPT,BNPPRO [CHEM] DAILY Lab 01/08/19 05:10 Ordered PRO B-TYPE NATRIUR PEPT,BNPPRO [CHEM] DAILY Lab 01/09/19 05:10 Ordered PRO B-TYPE NATRIUR PEPT,BNPPRO [CHEM] DAILY Lab 01/10/19 05:10 Ordered Acetaminophen/HYDROcodone [[place] 325-5 MG] Med 01/05/19 22:27 Ordered 2 tab PO Q4H PRN Aspirin Med 01/06/19 09:00 Ordered 81 mg PO DAILY Carvedilol Med 01/06/19 09:00 Ordered 25 mg PO BID Enoxaparin [Lovenox] Med 01/06/19 09:00 Ordered 40 mg SUBCUT DAILY Fluticasone Propionate Med 01/06/19 09:00 Ordered 1 puff INH BID Furosemide [Lasix] Med 01/06/19 09:00 Ordered 40 mg IVPUSH DAILY Insulin Glarg,Human.Rec.Analog [LantUS] Med 01/06/19 09:00 Ordered 40 unit SUBCUT DAILY Insulin Lispro [HumaLOG] Med 01/06/19 07:00 Ordered See Protocol SUBCUT QIDACANDBED Lisinopril [Prinivil] Med 01/06/19 09:00 Ordered 10 mg PO DAILY Nicotine [Habitrol] Med 01/06/19 09:00 Ordered 7 mg TRDERM DAILY Ondansetron [Zofran ODT] Med 01/05/19 22:27 Ordered 4 mg PO Q4H PRN Simvastatin [Zocor] Med 01/06/19 21:00 Active 20 mg PO BEDTIME Sodium Chloride 0.9% [Saline Flush] Med 01/05/19 19:01 Active 10 ml FLUSH ASDIRECTED PRN amLODIPine [Norvasc] Med 01/06/19 09:00 Ordered 10 mg PO DAILY cefTRIAXone [Rocephin] 2 gm Med 01/05/19 20:00 Active Sodium Chloride 0.9% [Normal Saline] 100 ml IV Q24H Blood Culture x2 Reflex Set [OM.PC] Stat Oth 01/05/19 20:16 Ordered Peripheral IV Insertion Adult [OM.PC] Stat Oth 01/05/19 19:01 Ordered Resuscitation Status Routine Resus Stat 01/05/19 22:27 Ordered Medication Orders Hydrocodone Bitart/Acetaminophen ([place] 325-5 Mg) 2 tab PO Q4H PRN PRN Reason: Pain (moderate 4-6) Amlodipine Besylate (Norvasc) 10 mg PO DAILY [facility] Aspirin (Aspirin) 81 mg PO DAILY [facility] Enoxaparin Sodium (Lovenox) 40 mg SUBCUT DAILY [facility] Furosemide (Lasix) 40 mg IVPUSH DAILY [facility] Ceftriaxone Sodium 2 gm/ (Sodium Chloride) 100 mls @ 200 mls/hr IV Q24H RISHI Last Admin: 01/05/19 20:21 Dose: 200 mls/hr Insulin Glargine (Lantus) 40 unit SUBCUT DAILY [facility] Insulin Human Lispro (Humalog) 0 unit SUBCUT QIDACANDBED [facility]; Protocol Lisinopril (Prinivil) 10 mg PO DAILY [facility] Nicotine (Habitrol) 7 mg TRDERM DAILY [facility] Non-Formulary Medication (Carvedilol) 25 mg PO BID [facility] Non-Formulary Medication (Fluticasone Propionate) 1 puff INH BID [facility] Ondansetron HCl (Zofran Odt) 4 mg PO Q4H PRN PRN Reason: nausea, able to take PO Simvastatin (Zocor) 20 mg PO BEDTIME [facility] Sodium Chloride (Saline Flush) 10 ml FLUSH ASDIRECTED PRN PRN Reason: Keep Vein Open Last Admin: 01/05/19 19:23 Dose: 10 ml Assessment/Plan Comment:: Assessment * 63-year-old male with history of COPD and CHF presents to the emergency room with increasing shortness of breath * CHF exacerbation - BMP 3423 and chest x-ray consistent with CHF; * Pneumonia - chest x-ray with possible right-sided infiltrate. WBC 10.2, suspect protein 2.7 * Respiratory alkalosis: ABG: PH 7.48, PCO2 32.8, HCO3 24 * Poorly controlled insulin-dependent type 2 diabetes * Hypertension/hyperlipidemia * Chronic pain from right knee replacement complications * Tobaccoism Plan * Admit to telemetry MedSurg floor * Lasix 40 mg IV in the morning * FiO2 to keep SPO2 above 92% * Strict I's and O's and daily weights * Echocardiogram * Reconcile home meds * Lantus 50 units daily and medium dose sliding scale insulin * Check to see if patient had a follow-up CT of the chest with contrast for abnormal previous CTA * Albuterol and Atrovent nebulizers every 6 hours and albuterol nebulizer every 2 hours when necessary * Rocephin 2 g to 24 hours * Azithromycin 500 mg IV now then 250 mg daily 4 additional days * CBC, CMP, C-reactive protein, and BNP daily * Fasting cholesterol in the morning * Nicotine patch and smoking cessation education * VTE prophylaxis with Lovenox * CODE STATUS full code * Length of stay likely 3 days
[2019-01-05] MEDS ORDERED: Albuterol 0.083% 2.5 MG/3 ML Neb Soln NEB PRN (22:48)
[2019-01-05] MEDS ORDERED: Azithromycin 500 MG in Sodium Chloride 0.9% 250 ML IV ONE (22:52)
[2019-01-05] MEDS ORDERED: Carvedilol 12.5 MG Tab PO ONE (23:44)
[2019-01-06] MEDS: Albuterol/Ipratropium 3.0-0.5 MG/3 ML Neb Soln NEB SCH ×3 (03:12→15:30)
[2019-01-06] MEDS ORDERED: Mometasone Furoate HFA 100mcg/Puff 13 GM Inhaler INH SCH ×2 (06:00→09:00)
[2019-01-06] MEDS ORDERED: Carvedilol 12.5 MG Tab PO SCH (07:00)
[2019-01-06] MEDS: Insulin Lispro 100 Units/ML 3 ML Vial SUBCUT SCH ×2 (08:24→12:35)
[2019-01-06] MEDS ORDERED: FLUTICASONE PROPIONATE INH SCH (09:00)
[2019-01-06] MEDS ORDERED: Aspirin 81 MG Tab.EC PO SCH (09:00)
[2019-01-06] MEDS ORDERED: amLODIPine 10 MG Tab PO SCH (09:00)
[2019-01-06] MEDS ORDERED: Lisinopril 20 MG Tab PO SCH (09:00)
[2019-01-06] MEDS ORDERED: Furosemide 40 MG/4 ML VIAL IVPUSH SCH (09:00)
[2019-01-06] MEDS ORDERED: Enoxaparin 40 MG/0.4 ML Syringe SUBCUT SCH (09:00)
[2019-01-06] MEDS ORDERED: Nicotine 7 MG/24 Hr Patch TRDERM SCH (09:00)
[2019-01-06] MEDS ORDERED: Insulin Glarg,Human.Rec.Analog 100 UNIT/ML ML SUBCUT SCH (09:00)
--- NOTE | 2019-01-06 09:38 | CR ---
Chest: Portable view of the chest is obtained. Comparison: Prior chest x-ray of 07/01/18. Heart size at the upper limits of normal. Diffuse increased pulmonary vessels are seen which are not as severe as on prior exam. Lungs otherwise are clear. Bony structures show scattered degenerative change within the spine. Impression: 1. Heart size at the upper limits of normal. 2. Increased central lung markings not as prominent as on prior study. Findings may represent mild pulmonary vascular congestion. Other etiology could be mild bronchitis. 3. Other findings which are felt to be incidental as noted above. Diagnostic code #3
--- NOTE | 2019-01-06 09:41 | PCM.PN ---
- General Info Date of Service: 01/06/19 Admission Dx/Problem (Free Text): Admission Diagnosis/Problem Admission Diagnosis/Problem CHF, Congestive heart failure Functional Status: Reports: Pain Controlled, Tolerating Diet, Ambulating, Urinating. Denies: New Symptoms - Review of Systems General: Reports: No Symptoms. Denies: Fever, Weakness, Fatigue, Malaise, Chills HEENT: Reports: No Symptoms. Denies: Headaches, Sore Throat Pulmonary: Reports: No Symptoms. Denies: Shortness of Breath, Cough, Sputum, Wheezing Cardiovascular: Reports: No Symptoms. Denies: Chest Pain, Palpitations, Dyspnea on Exertion, Orthopnea, Edema Gastrointestinal: Reports: No Symptoms. Denies: Abdominal Pain, Constipation, Diarrhea, Nausea, Vomiting Genitourinary: Reports: No Symptoms. Denies: Pain Musculoskeletal: Reports: No Symptoms Skin: Reports: No Symptoms Neurological: Reports: No Symptoms. Denies: Confusion, Pre-Existing Deficit, Difficulty Walking, Gait Disturbance Psychiatric: Reports: No Symptoms - Patient Data Vitals - Most Recent: Last Vital Signs Temp 98.1 F 01/06/19 07:38 Pulse 84 01/06/19 07:38 Resp 20 01/06/19 07:38 BP 115/62 01/06/19 08:18 Pulse Ox 97 01/06/19 09:17 Weight - Most Recent: 225 lb 3.2 oz I&O - Last 24 Hours: Intake & Output 01/05/19 01/06/19 01/06/19 22:59 06:59 14:59 Intake Total 300 550 Balance 300 550 Lab Results Last 24 Hours: Laboratory Results - last 24 hr 01/05/19 01/05/19 01/05/19 Range/Units 18:00 18:00 18:00 WBC 10.24 H (4.23-9.07) K/mm3 RBC 5.21 (4.63-6.08) M/mm3 Hgb 14.1 (13.7-17.5) gm/L Hct 44.2 (40.1-51.0) % MCV 84.8 (79.0-92.2) fl MCH 27.1 (25.7-32.2) pg MCHC 31.9 L (32.2-35.5) g/dl RDW Std Deviation 46.9 H (35.1-43.9) fL Plt Count 287 (163-337) K/mm3 MPV 12.0 (9.4-12.3) fl Neut % (Auto) 70.5 H (34.0-67.9) % Lymph % (Auto) 17.5 L (21.8-53.1) % Richardson % (Auto) 9.4 (5.3-12.2) % Eos % (Auto) 2.2 (0.8-7.0) Baso % (Auto) 0.2 (0.1-1.2) % Neut # (Auto) 7.22 H (1.78-5.38) K/mm3 Lymph # (Auto) 1.79 (1.32-3.57) K/mm3 Richardson # (Auto) 0.96 H (0.30-0.82) K/mm3 Eos # (Auto) 0.23 (0.04-0.54) K/mm3 Baso # (Auto) 0.02 (0.01-0.08) K/mm3 Manual Slide Review Normal smear ESR 31 H (0-15) mm/hr D-Dimer, Quantitative (0.19-0.50) mg/L Puncture Site ABG pH (7.35-7.45) ABG pCO2 (35.0-45.0) mmHg ABG pO2 (80.0-100.0) mmHg ABG HCO3 (22.0-26.0) meq/L ABG O2 Saturation (96.0-97.0) % ABG Base Excess (-2-2.0) Kong Test A-a Gradient mmHg O2 Delivery Device FiO2 (21.00-100.00) % Sodium 138 (136-145) mEq/L Potassium 4.3 (3.5-5.1) mEq/L Chloride 101 (98-107) mEq/L Carbon Dioxide 29 (21-32) mEq/L Anion Gap 12.3 (5-15) BUN 6 L (7-18) mg/dL Creatinine 0.9 (0.7-1.3) mg/dL Est Cr Clr Drug Dosing 89.00 mL/min Estimated GFR (MDRD) > 60 (>60) mL/min BUN/Creatinine Ratio 6.7 L (14-18) Glucose 305 H (80-115) mg/dL POC Glucose (80-115) mg/dL Hemoglobin A1c (4.50-6.20) % Calcium 9.9 (8.5-10.1) mg/dL Magnesium 1.9 (1.8-2.4) mg/dl Total Bilirubin 0.7 (0.2-1.0) mg/dL AST 25 (15-37) U/L ALT 62 (16-63) U/L Alkaline Phosphatase 129 H (46-116) U/L Troponin I (0.00-0.056) ng/mL C-Reactive Protein 2.7 H* (<1.0) mg/dL NT-Pro-B Natriuret Pep (0-125) pg/mL Total Protein 8.0 (6.4-8.2) g/dl Albumin 3.6 (3.4-5.0) g/dl Globulin 4.4 gm/dL Albumin/Globulin Ratio 0.8 L (1-2) Triglycerides (<150) mg/dL Cholesterol (<200) mg/dL LDL Cholesterol Direct (<100) mg/dL HDL Cholesterol (40-59) mg/dL 01/05/19 01/05/19 01/05/19 Range/Units 18:00 18:00 18:00 WBC (4.23-9.07) K/mm3 RBC (4.63-6.08) M/mm3 Hgb (13.7-17.5) gm/L Hct (40.1-51.0) % MCV (79.0-92.2) fl MCH (25.7-32.2) pg MCHC (32.2-35.5) g/dl RDW Std Deviation (35.1-43.9) fL Plt Count (163-337) K/mm3 MPV (9.4-12.3) fl Neut % (Auto) (34.0-67.9) % Lymph % (Auto) (21.8-53.1) % Richardson % (Auto) (5.3-12.2) % Eos % (Auto) (0.8-7.0) Baso % (Auto) (0.1-1.2) % Neut # (Auto) (1.78-5.38) K/mm3 Lymph # (Auto) (1.32-3.57) K/mm3 Richardson # (Auto) (0.30-0.82) K/mm3 Eos # (Auto) (0.04-0.54) K/mm3 Baso # (Auto) (0.01-0.08) K/mm3 Manual Slide Review ESR (0-15) mm/hr D-Dimer, Quantitative 2.00 H (0.19-0.50) mg/L Puncture Site ABG pH (7.35-7.45) ABG pCO2 (35.0-45.0) mmHg ABG pO2 (80.0-100.0) mmHg ABG HCO3 (22.0-26.0) meq/L ABG O2 Saturation (96.0-97.0) % ABG Base Excess (-2-2.0) Kong Test A-a Gradient mmHg O2 Delivery Device FiO2 (21.00-100.00) % Sodium (136-145) mEq/L Potassium (3.5-5.1) mEq/L Chloride (98-107) mEq/L Carbon Dioxide (21-32) mEq/L Anion Gap (5-15) BUN (7-18) mg/dL Creatinine (0.7-1.3) mg/dL Est Cr Clr Drug Dosing mL/min Estimated GFR (MDRD) (>60) mL/min BUN/Creatinine Ratio (14-18) Glucose (80-115) mg/dL POC Glucose (80-115) mg/dL Hemoglobin A1c 9.40 H (4.50-6.20) % Calcium (8.5-10.1) mg/dL Magnesium (1.8-2.4) mg/dl Total Bilirubin (0.2-1.0) mg/dL AST (15-37) U/L ALT (16-63) U/L Alkaline Phosphatase (46-116) U/L Troponin I (0.00-0.056) ng/mL C-Reactive Protein (<1.0) mg/dL NT-Pro-B Natriuret Pep 3423 H (0-125) pg/mL Total Protein (6.4-8.2) g/dl Albumin (3.4-5.0) g/dl Globulin gm/dL Albumin/Globulin Ratio (1-2) Triglycerides (<150) mg/dL Cholesterol (<200) mg/dL LDL Cholesterol Direct (<100) mg/dL HDL Cholesterol (40-59) mg/dL 01/05/19 01/05/19 01/06/19 Range/Units 19:40 21:29 06:21 WBC (4.23-9.07) K/mm3 RBC (4.63-6.08) M/mm3 Hgb (13.7-17.5) gm/L Hct (40.1-51.0) % MCV (79.0-92.2) fl MCH (25.7-32.2) pg MCHC (32.2-35.5) g/dl RDW Std Deviation (35.1-43.9) fL Plt Count (163-337) K/mm3 MPV (9.4-12.3) fl Neut % (Auto) (34.0-67.9) % Lymph % (Auto) (21.8-53.1) % Richardson % (Auto) (5.3-12.2) % Eos % (Auto) (0.8-7.0) Baso % (Auto) (0.1-1.2) % Neut # (Auto) (1.78-5.38) K/mm3 Lymph # (Auto) (1.32-3.57) K/mm3 Richardson # (Auto) (0.30-0.82) K/mm3 Eos # (Auto) (0.04-0.54) K/mm3 Baso # (Auto) (0.01-0.08) K/mm3 Manual Slide Review ESR (0-15) mm/hr D-Dimer, Quantitative (0.19-0.50) mg/L Puncture Site Rt radial ABG pH 7.48 H (7.35-7.45) ABG pCO2 32.3 L (35.0-45.0) mmHg ABG pO2 57.0 L (80.0-100.0) mmHg ABG HCO3 24.0 (22.0-26.0) meq/L ABG O2 Saturation 91.0 L (96.0-97.0) % ABG Base Excess 1.5 (-2-2.0) Kong Test Positive A-a Gradient 53 mmHg O2 Delivery Device Room air FiO2 21.00 (21.00-100.00) % Sodium (136-145) mEq/L Potassium (3.5-5.1) mEq/L Chloride (98-107) mEq/L Carbon Dioxide (21-32) mEq/L Anion Gap (5-15) BUN (7-18) mg/dL Creatinine (0.7-1.3) mg/dL Est Cr Clr Drug Dosing mL/min Estimated GFR (MDRD) (>60) mL/min BUN/Creatinine Ratio (14-18) Glucose (80-115) mg/dL POC Glucose 172 H 182 H (80-115) mg/dL Hemoglobin A1c (4.50-6.20) % Calcium (8.5-10.1) mg/dL Magnesium (1.8-2.4) mg/dl Total Bilirubin (0.2-1.0) mg/dL AST (15-37) U/L ALT (16-63) U/L Alkaline Phosphatase (46-116) U/L Troponin I (0.00-0.056) ng/mL C-Reactive Protein (<1.0) mg/dL NT-Pro-B Natriuret Pep (0-125) pg/mL Total Protein (6.4-8.2) g/dl Albumin (3.4-5.0) g/dl Globulin gm/dL Albumin/Globulin Ratio (1-2) Triglycerides (<150) mg/dL Cholesterol (<200) mg/dL LDL Cholesterol Direct (<100) mg/dL HDL Cholesterol (40-59) mg/dL 01/06/19 01/06/19 01/06/19 Range/Units 08:15 08:15 08:15 WBC 7.03 (4.23-9.07) K/mm3 RBC 4.84 (4.63-6.08) M/mm3 Hgb 13.2 L (13.7-17.5) gm/L Hct 40.9 (40.1-51.0) % MCV 84.5 (79.0-92.2) fl MCH 27.3 (25.7-32.2) pg MCHC 32.3 (32.2-35.5) g/dl RDW Std Deviation 45.3 H (35.1-43.9) fL Plt Count 252 (163-337) K/mm3 MPV 11.3 (9.4-12.3) fl Neut % (Auto) 59.7 (34.0-67.9) % Lymph % (Auto) 23.9 (21.8-53.1) % Richardson % (Auto) 10.1 (5.3-12.2) % Eos % (Auto) 5.8 (0.8-7.0) Baso % (Auto) 0.4 (0.1-1.2) % Neut # (Auto) 4.19 (1.78-5.38) K/mm3 Lymph # (Auto) 1.68 (1.32-3.57) K/mm3 Richardson # (Auto) 0.71 (0.30-0.82) K/mm3 Eos # (Auto) 0.41 (0.04-0.54) K/mm3 Baso # (Auto) 0.03 (0.01-0.08) K/mm3 Manual Slide Review ESR (0-15) mm/hr D-Dimer, Quantitative (0.19-0.50) mg/L Puncture Site ABG pH (7.35-7.45) ABG pCO2 (35.0-45.0) mmHg ABG pO2 (80.0-100.0) mmHg ABG HCO3 (22.0-26.0) meq/L ABG O2 Saturation (96.0-97.0) % ABG Base Excess (-2-2.0) Kong Test A-a Gradient mmHg O2 Delivery Device FiO2 (21.00-100.00) % Sodium 139 (136-145) mEq/L Potassium 3.8 (3.5-5.1) mEq/L Chloride 103 (98-107) mEq/L Carbon Dioxide 29 (21-32) mEq/L Anion Gap 10.8 (5-15) BUN 13 (7-18) mg/dL Creatinine 0.9 (0.7-1.3) mg/dL Est Cr Clr Drug Dosing 89.00 mL/min Estimated GFR (MDRD) > 60 (>60) mL/min BUN/Creatinine Ratio 14.4 (14-18) Glucose 184 H (80-115) mg/dL POC Glucose (80-115) mg/dL Hemoglobin A1c (4.50-6.20) % Calcium 8.7 (8.5-10.1) mg/dL Magnesium 1.8 (1.8-2.4) mg/dl Total Bilirubin 0.7 (0.2-1.0) mg/dL AST 19 (15-37) U/L ALT 47 (16-63) U/L Alkaline Phosphatase 107 (46-116) U/L Troponin I (0.00-0.056) ng/mL C-Reactive Protein 5.3 H* (<1.0) mg/dL NT-Pro-B Natriuret Pep 3247 H (0-125) pg/mL Total Protein 7.1 (6.4-8.2) g/dl Albumin 2.9 L (3.4-5.0) g/dl Globulin 4.2 gm/dL Albumin/Globulin Ratio 0.7 L (1-2) Triglycerides 92 (<150) mg/dL Cholesterol 123 (<200) mg/dL LDL Cholesterol Direct 83 (<100) mg/dL HDL Cholesterol 30.0 L (40-59) mg/dL Med Orders - Current: Current Medications Hydrocodone Bitart/Acetaminophen ([place] 325-5 Mg) 2 tab PO Q4H PRN PRN Reason: Pain (moderate 4-6) Last Admin: 01/05/19 22:49 Dose: 2 tab Albuterol (Proventil Neb Soln) 2.5 mg NEB Q2H PRN PRN Reason: Shortness of Breath Albuterol/Ipratropium (Duoneb 3.0-0.5 Mg/3 Ml) 3 ml NEB Q6HRRT [facility] Last Admin: 01/06/19 09:14 Dose: 3 ml Amlodipine Besylate (Norvasc) 10 mg PO DAILY [facility] Last Admin: 01/06/19 08:18 Dose: 10 mg Aspirin (Halfprin) 81 mg PO DAILY [facility] Last Admin: 01/06/19 08:16 Dose: 81 mg Carvedilol (Coreg) 25 mg PO BIDMEALS [facility] Last Admin: 01/06/19 06:19 Dose: 25 mg Enoxaparin Sodium (Lovenox) 40 mg SUBCUT DAILY [facility] Last Admin: 01/06/19 08:27 Dose: 40 mg Furosemide (Lasix) 40 mg IVPUSH DAILY [facility] Last Admin: 01/06/19 08:20 Dose: 40 mg Ceftriaxone Sodium 2 gm/ (Sodium Chloride) 100 mls @ 200 mls/hr IV Q24H [facility] Last Admin: 01/05/19 20:21 Dose: 200 mls/hr Azithromycin 500 mg/ Sodium (Chloride) 250 mls @ 250 mls/hr IV Q24H [facility] Stop: 01/09/19 23:59 Insulin Glargine (Lantus) 40 unit SUBCUT DAILY [facility] Last Admin: 01/06/19 08:26 Dose: 40 unit Insulin Human Lispro (Humalog) 0 unit SUBCUT QIDACANDBED [facility]; Protocol Last Admin: 01/06/19 08:24 Dose: 2 unit Lisinopril (Prinivil) 10 mg PO DAILY [facility] Last Admin: 01/06/19 08:17 Dose: 10 mg Miscellaneous Information (Remove Patch) 1 ea TRDERM DAILY [facility] Mometasone Furoate (Asmanex Hfa 100mcg) 0 gm INH BID [facility] Last Admin: 01/06/19 09:17 Dose: 1 each Nicotine (Habitrol) 7 mg TRDERM DAILY [facility] Last Admin: 01/06/19 08:23 Dose: 7 mg Ondansetron HCl (Zofran Odt) 4 mg PO Q4H PRN PRN Reason: nausea, able to take PO Simvastatin (Zocor) 20 mg PO BEDTIME [facility] Sodium Chloride (Saline Flush) 10 ml FLUSH ASDIRECTED PRN PRN Reason: Keep Vein Open Last Admin: 01/05/19 19:23 Dose: 10 ml Discontinued Medications Albuterol/Ipratropium (Duoneb 3.0-0.5 Mg/3 Ml) 3 ml NEB ONETIME ONE Stop: 01/05/19 19:01 Last Admin: 01/05/19 19:09 Dose: 3 ml Carvedilol (Coreg) 25 mg PO ONETIME ONE Stop: 01/05/19 23:45 Last Admin: 01/06/19 00:14 Dose: 25 mg Furosemide (Lasix) 40 mg IVPUSH NOW ONE Stop: 01/05/19 19:56 Last Admin: 01/05/19 20:17 Dose: 40 mg Azithromycin 500 mg/ Sodium (Chloride) 250 mls @ 250 mls/hr IV ONETIME ONE Stop: 01/05/19 23:51 Last Admin: 01/05/19 23:33 Dose: 250 mls/hr Insulin Human Regular (Humulin R) 8 unit SUBCUT ONETIME ONE Stop: 01/05/19 20:08 Last Admin: 01/05/19 20:19 Dose: 8 units Mometasone Furoate (Asmanex Hfa 100mcg) 0 gm INH BIDRT RISHI - Exam Quality Assessment: DVT Prophylaxis. No: Supplemental Oxygen General: Alert, Oriented, Cooperative, No Acute Distress HEENT: Pupils Equal, Pupils Reactive, EOMI, Mucous Membr. Moist/[place] Neck: Supple, Trachea Midline Lungs: Normal Respiratory Effort Cardiovascular: Regular Rate, Regular Rhythm GI/Abdominal Exam: Normal Bowel Sounds, Soft, Non-Tender, No Distention, No Abnormal Bruit (Male) Exam: Deferred Back Exam: Normal Inspection, Full Range of Motion Extremities: Normal Inspection, Normal Range of Motion, Non-Tender, No Pedal Edema, Normal Capillary Refill Skin: Warm, Dry, Intact Wound/Incisions: Healing Well Neurological: No New Focal Deficit Psy/Mental Status: Alert - Plan Plan:: Assessment * 63-year-old male with history of COPD and CHF presents to the emergency room with increasing shortness of breath * CHF exacerbation - BMP 3423 and chest x-ray consistent with CHF; * Pneumonia - chest x-ray with possible right-sided infiltrate. WBC 10.2, suspect protein 2.7 * Respiratory alkalosis: ABG: PH 7.48, PCO2 32.8, HCO3 24 * Poorly controlled insulin-dependent type 2 diabetes * Hypertension/hyperlipidemia * Chronic pain from right knee replacement complications * Tobaccoism Plan * Admit to telemetry MedSurg floor * Lasix 40 mg IV in the morning * FiO2 to keep SPO2 above 92% * Strict I's and O's and daily weights * Echocardiogram * Reconcile home meds * Lantus 50 units daily and medium dose sliding scale insulin * Check to see if patient had a follow-up CT of the chest with contrast for abnormal previous CTA * Albuterol and Atrovent nebulizers every 6 hours and albuterol nebulizer every 2 hours when necessary * Rocephin 2 g to 24 hours * Azithromycin 500 mg IV now then 250 mg daily 4 additional days * CBC, CMP, C-reactive protein, and BNP daily * Fasting cholesterol in the morning * Nicotine patch and smoking cessation education * VTE prophylaxis with Lovenox * CODE STATUS full code * Length of stay likely 3 days
[2019-01-06 12:08] VITALS: BP 119/65
--- NOTE | 2019-01-06 13:02 | PCM.DCSUM1 ---
Discharge Summary - Hospital Course HPI Initial Comments: Noman is a 63-year-old male who presents to the emergency room with 2 day history of increasing shortness of breath. Today he crescendoed and brought the patient into the hospital. Patient states she's had worsening orthopnea and PND. He states he sleeps on 4 pillows. He doesn't usually wake up in the middle night but over the last couple days he has been. He denies any chest pain and only minimal lower extremity edema. He is a diabetic on insulin and has been trying to stop smoking. He is down to 3 cigarettes a day. He states he is not getting any rest and is having difficulty breathing. He has been using a hand- held nebulizer without any relief. Patient was seen here last year with CHF exacerbation and sent home on furosemide. Patient currently is not taking furosemide, because he states no one has prescribed for him. Patient also complains of right knee pain. Apparently he had a knee replacement 2 years ago and had postoperative complications including septic joint. He now takes hydrocodone 10 mg for the pain. Patient denies any EtOH. Review of old records show the patient had a CT scan. -Chest CTA (10/31/17): -No findings of PE -Small bilateral pleural effusions suggesting pulmonary vascular congestion. Findings may represent CHF -Emphysematous changes -Slightly prominent lymph nodes within mediastinum. No prior chest CT available to confirm stability. Findings may be related to old inflammatory process. Recommend follow-up contrast enhanced chest CT in 6 months to confirm stability. Also echocardiogram done on last admission (11/12): -Echo obtained 10/31/17: 1. LVEF, by visual estimation is 20-25% 2. Global and severely decreased left ventricular systolic function 3. Elevated left atrial and left ventricular end-diastolic pressures 4. Restrictive (Grade 3) pattern of LV diastolic filling 5. Low normal right ventricular systolic function 6. Moderately dilated left atrium 7. Mild to moderate mitral valve regurgitation 8. The right ventricular systolic pressure is moderately elevated at 42.5mmHg 9. The inferior vena cava is dilated with respiratory size variation greater than 50% 10. No significant change compared to 01/20/13 Diagnosis: Stroke: No - Discharge Data Discharge Date: 01/06/19 (Admit date: 01/05/19) Discharge Disposition: Home, Self-Care 01 Condition: Good - Discharge Diagnosis/Problem(s) (1) CHF exacerbation SNOMED Code(s): 549970558, [id number] ICD Code: I50.9 - HEART FAILURE, UNSPECIFIED Status: Acute Priority: High Current Visit: Yes Qualifiers: Heart failure type: unspecified Qualified Code(s): I50.9 - Heart failure, unspecified (2) COPD (chronic obstructive pulmonary disease) SNOMED Code(s): 01616374 ICD Code: J44.9 - CHRONIC OBSTRUCTIVE PULMONARY DISEASE, UNSPECIFIED Status : Acute Priority: High Current Visit: Yes Qualifiers: COPD type: emphysema Emphysema type: panlobular Qualified Code(s): J43.1 - Panlobular emphysema (3) Pneumonia SNOMED Code(s): 566859999 ICD Code: J18.9 - PNEUMONIA, UNSPECIFIED ORGANISM Status: Acute Priority : High Current Visit: Yes - Patient Summary/Data Labs Pending at D/C: Echo obtained 01/06/19 Recommended Follow-up Testing/Procedures: Follow-up with primary care provider within 5-7 days of discharge. Recommend re- check electrolytes at that time. Hospital Course: Noman was admitted to the floor for a CHF exacerbation and what appeared to be a pneumonia vs. bronchitis as well. His BNP was elevated and he did report he has been using 4 pillows to sleep due to rather severe orthopnea. He was up to 4L of oxygen at one point during his stay. He was given IVP lasix and started on IV rocephin and Azithromycin. He is a smoker. He responded rather well and was able to be weaned off of oxygen. Today he reported he felt 100% better. He was ambulatory and adamant about going home. This seemed like a reasonable request. His home medications were continued and 40mg daily lasix was started. He was instructed to follow-up with his PCP within 5-7 days of discharge. Suggest re-check potassium at that time. He was discharged on 4 more days of 250mg azithromycin, 5 days of 300mg BID cefdinir, and lasix as noted. We discussed his smoking status and he was provided resources for this. He will be discharged with a nicotine patch. He reported he will try to stop smoking on his own but if not he will have this available to him. He was also given contact information for [place] quits and the [facility] tobacco cessation program. He was instructed to continue his nighttime oxygen as before. - Patient Instructions Diet: Low Sodium, Diabetic Diet Activity: As Tolerated Showering/Bathing: May Shower Notify Provider of: Fever, Increased Pain, Nausea and/or Vomiting - Discharge Plan *PRESCRIPTION DRUG MONITORING PROGRAM REVIEWED*: Not Applicable *COPY OF PRESCRIPTION DRUG MONITORING REPORT IN PATIENT CHANCE: Not Applicable Prescriptions/Med Rec: Azithromycin [Zithromax] 250 mg PO DAILY #4 tab Cefdinir 300 mg PO Q12H #10 capsule Furosemide [Lasix] 40 mg PO DAILY #20 tablet Nicotine [Nicotine Patch] 7 mg TD DAILY #10 patch Home Medications: Home Meds Carvedilol 25 mg PO BID 10/17/14 [History] Lisinopril 10 mg PO DAILY 10/17/14 [History] amLODIPine Besylate [Amlodipine Besylate] 10 mg PO DAILY 10/17/14 [History] Cyclobenzaprine [Flexeril] 5 - 10 mg PO Q8H PRN 12/26/14 [History] Aspirin 81 mg PO DAILY #30 tab.chew 11/01/17 [Rx] Albuterol [Proventil HFA] 1 puff INH QID PRN #1 inhaler 06/24/18 [Rx] Insulin Aspart [NovoLOG] See Protocol SUBCUT TID 06/24/18 [History] Insulin Glarg,Human.Rec.Analog [Lantus Solostar] 65 unit SUBCUT DAILY 06/24/18 [ History] atorvaSTATin [Lipitor] 20 mg PO BEDTIME 06/24/18 [History] Albuterol [Ventolin HFA] 2 puff INH Q4H PRN #1 puff 07/01/18 [Rx] Fluticasone Propionate [Flovent HFA 110 MCG] 1 puff INH BID #1 puff 07/01/18 [Rx ] Hydrocodone/Acetaminophen [Hydrocodon-Acetaminophn 10-325] 10 - 325 tab .ROUTE Q4HR PRN 01/05/19 [History] Azithromycin [Zithromax] 250 mg PO DAILY #4 tab 01/06/19 [Rx] Cefdinir 300 mg PO Q12H #10 capsule 01/06/19 [Rx] Furosemide [Lasix] 40 mg PO DAILY #20 tablet 01/06/19 [Rx] Nicotine [Nicotine Patch] 7 mg TD DAILY #10 patch 01/06/19 [Rx] metFORMIN HCl [Metformin HCl ER] 500 mg PO BID 01/06/19 [History] Oxygen Therapy Mode: Room Air Patient Handouts: Chronic Obstructive Pulmonary Disease, Heart Failure Action Plan, Steps to Quit Smoking Forms: ED Department Discharge Referrals: Angella Phipps PA-C [Primary Care Provider] - 01/15/19 1:30 pm (Please follow up with Angella Phipps on at 130pm.) - Discharge Summary/Plan Comment DC Time >30 min.: Yes (45 mins ) - General Info Date of Service: 01/06/19 Functional Status: Reports: Pain Controlled, Tolerating Diet, Ambulating, Urinating. Denies: New Symptoms - Review of Systems General: Reports: No Symptoms. Denies: Fever, Weakness, Fatigue, Malaise, Chills HEENT: Reports: No Symptoms. Denies: Headaches, Sore Throat Pulmonary: Reports: Cough (chronic ). Denies: Shortness of Breath, Sputum, Wheezing Cardiovascular: Reports: Edema (chronic ). Denies: Chest Pain, Palpitations, Dyspnea on Exertion, Lightheadedness Gastrointestinal: Reports: No Symptoms. Denies: Abdominal Pain, Constipation, Diarrhea, Nausea, Vomiting Genitourinary: Reports: No Symptoms. Denies: Pain Musculoskeletal: Reports: No Symptoms Skin: Reports: No Symptoms. Denies: Cyanosis Neurological: Reports: No Symptoms. Denies: Confusion Psychiatric: Reports: No Symptoms - Patient Data Vitals - Most Recent: Last Vital Signs Temp 98.1 F 01/06/19 11:12 Pulse 55 L 01/06/19 11:12 Resp 16 01/06/19 11:12 BP 119/65 01/06/19 11:12 Pulse Ox 92 L 01/06/19 11:12 Weight - Most Recent: 225 lb 3.2 oz I&O - Last 24 hours: Intake & Output 01/05/19 01/06/19 01/06/19 22:59 06:59 14:59 Intake Total 300 550 Balance 300 550 Lab Results - Last 24 hrs: Laboratory Results - last 24 hr 01/05/19 01/05/19 01/05/19 Range/Units 18:00 18:00 18:00 WBC 10.24 H (4.23-9.07) K/mm3 RBC 5.21 (4.63-6.08) M/mm3 Hgb 14.1 (13.7-17.5) gm/L Hct 44.2 (40.1-51.0) % MCV 84.8 (79.0-92.2) fl MCH 27.1 (25.7-32.2) pg MCHC 31.9 L (32.2-35.5) g/dl RDW Std Deviation 46.9 H (35.1-43.9) fL Plt Count 287 (163-337) K/mm3 MPV 12.0 (9.4-12.3) fl Neut % (Auto) 70.5 H (34.0-67.9) % Lymph % (Auto) 17.5 L (21.8-53.1) % [place] % (Auto) 9.4 (5.3-12.2) % Eos % (Auto) 2.2 (0.8-7.0) Baso % (Auto) 0.2 (0.1-1.2) % Neut # (Auto) 7.22 H (1.78-5.38) K/mm3 Lymph # (Auto) 1.79 (1.32-3.57) K/mm3 [place] # (Auto) 0.96 H (0.30-0.82) K/mm3 Eos # (Auto) 0.23 (0.04-0.54) K/mm3 Baso # (Auto) 0.02 (0.01-0.08) K/mm3 Manual Slide Review Normal smear ESR 31 H (0-15) mm/hr D-Dimer, Quantitative (0.19-0.50) mg/L Puncture Site ABG pH (7.35-7.45) ABG pCO2 (35.0-45.0) mmHg ABG pO2 (80.0-100.0) mmHg ABG HCO3 (22.0-26.0) meq/L ABG O2 Saturation (96.0-97.0) % ABG Base Excess (-2-2.0) Kong Test A-a Gradient mmHg O2 Delivery Device FiO2 (21.00-100.00) % Sodium 138 (136-145) mEq/L Potassium 4.3 (3.5-5.1) mEq/L Chloride 101 (98-107) mEq/L Carbon Dioxide 29 (21-32) mEq/L Anion Gap 12.3 (5-15) BUN 6 L (7-18) mg/dL Creatinine 0.9 (0.7-1.3) mg/dL Est Cr Clr Drug Dosing 89.00 mL/min Estimated GFR (MDRD) > 60 (>60) mL/min BUN/Creatinine Ratio 6.7 L (14-18) Glucose 305 H (80-115) mg/dL POC Glucose (80-115) mg/dL Hemoglobin A1c (4.50-6.20) % Calcium 9.9 (8.5-10.1) mg/dL Magnesium 1.9 (1.8-2.4) mg/dl Total Bilirubin 0.7 (0.2-1.0) mg/dL AST 25 (15-37) U/L ALT 62 (16-63) U/L Alkaline Phosphatase 129 H (46-116) U/L Troponin I (0.00-0.056) ng/mL C-Reactive Protein 2.7 H* (<1.0) mg/dL NT-Pro-B Natriuret Pep (0-125) pg/mL Total Protein 8.0 (6.4-8.2) g/dl Albumin 3.6 (3.4-5.0) g/dl Globulin 4.4 gm/dL Albumin/Globulin Ratio 0.8 L (1-2) Triglycerides (<150) mg/dL Cholesterol (<200) mg/dL LDL Cholesterol Direct (<100) mg/dL HDL Cholesterol (40-59) mg/dL 01/05/19 01/05/19 01/05/19 Range/Units 18:00 18:00 18:00 WBC (4.23-9.07) K/mm3 RBC (4.63-6.08) M/mm3 Hgb (13.7-17.5) gm/L Hct (40.1-51.0) % MCV (79.0-92.2) fl MCH (25.7-32.2) pg MCHC (32.2-35.5) g/dl RDW Std Deviation (35.1-43.9) fL Plt Count (163-337) K/mm3 MPV (9.4-12.3) fl Neut % (Auto) (34.0-67.9) % Lymph % (Auto) (21.8-53.1) % [place] % (Auto) (5.3-12.2) % Eos % (Auto) (0.8-7.0) Baso % (Auto) (0.1-1.2) % Neut # (Auto) (1.78-5.38) K/mm3 Lymph # (Auto) (1.32-3.57) K/mm3 [place] # (Auto) (0.30-0.82) K/mm3 Eos # (Auto) (0.04-0.54) K/mm3 Baso # (Auto) (0.01-0.08) K/mm3 Manual Slide Review ESR (0-15) mm/hr D-Dimer, Quantitative 2.00 H (0.19-0.50) mg/L Puncture Site ABG pH (7.35-7.45) ABG pCO2 (35.0-45.0) mmHg ABG pO2 (80.0-100.0) mmHg ABG HCO3 (22.0-26.0) meq/L ABG O2 Saturation (96.0-97.0) % ABG Base Excess (-2-2.0) Kong Test A-a Gradient mmHg O2 Delivery Device FiO2 (21.00-100.00) % Sodium (136-145) mEq/L Potassium (3.5-5.1) mEq/L Chloride (98-107) mEq/L Carbon Dioxide (21-32) mEq/L Anion Gap (5-15) BUN (7-18) mg/dL Creatinine (0.7-1.3) mg/dL Est Cr Clr Drug Dosing mL/min Estimated GFR (MDRD) (>60) mL/min BUN/Creatinine Ratio (14-18) Glucose (80-115) mg/dL POC Glucose (80-115) mg/dL Hemoglobin A1c 9.40 H (4.50-6.20) % Calcium (8.5-10.1) mg/dL Magnesium (1.8-2.4) mg/dl Total Bilirubin (0.2-1.0) mg/dL AST (15-37) U/L ALT (16-63) U/L Alkaline Phosphatase (46-116) U/L Troponin I (0.00-0.056) ng/mL C-Reactive Protein (<1.0) mg/dL NT-Pro-B Natriuret Pep 3423 H (0-125) pg/mL Total Protein (6.4-8.2) g/dl Albumin (3.4-5.0) g/dl Globulin gm/dL Albumin/Globulin Ratio (1-2) Triglycerides (<150) mg/dL Cholesterol (<200) mg/dL LDL Cholesterol Direct (<100) mg/dL HDL Cholesterol (40-59) mg/dL 01/05/19 01/05/19 01/06/19 Range/Units 19:40 21:29 06:21 WBC (4.23-9.07) K/mm3 RBC (4.63-6.08) M/mm3 Hgb (13.7-17.5) gm/L Hct (40.1-51.0) % MCV (79.0-92.2) fl MCH (25.7-32.2) pg MCHC (32.2-35.5) g/dl RDW Std Deviation (35.1-43.9) fL Plt Count (163-337) K/mm3 MPV (9.4-12.3) fl Neut % (Auto) (34.0-67.9) % Lymph % (Auto) (21.8-53.1) % [place] % (Auto) (5.3-12.2) % Eos % (Auto) (0.8-7.0) Baso % (Auto) (0.1-1.2) % Neut # (Auto) (1.78-5.38) K/mm3 Lymph # (Auto) (1.32-3.57) K/mm3 [place] # (Auto) (0.30-0.82) K/mm3 Eos # (Auto) (0.04-0.54) K/mm3 Baso # (Auto) (0.01-0.08) K/mm3 Manual Slide Review ESR (0-15) mm/hr D-Dimer, Quantitative (0.19-0.50) mg/L Puncture Site Rt radial ABG pH 7.48 H (7.35-7.45) ABG pCO2 32.3 L (35.0-45.0) mmHg ABG pO2 57.0 L (80.0-100.0) mmHg ABG HCO3 24.0 (22.0-26.0) meq/L ABG O2 Saturation 91.0 L (96.0-97.0) % ABG Base Excess 1.5 (-2-2.0) Kong Test Positive A-a Gradient 53 mmHg O2 Delivery Device Room air FiO2 21.00 (21.00-100.00) % Sodium (136-145) mEq/L Potassium (3.5-5.1) mEq/L Chloride (98-107) mEq/L Carbon Dioxide (21-32) mEq/L Anion Gap (5-15) BUN (7-18) mg/dL Creatinine (0.7-1.3) mg/dL Est Cr Clr Drug Dosing mL/min Estimated GFR (MDRD) (>60) mL/min BUN/Creatinine Ratio (14-18) Glucose (80-115) mg/dL POC Glucose 172 H 182 H (80-115) mg/dL Hemoglobin A1c (4.50-6.20) % Calcium (8.5-10.1) mg/dL Magnesium (1.8-2.4) mg/dl Total Bilirubin (0.2-1.0) mg/dL AST (15-37) U/L ALT (16-63) U/L Alkaline Phosphatase (46-116) U/L Troponin I (0.00-0.056) ng/mL C-Reactive Protein (<1.0) mg/dL NT-Pro-B Natriuret Pep (0-125) pg/mL Total Protein (6.4-8.2) g/dl Albumin (3.4-5.0) g/dl Globulin gm/dL Albumin/Globulin Ratio (1-2) Triglycerides (<150) mg/dL Cholesterol (<200) mg/dL LDL Cholesterol Direct (<100) mg/dL HDL Cholesterol (40-59) mg/dL 01/06/19 01/06/19 01/06/19 Range/Units 08:15 08:15 08:15 WBC 7.03 (4.23-9.07) K/mm3 RBC 4.84 (4.63-6.08) M/mm3 Hgb 13.2 L (13.7-17.5) gm/L Hct 40.9 (40.1-51.0) % MCV 84.5 (79.0-92.2) fl MCH 27.3 (25.7-32.2) pg MCHC 32.3 (32.2-35.5) g/dl RDW Std Deviation 45.3 H (35.1-43.9) fL Plt Count 252 (163-337) K/mm3 MPV 11.3 (9.4-12.3) fl Neut % (Auto) 59.7 (34.0-67.9) % Lymph % (Auto) 23.9 (21.8-53.1) % [place] % (Auto) 10.1 (5.3-12.2) % Eos % (Auto) 5.8 (0.8-7.0) Baso % (Auto) 0.4 (0.1-1.2) % Neut # (Auto) 4.19 (1.78-5.38) K/mm3 Lymph # (Auto) 1.68 (1.32-3.57) K/mm3 [place] # (Auto) 0.71 (0.30-0.82) K/mm3 Eos # (Auto) 0.41 (0.04-0.54) K/mm3 Baso # (Auto) 0.03 (0.01-0.08) K/mm3 Manual Slide Review ESR (0-15) mm/hr D-Dimer, Quantitative (0.19-0.50) mg/L Puncture Site ABG pH (7.35-7.45) ABG pCO2 (35.0-45.0) mmHg ABG pO2 (80.0-100.0) mmHg ABG HCO3 (22.0-26.0) meq/L ABG O2 Saturation (96.0-97.0) % ABG Base Excess (-2-2.0) Kong Test A-a Gradient mmHg O2 Delivery Device FiO2 (21.00-100.00) % Sodium 139 (136-145) mEq/L Potassium 3.8 (3.5-5.1) mEq/L Chloride 103 (98-107) mEq/L Carbon Dioxide 29 (21-32) mEq/L Anion Gap 10.8 (5-15) BUN 13 (7-18) mg/dL Creatinine 0.9 (0.7-1.3) mg/dL Est Cr Clr Drug Dosing 89.00 mL/min Estimated GFR (MDRD) > 60 (>60) mL/min BUN/Creatinine Ratio 14.4 (14-18) Glucose 184 H (80-115) mg/dL POC Glucose (80-115) mg/dL Hemoglobin A1c (4.50-6.20) % Calcium 8.7 (8.5-10.1) mg/dL Magnesium 1.8 (1.8-2.4) mg/dl Total Bilirubin 0.7 (0.2-1.0) mg/dL AST 19 (15-37) U/L ALT 47 (16-63) U/L Alkaline Phosphatase 107 (46-116) U/L Troponin I (0.00-0.056) ng/mL C-Reactive Protein 5.3 H* (<1.0) mg/dL NT-Pro-B Natriuret Pep 3247 H (0-125) pg/mL Total Protein 7.1 (6.4-8.2) g/dl Albumin 2.9 L (3.4-5.0) g/dl Globulin 4.2 gm/dL Albumin/Globulin Ratio 0.7 L (1-2) Triglycerides 92 (<150) mg/dL Cholesterol 123 (<200) mg/dL LDL Cholesterol Direct 83 (<100) mg/dL HDL Cholesterol 30.0 L (40-59) mg/dL 01/06/19 Range/Units 11:13 WBC (4.23-9.07) K/mm3 RBC (4.63-6.08) M/mm3 Hgb (13.7-17.5) gm/L Hct (40.1-51.0) % MCV (79.0-92.2) fl MCH (25.7-32.2) pg MCHC (32.2-35.5) g/dl RDW Std Deviation (35.1-43.9) fL Plt Count (163-337) K/mm3 MPV (9.4-12.3) fl Neut % (Auto) (34.0-67.9) % Lymph % (Auto) (21.8-53.1) % [place] % (Auto) (5.3-12.2) % Eos % (Auto) (0.8-7.0) Baso % (Auto) (0.1-1.2) % Neut # (Auto) (1.78-5.38) K/mm3 Lymph # (Auto) (1.32-3.57) K/mm3 [place] # (Auto) (0.30-0.82) K/mm3 Eos # (Auto) (0.04-0.54) K/mm3 Baso # (Auto) (0.01-0.08) K/mm3 Manual Slide Review ESR (0-15) mm/hr D-Dimer, Quantitative (0.19-0.50) mg/L Puncture Site ABG pH (7.35-7.45) ABG pCO2 (35.0-45.0) mmHg ABG pO2 (80.0-100.0) mmHg ABG HCO3 (22.0-26.0) meq/L ABG O2 Saturation (96.0-97.0) % ABG Base Excess (-2-2.0) Kong Test A-a Gradient mmHg O2 Delivery Device FiO2 (21.00-100.00) % Sodium (136-145) mEq/L Potassium (3.5-5.1) mEq/L Chloride (98-107) mEq/L Carbon Dioxide (21-32) mEq/L Anion Gap (5-15) BUN (7-18) mg/dL Creatinine (0.7-1.3) mg/dL Est Cr Clr Drug Dosing mL/min Estimated GFR (MDRD) (>60) mL/min BUN/Creatinine Ratio (14-18) Glucose (80-115) mg/dL POC Glucose 189 H (80-115) mg/dL Hemoglobin A1c (4.50-6.20) % Calcium (8.5-10.1) mg/dL Magnesium (1.8-2.4) mg/dl Total Bilirubin (0.2-1.0) mg/dL AST (15-37) U/L ALT (16-63) U/L Alkaline Phosphatase (46-116) U/L Troponin I (0.00-0.056) ng/mL C-Reactive Protein (<1.0) mg/dL NT-Pro-B Natriuret Pep (0-125) pg/mL Total Protein (6.4-8.2) g/dl Albumin (3.4-5.0) g/dl Globulin gm/dL Albumin/Globulin Ratio (1-2) Triglycerides (<150) mg/dL Cholesterol (<200) mg/dL LDL Cholesterol Direct (<100) mg/dL HDL Cholesterol (40-59) mg/dL Med Orders - Current: Current Medications Hydrocodone Bitart/Acetaminophen ([place] 325-5 Mg) 2 tab PO Q4H PRN PRN Reason: Pain (moderate 4-6) Last Admin: 01/05/19 22:49 Dose: 2 tab Albuterol (Proventil Neb Soln) 2.5 mg NEB Q2H PRN PRN Reason: Shortness of Breath Albuterol/Ipratropium (Duoneb 3.0-0.5 Mg/3 Ml) 3 ml NEB Q6HRRT [facility] Last Admin: 01/06/19 09:14 Dose: 3 ml Amlodipine Besylate (Norvasc) 10 mg PO DAILY [facility] Last Admin: 01/06/19 08:18 Dose: 10 mg Aspirin (Halfprin) 81 mg PO DAILY [facility] Last Admin: 01/06/19 08:16 Dose: 81 mg Carvedilol (Coreg) 25 mg PO BIDMEALS [facility] Last Admin: 01/06/19 06:19 Dose: 25 mg Enoxaparin Sodium (Lovenox) 40 mg SUBCUT DAILY [facility] Last Admin: 01/06/19 08:27 Dose: 40 mg Furosemide (Lasix) 40 mg IVPUSH DAILY [facility] Last Admin: 01/06/19 08:20 Dose: 40 mg Ceftriaxone Sodium 2 gm/ (Sodium Chloride) 100 mls @ 200 mls/hr IV Q24H [facility] Last Admin: 01/05/19 20:21 Dose: 200 mls/hr Azithromycin 500 mg/ Sodium (Chloride) 250 mls @ 250 mls/hr IV Q24H [facility] Stop: 01/09/19 23:59 Insulin Glargine (Lantus) 40 unit SUBCUT DAILY [facility] Last Admin: 01/06/19 08:26 Dose: 40 unit Insulin Human Lispro (Humalog) 0 unit SUBCUT QIDACANDBED [facility]; Protocol Last Admin: 01/06/19 12:35 Dose: 2 unit Lisinopril (Prinivil) 10 mg PO DAILY [facility] Last Admin: 01/06/19 08:17 Dose: 10 mg Miscellaneous Information (Remove Patch) 1 ea TRDERM DAILY [facility] Mometasone Furoate (Asmanex Hfa 100mcg) 0 gm INH BID [facility] Last Admin: 01/06/19 09:17 Dose: 1 each Nicotine (Habitrol) 7 mg TRDERM DAILY [facility] Last Admin: 01/06/19 08:23 Dose: 7 mg Ondansetron HCl (Zofran Odt) 4 mg PO Q4H PRN PRN Reason: nausea, able to take PO Simvastatin (Zocor) 20 mg PO BEDTIME [facility] Sodium Chloride (Saline Flush) 10 ml FLUSH ASDIRECTED PRN PRN Reason: Keep Vein Open Last Admin: 01/05/19 19:23 Dose: 10 ml Discontinued Medications Albuterol/Ipratropium (Duoneb 3.0-0.5 Mg/3 Ml) 3 ml NEB ONETIME ONE Stop: 01/05/19 19:01 Last Admin: 01/05/19 19:09 Dose: 3 ml Carvedilol (Coreg) 25 mg PO ONETIME ONE Stop: 01/05/19 23:45 Last Admin: 01/06/19 00:14 Dose: 25 mg Furosemide (Lasix) 40 mg IVPUSH NOW ONE Stop: 01/05/19 19:56 Last Admin: 01/05/19 20:17 Dose: 40 mg Azithromycin 500 mg/ Sodium (Chloride) 250 mls @ 250 mls/hr IV ONETIME ONE Stop: 01/05/19 23:51 Last Admin: 01/05/19 23:33 Dose: 250 mls/hr Insulin Human Regular (Humulin R) 8 unit SUBCUT ONETIME ONE Stop: 01/05/19 20:08 Last Admin: 01/05/19 20:19 Dose: 8 units Mometasone Furoate (Asmanex Hfa 100mcg) 0 gm INH BIDRT RISHI - Exam Quality Assessment: Reports: DVT Prophylaxis. Denies: Supplemental Oxygen General: Reports: Alert, Oriented, Cooperative HEENT: Reports: Pupils Equal, Pupils Reactive, EOMI, Mucous Membr. Moist/[place] Neck: Reports: Supple, Trachea Midline Lungs: Reports: Normal Respiratory Effort, Decreased Breath Sounds Cardiovascular: Reports: Regular Rate, Regular Rhythm GI/Abdominal Exam: Normal Bowel Sounds, Soft, Non-Tender, No Distention, No Abnormal Bruit (Male) Exam: Deferred Rectal (Males) Exam: Deferred Back Exam: Reports: Normal Inspection, Full Range of Motion Extremities: Normal Inspection, Normal Range of Motion, Non-Tender, Normal Capillary Refill, Pedal Edema (1+) Skin: Reports: Warm, Dry, Intact Neurological: Reports: No New Focal Deficit Psy/Mental Status: Reports: Alert, Normal Affect, Normal Mood
[2019-01-06] MEDS ORDERED: Simvastatin 20 MG Tab PO SCH (21:00)
[2019-01-06] MEDS ORDERED: Non-Formulary Medication 1 Each (Atorvastatin 20 MG) PO SCH (21:00)
[2019-01-06] MEDS ORDERED: Azithromycin 500 MG in Sodium Chloride 0.9% 250 ML IV SCH (23:00)
== END 2019-01-06 15:25 | disposition home or self-care (01) | DRG 194 ==
LOC: JD.ED 17:42 → JD.MS 20:07
PROVIDERS: ADMIT Family Medicine; ATTEND Family Medicine
DX: J18.9 Pneumonia, unspecified organism (principal); E87.3 Alkalosis; E11.9 Type 2 diabetes mellitus without complications; F17.210 Nicotine dependence, cigarettes, uncomplicated; I50.9 Heart failure, unspecified; J43.1 Panlobular emphysema; E78.00 Pure hypercholesterolemia, unspecified; M19.90 Unspecified osteoarthritis, unspecified site; E78.5 Hyperlipidemia, unspecified; Z96.651 Presence of right artificial knee joint; Z79.82 Long term (current) use of aspirin; Z79.899 Other long term (current) drug therapy; Z79.4 Long term (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
CPT/HCPCS: 36415; 36600; 71045; 71045-26; 80053; 80061; 82803; 82962; 83036; 83735; 83880; 84484; 85025; 85379; 85652; 86140; 87040; 93005; 93010; 93306; 94640; 94761; 99222; 99239; 99285; 99285-25; A9270-GY; J0456; J0696; J1650; J1815-GY; J1940; J7030; J7050; J7620-GY

== ENCOUNTER 2022-05-24 08:46 | Emergency (ER) | payer BC, MEDICAID, MEDICARE ==
[2022-05-24 09:18] VITALS: BP 158/97; PULSE 112
[2022-05-24] MEDS ORDERED: Sodium Chloride 0.9% 10 ML Syringe FLUSH PRN (09:21)
[2022-05-24] MEDS ORDERED: Albuterol/Ipratropium 3.0-0.5 MG/3 ML Neb Soln NEB ONE (09:22)
[2022-05-24] MEDS ORDERED: Furosemide 40 MG/4 ML VIAL IVPUSH ONE (09:22)
[2022-05-24] MEDS ORDERED: Insulin Regular, Human 100 Units/ML 3 ML Vial SUBCUT ONE (10:22)
[2022-05-24 11:24] LABS: CORONAVIRUS COVID-19 NAA NEGATIVE (NEGATIVE)
== END 2022-05-24 13:15 | disposition home or self-care (01) ==
LOC: JD.ED 08:46
DX: I11.0 Hypertensive heart disease with heart failure (principal); I50.9 Heart failure, unspecified; R77.8 Other specified abnormalities of plasma proteins; E78.00 Pure hypercholesterolemia, unspecified; J44.9 Chronic obstructive pulmonary disease, unspecified; E11.9 Type 2 diabetes mellitus without complications; F17.210 Nicotine dependence, cigarettes, uncomplicated; Z79.4 Long term (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; Z79.899 Other long term (current) drug therapy; Z20.822 Contact with and (suspected) exposure to COVID-19
CPT/HCPCS: 0241U; 36415; 71045; 71045-26; 80053; 83880; 84484; 85025; 86140; 93005; 94640; 96374; 99285-25; J1815-GY; J1940; J3490; J7620-GY

== ENCOUNTER 2023-10-09 04:11 | Emergency (ER) | payer MEDICARE ==
[2023-10-09] MEDS: Nitroglycerin 0.4 MG Tab.SL SL PRN (04:19)
[2023-10-09] MEDS: methylPREDNISolone Sodium Succinate 125 MG/2 ML SDV IVPUSH ONE (04:26)
[2023-10-09] MEDS: Nitroglycerin 0.4 MG Tab.SL ONE (04:29)
[2023-10-09] MEDS: methylPREDNISolone Sodium Succinate 125 MG/2 ML SDV ONE (04:29)
[2023-10-09] MEDS: Sodium Chloride 0.9% 1,000 ML ONE (04:30)
[2023-10-09] MEDS: Albuterol/Ipratropium 3.0-0.5 MG/3 ML Neb Soln ONE (04:35)
[2023-10-09 04:53] LABS: BASOPHILS ABSOLUTE AUTO 0.1 K/mm3 (0.0-0.2); BASOPHILS PERCENT AUTO 0.5 % (0.0-1.0); EOSINOPHILS ABSOLUTE AUTO 0.3 K/mm3 (0.0-0.4); HEMATOCRIT 53.6 % (42.0-52.0); IMMATURE GRAN PERCENT AUTO 0.7 % (0.0-0.4); LYMPHOCYTES ABSOLUTE AUTO 4.3 K/mm3 (1.0-4.8); LYMPHOCYTES PERCENT AUTO 30.2 % (24.0-44.0); MEAN CORPUSCULAR HEMOGLOBIN 28.2 pg (28.0-32.0); MEAN CORPUSCULAR HGB CONC 31.7 g/dl (32.0-36.0); MEAN PLATELET VOLUME 11.3 fl (9.4-12.4); MONOCYTES ABSOLUTE AUTO 1.2 K/mm3 (0.0-0.8); MONOCYTES PERCENT AUTO 8.3 % (0.0-8.0); NEUTROPHILS ABSOLUTE AUTO 8.4 K/mm3 (1.8-7.7); NEUTROPHILS PERCENT AUTO 58.3 % (41.0-71.0); PLATELET COUNT,PLT 312 K/mm3 (150-400); RED BLOOD CELL COUNT 6.02 M/mm3 (4.52-5.90); WHITE BLOOD CELL COUNT,WBC 14.33 K/mm3 (3.9-11.3)
[2023-10-09 04:58] LABS: INR 1.02; PROTHROMBIN TIME 10.9 SECONDS (9.7-12.0)
[2023-10-09 05:00] LABS: PTT,PARTIAL THROMBOPLSTIN TIME 29.4 SECONDS (21.7-31.4)
[2023-10-09 05:08] LABS: A/G RATIO 0.7 (1-2); ALBUMIN 3.3 g/dl (3.4-5.0); ANION GAP 15.6 (5-15); BILIRUBIN TOTAL 0.5 mg/dL (0.2-1.0); BUN/CREATININE RATIO 10.9 (14-18); CALCIUM 9.1 mg/dL (8.5-10.1); CREATININE 1.1 mg/dL (0.7-1.3); EST CRCL DRUG DOSING (CG) 66.06 mL/min; POTASSIUM,K 4.6 mEq/L (3.5-5.1)
[2023-10-09] MEDS: Sodium Chloride 0.9% 500 ML IV ONE (06:00)
[2023-10-09] MEDS: Furosemide 40 MG/4 ML VIAL IVPUSH ONE (06:45)
[2023-10-09 09:14] VITALS: BP 155/91; PULSE 105
== END 2023-10-09 09:10 | disposition left against medical advice (07) ==
LOC: JD.ED 04:11
DX: J44.1 Chronic obstructive pulmonary disease with (acute) exacerbation (principal); I11.0 Hypertensive heart disease with heart failure; I50.9 Heart failure, unspecified; E78.00 Pure hypercholesterolemia, unspecified; E11.9 Type 2 diabetes mellitus without complications; Z79.4 Long term (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; Z79.82 Long term (current) use of aspirin; Z79.51 Long term (current) use of inhaled steroids; Z79.2 Long term (current) use of antibiotics; Z79.899 Other long term (current) drug therapy
CPT/HCPCS: 36415; 71045; 80053; 83880; 84484; 85025; 85610; 85730; 93005; 94660; 96361; 96374; 96375; 99285; J1940; J2930; J7030; J7620-GY

== ENCOUNTER 2024-04-13 03:10 | Emergency (ER) | payer MEDICAID, MEDICARE ==
[2024-04-13] MEDS ORDERED: Sodium Chloride 0.9% 10 ML Syringe FLUSH PRN (03:22)
[2024-04-13 03:28] LABS: BASOPHILS ABSOLUTE AUTO 0.1 K/mm3 (0.0-0.2); BASOPHILS PERCENT AUTO 0.6 % (0.0-1.0); EOSINOPHILS ABSOLUTE AUTO 0.4 K/mm3 (0.0-0.4); EOSINOPHILS PERCENT AUTO 5.2 % (0.0-6.0); HEMATOCRIT 50.1 % (42.0-52.0); HEMOGLOBIN 15.9 gm/dl (14.0-18.0); IMMATURE GRAN ABSOLUTE AUTO 0.03 K/mm3 (0.00-0.05); IMMATURE GRAN PERCENT AUTO 0.4 % (0.0-0.4); LYMPHOCYTES PERCENT AUTO 25.3 % (24.0-44.0); MEAN CORPUSCULAR HEMOGLOBIN 26.5 pg (28.0-32.0); MEAN CORPUSCULAR HGB CONC 31.7 g/dl (32.0-36.0); MEAN CORPUSCULAR VOLUME 83.6 fl (83.0-99.0); MEAN PLATELET VOLUME 10.9 fl (9.4-12.4); NEUTROPHILS ABSOLUTE AUTO 4.4 K/mm3 (1.8-7.7); NEUTROPHILS PERCENT AUTO 55.5 % (41.0-71.0); PLATELET COUNT,PLT 261 K/mm3 (150-400); RED BLOOD CELL COUNT 5.99 M/mm3 (4.52-5.90)
[2024-04-13 03:38] LABS: INR 1.08; PROTHROMBIN TIME 11.4 SECONDS (9.7-12.0)
[2024-04-13 03:41] LABS: A/G RATIO 0.6 (1-2); ALBUMIN 2.9 g/dl (3.4-5.0); BILIRUBIN TOTAL 0.7 mg/dL (0.2-1.0); BUN/CREATININE RATIO 15.5 (14-18); CALCIUM 9.1 mg/dL (8.5-10.1); CREATININE 1.1 mg/dL (0.7-1.3); EST CRCL DRUG DOSING (CG) 66.06 mL/min; PROTEIN TOTAL,TP 7.6 g/dl (6.4-8.2)
[2024-04-13] MEDS: Sodium Chloride 0.9% 1,000 ML IV SCH (03:44)
[2024-04-13] MEDS: Iopamidol 612 MG/ML 100 ML Bottle IVPUSH ONE (03:47)
[2024-04-13] MEDS: Sodium Chloride 0.9% 1,000 ML IV ONE (04:34)
[2024-04-13 04:39] VITALS: PULSE 85
[2024-04-13 05:13] VITALS: BP 131/77
[2024-04-13] MEDS: Dextrose 5%-Lactated Ringers 1,000 ML IV SCH (05:30)
== END 2024-04-13 06:40 ==
LOC: JD.ED 03:10
DX: I63.232 Cerebral infarction due to unspecified occlusion or stenosis of left carotid arteries (principal); E78.00 Pure hypercholesterolemia, unspecified; I10 Essential (primary) hypertension; J44.9 Chronic obstructive pulmonary disease, unspecified; E11.9 Type 2 diabetes mellitus without complications; Z79.82 Long term (current) use of aspirin; Z79.4 Long term (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; Z79.899 Other long term (current) drug therapy
CPT/HCPCS: 36415; 70450; 70496; 70498; 71045; 80053; 84484; 85025; 85610; 93005; J7030; J7121; Q9967; 51702; 96360; 96361; 99285-25